=== PATIENT | male | born 1940 | race Caucasian/White ===

== ENCOUNTER 2019-04-02 06:54 | Day surgery (SDC) | payer MEDICARE, OTHER, SELFPAY ==
[2019-03-30 13:18] LABS: Hematocrit 34.9 % (40-54); Hemoglobin 11.5 g/dL (13.0-16.5); Mean Corpuscular Hgb 29.9 pg (27.0-32.0); Mean Corpuscular Volume 90.9 fL (80-94); Mean Platelet Vol. 10.8 fl (6.2-12.0); Platelet Count 273 K/mm3 (150-450); RBC Distribution Width CV 14.2 % (11.6-14.6); RBC Distribution Width SD 47.3 fl (35.1-43.9); Red Blood Count 3.84 M/mm3 (4.6-6.2); White Blood Count 8.3 K/mm3 (4.4-11.0)
[2019-03-30 13:41] LABS: Anion Gap 9 (5-15); BUN 38 mg/dL (7-18); BUN/Creat Ratio 17.7 RATIO (10-20); Calcium,Total 9.2 mg/dL (8.5-10.1); Chloride 109 mmol/L (98-107); Creatinine, Serum 2.15 mg/dL (0.70-1.30); EST Glomerular Filtration Rate 32 mL/min (>60); Est Glom Filt Rate - Afr Amer 38 mL/min (>60); Glucose 136 mg/dL (74-106); Potassium 4.2 mmol/L (3.5-5.1); Sodium Level 139 mmol/L (136-145)
--- NOTE | 2019-04-02 | IMM_PTH ---
PATIENT: BRYANT MEZA Jr. [place] [facility] [place][id number] AGE/SX: 78/M ROOM: RE04/02/[address]: Dr. Arnoldo Faye MD : 1940 BED: DIS: 04/02/2019 SPEC #: [id number] RECD: 04/03/19 10:00 STATUS: RAFAELA REQ #: [id number] BERNARDO: 04/02/19 00:[address]: Arnoldo Faye DEPT: IMMUNOHISTOCHEMISTRY RECD BY: Helene Frias ENTERED: 04/03/19 10:01 SP TYPE: IMMUNO OTHR DR: Dr. Mark Duval MD Tissues: Nasopharynx, NOS Procedures: BCL-2 (add) CD20 (add) CD45 (add) CD5 (add) CD79A (add) CD3 (initial) PHYSICIAN & INSTITUTION [place] [id number] SPECIMEN INFORMATION: Tissue Source: Nasopharyngeal biopsy Clinical Info: Chronic serous otitis media right ear, nasal congestion Specimen Number: [id number] CPT code: 44797, 80910 x5 METHODOLOGY: Deparaffinized sections of prefer/formalin-fixed tissue or PAP/DQ stained slides are incubated with monoclonal/polyclonal antibodies/oligonucleotide probes. Localization is made via biotin free immunoperoxidase method. Appropriate controls are performed and reacted as expected. Results on target cell population are indicated in the following table: RESULTS: ANTIBODY / CLONE RESULT CD3 (PS1) positive CD5 (SP10) positive CD20 (L26) positive CD45 (RP2/18) positive CD79a (11E3) positive BCL-2 (bcl-2/100/D5) positive, focal These tests were developed and their performance characteristics determined by [facility]. They may not have been cleared or approved by the U.S. Food and Drug Administration. The FDA has determined that such clearance or approval is not necessary. INTERPRETATION: Nasopharyngeal biopsy: Consistent with reactive lymphoid hyperplasia. DAYANNA:noreen 04/03/19
[2019-04-02 07:12] VITALS: BP 137/66; PULSE 84; RESP 17; TEMP 36.6; O2SAT 99; BMI 35.6
[2019-04-02 07:41] LABS: Bedside Glucose 153 mg/dL (70-110)
--- NOTE | 2019-04-02 08:30 | PHA_PTH ---
PATIENT: BRYANT MEZA Jr. LOC: [facility] – [place] U#:[id number] AGE/SX: 78/M ROOM: RE04/02/[address]: Dr. Arnoldo Faye MD : 1940 BED: DIS: 04/02/2019 SPEC #: [id number] RECD: 04/02/19 10:42 STATUS: RAFAELA RERui #: [id number] BERNARDO: 04/02/19 08:[address]: Arnoldo Faye DEPT: SURGICAL PATHOLOGY RECD BY: Eamon Menard ENTERED: 04/02/19 11:12 SP TYPE: PHARYNX BX OTHR DR: Dr. Mark Duval MD Tissues: Pharynx, NOS Procedures: Surgery Specimen Level IV HEADER OPERATION: Myringotomy, T tube PRE-OP DIAGNOSIS: Chronic serous otitis media right ear, nasal congestion TISSUE SUBMITTED: Nasopharyngeal biopsy MICROSCOPIC DIAGNOSIS Nasopharyngeal biopsy: Consistent with reactive lymphoid lymphoid hyperplasia. Negative for malignancy. See comment. SJ:noreen 04/03/19 COMMENT The specimen may represent tonsillar/adenoid tissue. Immunohistochemistry ([id number]) supports the above diagnosis. MICROSCOPIC DESCRIPTION Slides are reviewed. GROSS DESCRIPTION Received in fixative is one container labeled with the patient's name and designated nasopharyngeal biopsy. The specimen consists of two irregular fragments of pelayo-pink soft tissue that in aggregate measure 0.6 x 0.3 x 0.1 cm. The specimen is totally submitted in one cassette. / DAYANNA:noreen 04/02/19 TC:5 CPT: 67961
--- NOTE | 2019-04-02 08:32 | DCINST_ITS ---
Discharge Diet: No Restrictions Discharge Activity: Return to Normal Activity Additional Activity Instructions:: Dry ear precautions. Ear drops....5 drops right ear twice a day for 3 days. Allergies/Adverse Reactions: Allergies aspirin Allergy (Verified 04/02/19 07:06) Other CAUSES BLACK STOOL lisinopril Allergy (Verified 04/02/19 07:06) Shortness of breath Medications to take at Discharge Albuterol IH (ProAir) [Proair Hfa (SP)Vent Pts] 1 - 2 puff INHALATION Q4H PRN PRN 03/26/19 Amlodipine [Norvasc] 5 mg PO DAILY 03/26/19 Atorvastatin Calcium [Lipitor] 40 mg PO QHS 03/26/19 Clopidogrel Bisulfate [Plavix] 75 mg PO DAILY 03/26/19 Fluticasone 0.05% [Flonase Nasal [place]] 2 spray NASAL DAILY 03/26/19 Furosemide [Lasix] 20 mg PO DAILY 03/26/19 Glimepiride [Amaryl] 2 mg PO DAILY 03/26/19 Hydroxychloroquine [Plaquenil] 200 mg PO DAILYCM 03/26/19 Losartan Potassium 100 mg PO DAILY 03/26/19 Metoprolol Tartrate 12.5 mg PO BID 03/26/19 Pantoprazole Sodium 40 mg PO DAILY 03/26/19 Sitagliptin Phosphate [Januvia] 50 mg PO DAILY 03/26/19 Tamsulosin HCl [Flomax] 0.4 mg PO DAILY 03/26/19 Primary Care Physician: Mark Duval MD [Primary Care Provider] - Test Results: Test results from this visit will be discussed in further detail at your follow- up appointment, if applicable.
[2019-04-02] MEDS: Ciprofloxacin 0.3% 2.5ml Bottle 1 DRP (08:47)
[2019-04-02] MEDS: Oxymetazoline 0.05% 1 SPRAY SPRAY.BTL 15 SPRAY (08:48)
--- NOTE | 2019-04-02 08:56 | OP.PCM_ITS ---
Report of Operation Date of Procedure: 04/02/19 Pre-Operative Diagnosis: chronic serous otitis media right ear Post-Operative Diagnosis: same Surgery/Procedure Performed:: right myringotomy with T tube. nasopharyngeal biopsy Description of Surgical Findings:: full serous effusion Type of Anesthesia:: General Anesthesiologist: Mark Anthony Washburn Specimen's removed: nasopharyngeal biopsy Estimated Blood Loss (mL): minimal Description of Procedure: The patient was taken to the OR on 04/02/19. He was placed in the supine pos ition on the OR table. He was given sufficient general anesthesia. The operating microscope was used for the ear portion of the case. A speculum was inserted into the right ear. Cerumen was removed using a curette. An incision was placed in the anterior inferior quadrant. Fluid was suctioned from the middle ear with a #5 suction. A T tube was placed without difficulty. Cipro drops were instilled into the middle ear. Next, a zero degree rigid nasal endoscope was passed through the nose and into the nasopharynx. The intended biopsy site was injected with 1% lidocaine with epinephrine. I then biopsied the area of the fossa of Rosenmuller on the right. Hemostasis was achieved with suction cautery. All instrumentation was then removed. The patient was awoken and brought to the recovery room in stable condition. Blood loss minimal, replacement none. Sponge, needle and instrument count were correct at the end of the procedure.
[2019-04-02 09:04] VITALS: BP 116/64; BP 137/66; PULSE 75; RESP 16; TEMP 36.4; O2SAT 94
[2019-04-02 09:26] VITALS: BP 137/66; BP 137/71; PULSE 74; RESP 16; TEMP 36.4; O2SAT 98
[2019-04-02 09:31] LABS: Bedside Glucose 123 mg/dL (70-110)
[2019-04-02 09:48] VITALS: BP 137/66
== END 2019-04-02 10:01 | disposition home or self-care (01) ==
LOC: SDC 06:56 → AC 06:57
PROVIDERS: Family Provider Family Medicine; PCP Family Medicine; Referring Provider Otolaryngology; Visit Provider Otolaryngology
PROC: (CPT 42999; principal; 2019-04-02 08:15)
PROC: (CPT 42999; 2019-04-02 08:15)
DX: H65.21 Chronic serous otitis media, right ear (principal); R09.81 Nasal congestion; I12.9 Hypertensive chronic kidney disease with stage 1 through stage 4 chronic kidney disease, or unspecified chronic kidney disease; E11.22 Type 2 diabetes mellitus with diabetic chronic kidney disease; N18.3 Chronic kidney disease, stage 3 (moderate); M06.9 Rheumatoid arthritis, unspecified; E78.00 Pure hypercholesterolemia, unspecified; G47.30 Sleep apnea, unspecified; H40.9 Unspecified glaucoma; K21.9 Gastro-esophageal reflux disease without esophagitis; Z79.02 Long term (current) use of antithrombotics/antiplatelets; Z79.52 Long term (current) use of systemic steroids; Z79.84 Long term (current) use of oral hypoglycemic drugs; Z79.899 Other long term (current) drug therapy; Z85.72 Personal history of non-Hodgkin lymphomas; Z87.891 Personal history of nicotine dependence
CPT/HCPCS: 42999; 69436; 36415; 80048; 82962; 85027; 88305; 88341; 88342; J7120; J2405

== ENCOUNTER 2020-10-03 12:35 | Emergency (ER) | payer MEDICARE, OTHER, SELFPAY ==
[2020-10-03 12:36] VITALS: BP 198/88; PULSE 87; RESP 18; TEMP 36.2; O2SAT 98; BMI 34.9
--- NOTE | 2020-10-03 12:52 | CT_ITS ---
STUDY: CT ABDOMEN AND PELVIS WITHOUT CONTRAST REASON FOR EXAM: Male, 80 years old. LLQ ABD PAIN RADIATING INTO RLQ. CONSTIPATION. DYSURIA. RADIATION DOSAGE (If Supplied By Facility): CTDIvol = ( 20.91 ) mGy, DLP = ( 1039.76 ) mGycm TECHNIQUE: Transaxial images were obtained from the dome of the diaphragm to the symphysis pubis without oral contrast, and without intravenous contrast. Sagittal and coronal images were reconstructed. Individualized dose optimization techniques were used for this CT. COMPARISON: None. FINDINGS: Minimal increased markings at the left lung base most likely representing linear atelectasis and/or scarring. Coronary artery calcification. Normal liver. Normal gallbladder and extrahepatic biliary system. Normal spleen. Normal pancreas. Normal bilateral adrenal glands. Normal right kidney. Normal left kidney. Nonspecific bilateral perinephric stranding. There is a small hiatal hernia. Normal small intestine. There are multiple colonic diverticula consistent with diverticulosis. The sigmoid colon is redundant. It extends into the right-sided At the level of the right hemipelvis. Increased markings are seen in the fat in the right lower quadrant. There may be a mild degree of diverticulitis with involvement of the right lower quadrant. There is non-visualization of the appendix. There is diffuse atherosclerotic calcification of the abdominal aorta and its major visceral branches, without a demonstrated aneurysm. Normal inferior vena cava. Normal retroperitoneum. Normal urinary bladder. There is enlargement of the prostate gland. It measures 3.7 cm x 5.8 cm. This causes indentation of the bladder base. There is a small umbilical hernia containing fat. Moderate degree of disc space narrowing with spondylosis at the L2-L3 level. Loss of the normal lumbar lordosis. CT/Abdomen/Pelvis without Cont IMPRESSION: Sigmoid diverticulosis without findings to suggest a mild degree of sigmoid diverticulitis. The sigmoid colon is redundant and extends into the right lower quadrant where there is evidence of inflammatory changes in the surrounding peritoneal fat. Electronically Signed: Ej Fields MD at 13:31 EST , Service support ,
--- NOTE | 2020-10-03 12:55 | ED.VIS.GI ---
History of Present Illness Chief Complaint: Abd Pain Narrative: Patient presenting for evaluation secondary to abdominal pain. Patient reports that he has a history of lymphoma, has a minor history of some abdominal surgeries in the past. He does report that he has had a past history of bowel obstructions, and states that today he feels as if he may potentially have one. Patient reports that he woke up today feeling as if he was having abdominal pain and distention. Abdominal pain is a continuous pain across his lower abdomen that is sharp worse with palpation and movement. Patient has had a normal bowel movement yesterday, but states that today he is unable to pass flatus. He has nausea but no vomiting. He denies any fevers. Review of systems otherwise negative. Past Medical History - Allergies and Home Meds Allergies/Adverse Reactions: Allergies aspirin Allergy (Verified 10/03/20 12:36) Other CAUSES BLACK STOOL lisinopril Allergy (Verified 10/03/20 12:36) Shortness of breath Primary Care Physician: Mark Duval MD [Primary Care Provider] - Prior records reviewed: Yes Past Medical History: - - BPH, hypertension, hyperlipidemia, diabetes, prior history of bowel obstructions, lymphoma Lives: Spouse/ Significant Other Smoking Status: Former smoker Alcohol: None Drugs: None Review of Systems All systems negative except as indicated General: Denies: Chills, Fever, Sweats Eyes: Denies: Visual changes - bilaterally, Diplopia ENT: Denies: Rhinorrhea, Sore throat Cardiovascular: Denies: Chest pain, Palpitations Respiratory: Denies: Dyspnea, Cough, Dyspnea on exertion Gastrointestinal: Reports: Abdominal pain, Nausea, Constipation. Denies: Vomiting Genitourinary: Denies: Dysuria, Hematuria, Frequency Musculoskeletal: Denies: Back pain, Extremity Pain Skin: Denies: Rash, Wounds Neurological: Denies: Headache, Weakness, Numbness Physical Exam Vital Signs/Narrative: Vital Signs Temp Pulse Resp BP Pulse Ox 10/03/20 12:36 97.1 F L 87 18 198/88 H 98 Inital Vital Signs reviewed: Yes General: Well nourished, Well developed, - - Visibly uncomfortable secondary to pain otherwise not in physiologic distress Head: Normocephalic, Atraumatic Eyes: Perrl, EOMI. Negative for: Scleral icterus ENT: Moist mucous membranes, No rhinorrhea Neck: Supple, Nontender Cardiovascular: Regular rate, Regular rhythm, Murmur - 2 out of 6 systolic, - - 2+ radial pulses bilaterally symmetric Respiratory: No distress, CTA bilaterally, Chest nontender Abdomen: - - Abdomen is diffusely tender and distended with tympany. Back: Nontender, Normal Inspection Extremities: Nontender, Edema - Trace bilateral Skin: Normal color, No rash Neurological: Alert, Oriented x3, Cranial nerves II-XII grossly intact, Normal Strength, Normal Sensation Psychological: Normal affect, Normal Mood Diagnostic/Tx/Re-eval Clinical Impression(s) from Imaging Studies Abdomen/Pelvis CT 10/03/20 12:52 IMPRESSION: Sigmoid diverticulosis without findings to suggest a mild degree of sigmoid diverticulitis. The sigmoid colon is redundant and extends into the right lower quadrant where there is evidence of inflammatory changes in the surrounding peritoneal fat. Electronically Signed: Ej Fields MD at 13:31 EST , Service support , Laboratory Data 10/03/20 10/03/20 10/03/20 12:51 13:40 13:40 WBC 14.6 H RBC 4.14 L Hgb 11.9 L Hct 36.5 L MCV 88.2 MCH 28.7 MCHC 32.6 RDW Std Deviation 46.2 H RDW Coeff of Christiano 14.3 Plt Count 345 MPV 10.4 Immature Gran % (Auto) 0.600 Neut % (Auto) 88.1 H Lymph % (Auto) 3.4 L [place] % (Auto) 7.5 Eos % (Auto) 0.1 Baso % (Auto) 0.3 Absolute Neuts (auto) 12.8 H Absolute Lymphs (auto) 0.50 L Nucleated RBC % 0 Differential Comment SCANNED Sodium 137 Potassium 4.8 Chloride 107 Carbon Dioxide 22.0 Anion Gap 8 BUN 36 H Creatinine 1.82 H Estim Creat Clear Calc 37.19 Est GFR (MDRD) Af Amer 46 L Est GFR (MDRD) Non-Af 38 L BUN/Creatinine Ratio 19.8 Glucose 176 H Lactic Acid Calcium 9.0 Total Bilirubin 0.40 AST 17 ALT 28 Alkaline Phosphatase 76 Total Protein 8.5 H Albumin 3.7 Globulin 4.8 H Albumin/Globulin Ratio 0.8 L Lipase 178 Urine Color Yellow Urine Clarity Clear Urine pH 5.0 Ur Specific [place] 1.015 Urine Protein 100 H Urine Glucose (UA) Normal Urine Ketones Negative Urine Occult Blood 25 H Urine Nitrite Negative Urine Bilirubin Negative Urine Urobilinogen Normal Ur Leukocyte Esterase Negative Urine RBC 0-5 SEEN Urine WBC 0 SEEN Ur Squamous Epith Cells 0 SEEN Urine Bacteria 0 SEEN Urine Mucus 0 SEEN 10/03/20 13:40 WBC RBC Hgb Hct MCV MCH MCHC RDW Std Deviation RDW Coeff of Christiano Plt Count MPV Immature Gran % (Auto) Neut % (Auto) Lymph % (Auto) [place] % (Auto) Eos % (Auto) Baso % (Auto) Absolute Neuts (auto) Absolute Lymphs (auto) Nucleated RBC % Differential Comment Sodium Potassium Chloride Carbon Dioxide Anion Gap BUN Creatinine Estim Creat Clear Calc Est GFR (MDRD) Af Amer Est GFR (MDRD) Non-Af BUN/Creatinine Ratio Glucose Lactic Acid 1.5 Calcium Total Bilirubin AST ALT Alkaline Phosphatase Total Protein Albumin Globulin Albumin/Globulin Ratio Lipase Urine Color Urine Clarity Urine pH Ur Specific [place] Urine Protein Urine Glucose (UA) Urine Ketones Urine Occult Blood Urine Nitrite Urine Bilirubin Urine Urobilinogen Ur Leukocyte Esterase Urine RBC Urine WBC Ur Squamous Epith Cells Urine Bacteria Urine Mucus - Medical Decision Making Patient presented for evaluation secondary to abdominal pain. Patient had an IV established he was given morphine and Zofran. Laboratory studies demonstrate a leukocytosis of 14, chemistry shows elevation of creatinine which is actually slightly below the patient's prior creatinine. Urinalysis demonstrates no signs of infection. CT abdomen and pelvis was performed which shows some evidence of sigmoid diverticulitis without evidence of perforation or abscess. Repeat evaluation of the patient at 1445 shows him to have symptomatic improvement, stable vitals with maybe a slight low-grade fever but no signs of tachycardia hypotension. I had a discussion with the patient that he has early diverticulitis and likely is well suited for outpatient management. Patient did request pain medication at home, also be sent home with [place], Colace, and a course of Augmentin. I educated the patient on signs and symptoms which to return. He will follow-up with his primary care physician. Patient was discharged in improved condition. ED Disposition - Plan for ED Patient: Disposition: Home or Assisted Living Diagnosis: Diverticulitis Instructions: ED Diverticulitis Prescriptions: Amox/Clavulanate Tablet [Augmentin Tablet] 875 mg PO TID #42 tab Prescription Printed Docusate Sodium [Colace] 100 mg PO DAILY #20 cap Prescription Printed Hydrocodone Bitart/Apap 5-325 [[place] 5MG-325MG] 1 tab PO Q6H PRN PRN 3 Days #12 tab PRN Reason: Pain Prescription Printed Referrals: Mark Duval MD [Primary Care Provider] - 5-7 Days
[2020-10-03 13:03] VITALS: BP 165/78; PULSE 90; RESP 21; TEMP 36.7; O2SAT 98
[2020-10-03] MEDS: Ondansetron 4 MG/2 ML Vial IV (13:39)
[2020-10-03] MEDS: morphine 8 MG/ML Syringe IV (13:40)
[2020-10-03] MEDS: 0.9% Normal Saline 1,000 ML 125 ML IV (13:41)
[2020-10-03 13:50] LABS: Bacteria 0 SEEN /hpf (None Seen); Mucous, Urine 0 SEEN /hpf (<or=2+); Squamous Epithelial Cells - UA 0 SEEN /hpf (0-5); White Blood Cells 0 SEEN /hpf (0-5)
[2020-10-03 13:51] LABS: Color, Urine Yellow (Yellow); Glucose, Dipstick Normal (Normal); Ketone-Dipstick Negative (Negative); Leukocyte Esterase-Dipstick Negative /ul (Negative); Nitrite-Dipstick Negative (Negative); Occult Blood-Urine 25 /ul (Negative); Protein-Dipstick 100 mg/dl (Negative); Specific Gravity, Urine 1.015 (1.002-1.030); Urine Bilirubin Dipstick Negative (Negative); Urine Clarity Clear (Clear); Urine Urobilinogen Normal (Normal)
[2020-10-03 13:59] LABS: Absolute Neutrophil Count 12.8 X10^3/uL (2.0-7.7); Basophil# 0.05 X10^3/uL; Basophil% 0.3 % (0-1); Eosinophil# 0.01 X10^3/uL; Eosinophils% 0.1 % (0-5); Hematocrit 36.5 % (40-54); Hemoglobin 11.9 g/dL (13.0-16.5); Lymphocyte % 3.4 % (19-41); Mean Corp Hgb Conc 32.6 g/dL (32-36); Mean Corpuscular Hgb 28.7 pg (27.0-32.0); Mean Corpuscular Volume 88.2 fL (80-94); Mean Platelet Vol. 10.4 fl (6.2-12.0); Monocyte# 1.09 X10^3/uL; Monocyte% 7.5 % (0-10); NRBC Flagged by Analyzer 0 % (0-5); Neutrophil # 12.84 X10^3/uL (2.7-7.7); Neutrophil % 88.1 % (47-70); POSITIVE DIFFERENTIAL YES; Platelet Count 345 K/mm3 (150-450); RBC Distribution Width CV 14.3 % (11.6-14.6); RBC Distribution Width SD 46.2 fl (35.1-43.9); Red Blood Count 4.14 M/mm3 (4.6-6.2); White Blood Count 14.6 K/mm3 (4.4-11.0)
[2020-10-03 14:00] LABS: Red Blood Cells-Urine 0-5 SEEN /hpf (0-5)
[2020-10-03 14:10] LABS: Differential Indicated SCAN CRITERIA MET
[2020-10-03 14:17] LABS: ALB/GLOB Ratio 0.8 RATIO (0.9-2.4); AST(SGOT) 17 U/L (15-37); Alanine Aminotransfer ALT/SGPT 28 U/L (16-61); Albumin, Serum 3.7 g/dL (3.2-5.0); Alkaline Phosphatase 76 U/L (45-117); Anion Gap 8 (5-15); BUN 36 mg/dL (7-18); BUN/Creat Ratio 19.8 RATIO (10-20); Chloride 107 mmol/L (98-107); Creatinine, Serum 1.82 mg/dL (0.70-1.30); Differential Comment SCANNED; EST Glomerular Filtration Rate 38 mL/min (>60); Est Glom Filt Rate - Afr Amer 46 mL/min (>60); Estimated Creatinine Clearance 37.19 ml/min; Globulin 4.8 g/dL (2.2-4.2); Glucose 176 mg/dL (74-106); Lipase 178 U/L (73-393); Potassium 4.8 mmol/L (3.5-5.1); Protein, Total 8.5 g/dL (6.4-8.2); Sodium Level 137 mmol/L (136-145)
[2020-10-03 14:24] LABS: Lactic Acid 1.5 mmol/L (0.4-1.9)
[2020-10-03 14:43] VITALS: BP 162/73; PULSE 98; RESP 19; TEMP 37.9; O2SAT 97
[2020-10-03 15:16] VITALS: BP 163/70; PULSE 91; RESP 20; O2SAT 93
== END 2020-10-03 15:19 | disposition home or self-care (01) ==
PROVIDERS: Emergency Provider Emergency Medicine; PCP Family Medicine
DX: K57.30 Diverticulosis of large intestine without perforation or abscess without bleeding (principal); R10.9 Unspecified abdominal pain; E11.9 Type 2 diabetes mellitus without complications; I10 Essential (primary) hypertension; E78.5 Hyperlipidemia, unspecified; N40.0 Benign prostatic hyperplasia without lower urinary tract symptoms; Z85.72 Personal history of non-Hodgkin lymphomas; Z87.891 Personal history of nicotine dependence
CPT/HCPCS: 74176; 80053; 81001; 83605; 83690; 85025; 96361; 96374; 96375; 99284; J7030; J2405

== ENCOUNTER 2020-11-30 22:36 | Emergency (ER) | payer MEDICARE, OTHER, SELFPAY ==
[2020-11-30 22:37] VITALS: BP 156/73; PULSE 95; RESP 14; RESP 16; TEMP 36.8; O2SAT 97; O2SAT 98; BMI 33.6
--- NOTE | 2020-11-30 22:54 | ED.DCSUM_ITS ---
- ER Visit Summary Date of Service: 11/30/20 Chief Complaint: Constipation History of Present Illness: The patient is a 80 M who presents with constipation that began 4 days ago. Patient states he has pressure over his rectum. Patient states his pain is worse whenever he hit attempt to have a bowel movement. Patient states he tried a fleets enema at home without any results. Patient states he was only able to get small amount of the enema fluid into his rectum. Patient admits to some urinary hesitancy. Patient states he is only unable to urinate small amounts. Patient denies any dysuria or hematuria. Patient denies any fevers or chills. Patient states she did have an episode of nausea and v omiting 1 week ago where he vomited twice at home. Patient denies any hematemesis or coffee-ground emesis. Patient states this has resolved. Physical Examination: Vital signs are stable. Patient is afebrile. Patient is in no acute distress. Oral mucosa is pink and moist. Neck is supple. Trachea is midline. There is no JVD noted. Heart was regular rate and rhythm. Lungs are clear and equal bilaterally. Abdomen is soft. Bowel sounds are normal. There is no tenderness. There is no rebound or guarding noted. There is some mild distention noted. Skin is warm dry. Cranial nerves II through XII are intact. There are no focal motor or sensory deficits noted. Extremities are intact. There is no calf tenderness or edema. Test Results: Acute abdominal x-rays were obtained. There are 5 views. On my interpretation, there is moderate constipation. There is no evidence of obstruction. Radiologist also interpreted the x-ray and agrees. Emergency Department Course and Treatment: Patient was given a soapsuds enema here. Patient had minimal results with this. Patient was given a repeat soa psuds enema. Patient had better results with this. Patient felt better on reevaluation. Patient was given a prescription for Dulcolax. Patient was instructed to follow-up with his primary care physician in 5 to 7 days. Patient understood and was agreeable with the plan. All questions were answered. Disposition: Discharge home Impression: 1. Constipation This note was generated with [employer] software. It may contain incorrect words, spelling, and punctuation that were not noted in review of the chart prior to signing ED Disposition - Plan for ED Patient: Disposition: Home or Assisted Living Diagnosis: Constipation Instructions: ED Constipation (Adult) Prescriptions: Docusate Sodium [Dulcolax Stool Softener] 100 mg PO DAILY PRN PRN #30 capsule PRN Reason: Constipation Prescription Printed Referrals: Mark Duval MD [Primary Care Provider] - 5-7 Days
[2020-11-30] MEDS: Lidocaine Jelly 2% 20 ML Syringe (URO-JET) 20 APPLIC TOPICAL (23:00)
--- NOTE | 2020-11-30 23:00 | RAD_ITS ---
STUDY: X-RAY - ACUTE ABDOMINAL SERIES REASON FOR EXAM: Male, 80 years old. Constipation TECHNIQUE: Single view of the chest. Supine, and erect view(s) of the abdomen were obtained. COMPARISON: None. FINDINGS: The lungs are clear and expanded. Normal size heart. Normal mediastinum and luz. Normal visualized pulmonary arteries. Normal visualized aortic arch and descending thoracic aorta. There is a moderate amount of colonic fecal material. The soft tissue structures of the abdomen and pelvis are unremarkable. Normal visualized osseous structures. RAD/Acute Abdomen Inc Chest IMPRESSION: Lungs are clear. Moderate constipation. No evidence of obstruction Electronically Signed: Bret Martin DO at 23:19 EDT Tel , Service support ,
[2020-11-30 23:19] LABS: Bacteria 0 SEEN /hpf (None Seen); Mucous, Urine 0 SEEN /hpf (<or=2+); Red Blood Cells-Urine 0 SEEN /hpf (0-5); Squamous Epithelial Cells - UA 0 SEEN /hpf (0-5); White Blood Cells 0 SEEN /hpf (0-5)
[2020-11-30 23:23] LABS: Color, Urine Yellow (Yellow); Glucose, Dipstick Normal (Normal); Ketone-Dipstick Negative (Negative); Leukocyte Esterase-Dipstick Negative /ul (Negative); Nitrite-Dipstick Negative (Negative); Occult Blood-Urine Negative /ul (Negative); Protein-Dipstick 30 mg/dl (Negative); Urine Bilirubin Dipstick Negative (Negative); Urine Clarity Clear (Clear); Urine Urobilinogen Normal (Normal)
[2020-12-01 01:27] VITALS: BP 160/79; PULSE 70; RESP 16
== END 2020-12-01 01:46 | disposition home or self-care (01) ==
PROVIDERS: Emergency Provider Emergency Medicine; PCP Family Medicine
DX: K59.00 Constipation, unspecified (principal); R11.2 Nausea with vomiting, unspecified; R39.11 Hesitancy of micturition; J47.9 Bronchiectasis, uncomplicated; E11.9 Type 2 diabetes mellitus without complications; I25.10 Atherosclerotic heart disease of native coronary artery without angina pectoris; M06.9 Rheumatoid arthritis, unspecified; Z79.84 Long term (current) use of oral hypoglycemic drugs; Z79.02 Long term (current) use of antithrombotics/antiplatelets; Z79.899 Other long term (current) drug therapy; Z85.72 Personal history of non-Hodgkin lymphomas
CPT/HCPCS: 74022; 81001; 99285; P9612

== ENCOUNTER 2021-01-05 14:10 | Inpatient (IN) | payer MEDICARE, OTHER, SELFPAY ==
[2021-01-05] VITALS (10 sets, daily range): BP systolic 128–164; BP diastolic 58–75; PULSE 60–90; RESP 15–18; TEMP 36.3–36.7; O2SAT 97–100; BMI 34.9; BMI 34.6
--- NOTE | 2021-01-05 14:50 | EKG12_ITS ---
Test Reason : GI BLEED Blood Pressure : / mmHG Vent. Rate : 069 BPM Atrial Rate : 069 BPM P-R Int : 182 ms QRS Dur : 144 ms QT Int : 438 ms P-R-T Axes : 026 050 005 degrees QTc Int : 469 ms Sinus rhythm with Premature atrial complexes Right bundle branch block Abnormal ECG Confirmed by SHAILESH LEBRON, ISMAEL ([id number]), editorial manager PARISA PEREZ ([id number]) on 01/07/2021 9:40:29 AM Referred By: Confirmed By:ISMAEL CASH MD
--- NOTE | 2021-01-05 15:07 | EDS_ITS ---
HPI HPI - GI History of Present Illness Chief Complaint: GI Bleed Informant: patient and spouse/S.O. Abdominal Pain/Flank Pain Onset: Today Context: Sudden Onset Timing: - (Noted with last 2 bowel movements) Location: - (Patient denies any pain. He states initially dark red mixed with stool. Now red everywhere) Current Severity: Moderate Maximum Severity: Moderate Worsened by: Nothing Relieved by: Nothing Nausea/Vomiting/Emesis GI Symptom: Negative for Nausea and Vomiting Diarrhea/Melena/Hematochezia GI Symptom: Positive for Melena and Hematochezia; Negative for Diarrhea Onset: Today Stool Quality: Positive for Loose Associated Symptoms Associated Symptoms: Negative for Dysuria, Frequency and Hematuria Narrative Narrative: Is an elderly male on Plavix because of heart condition who had a polypectomy performed [address] Dale Franklin. Patient states 1 polyp was in the transverse colon and one polyp was in the descending colon. He also has history of diverticulosis. He denies history of hemorrhoids. He denies orthostatic symptoms. He denies dyspnea with exertion. Denies chest discomfort with exertion. commented he does look paler than normal. He is not on an anticoagulant. He denies headache, visual, ocular auditory symptoms. He denies hematuria. He denies bruising easily. He denies history of bleeding ulcer. Prior similar symptoms: No Recent Illness/Hospitalization: Yes PFSH [facility] Home Medications amlodipine 5 mg PO DAILY 03/26/19 [History Last Taken 04/02/19 06:30] atorvastatin 40 mg PO QHS 03/26/19 [History Last Taken Unknown] clopidogrel 75 mg PO DAILY 03/26/19 [History Last Taken Unknown] fluticasone propionate 2 spray NASAL DAILY 03/26/19 [History Last Taken Unknown] furosemide 20 mg PO DAILY 03/26/19 [History Last Taken Unknown] glimepiride 2 mg PO DAILY 03/26/19 [History Last Taken Unknown] hydroxychloroquine 200 mg PO BID 03/26/19 [History Last Taken Unknown] losartan 100 mg PO DAILY 03/26/19 [History Last Taken 04/02/19 06:30] metoprolol tartrate 12.5 mg PO BID 03/26/19 [History Last Taken 04/02/19 06:30] pantoprazole 40 mg PO DAILY 03/26/19 [History Last Taken 04/02/19 06:30] sitagliptin 50 mg PO DAILY 03/26/19 [History Last Taken Unknown] tamsulosin 0.4 mg PO DAILY 03/26/19 [History Last Taken Unknown] amoxicillin-pot clavulanate 875 mg PO TID #42 tab 10/03/20 [Rx Last Taken Unknown] docusate sodium 100 mg PO DAILY #20 cap 10/03/20 [Rx Last Taken Unknown] fluticasone propion-salmeterol 1 puff INHALATION BID 10/03/20 [History Last Taken Unknown] docusate sodium 100 mg PO DAILY PRN PRN #30 capsule 12/01/20 [Rx Last Taken Unknown] Allergy/AdvReac Type Severity Reaction Status Date / Time aspirin Allergy Other Verified 01/05/21 14:13 lisinopril Allergy Shortness Verified 01/05/21 14:13 of breath Social History (Updated 01/05/21 @ 15:[address] Hai Christensen MD) household members: spouse Smoking Status: Former smoker alcohol intake: current alcohol intake frequency: 0-2 drinks per day substance use type: does not use ROS ROS ED Constitutional Constitutional ED: Denies chills, fever(s), subjective or weight loss ENT ENT ED: Denies ear pain, rhinorrhea or sore throat Cardiovascular Cardiovascular: Denies chest pain, orthopnea, palpitations or racing heartbeat Respiratory/Chest Respiratory/Chest: Denies cough, dyspnea, dyspnea on exertion or orthopnea Gastrointestinal Gastrointestinal: Reports melena; Denies abdominal pain, nausea or vomiting Genitourinary Genitourinary ED: Denies dysuria, hematuria or urinary frequency Musculoskeletal Musculoskeletal: Denies arthralgias, back pain, myalgias or neck pain Integumentary Denies rash Neurologic Neurologic: Denies headache(s), paresthesias or weakness Endocrine Endocrinology: Denies polydipsia or polyuria Hematologic/Lymphatic Hematologic/Lymphatic: Denies easy bruising EXAM Physical Exam Const Vital Signs: 01/05/21 14:11 Temperature 97.4 F L Temperature Source Temporal Pulse Rate 74 Respiratory Rate 15 Blood Pressure 128/75 H Blood Pressure Mean 92 Pulse Ox 99 Oxygen Delivery Method Room Air Positive well nourished, well developed and obese General Appearance ED: well developed Nutritional Appearance: obese HEENT Reports moist mucous membranes normocephalic and atraumatic Eyes PERRL and EOMs intact bilaterally General Eye ED: Yes pale conjunctiva; Negative for scleral icterus Neck no lymphadenopathy, supple and no JVD Resp normal respiratory effort and clear to auscultation bilaterally Cardio regular rate, regular rhythm, S1 normal heart sound, S2 normal heart sound and no murmurs GI non-tender, non-distended and no masses GI Narrative: There are no obvious hemorrhoids visualized. There is no fissures or fistulas noted. Prostate is normal size nontender. Stool is maroon. Auscultation: normoactive bowel sounds Palpation: soft Back/Spine no CVA tenderness Cervical Spine: Negative for cervical spine tenderness Thoracic Spine / Upper Back: Negative for thoracic spinal tenderness Extremity full ROM General Extremety ED: Negative for edema General Extremity: Negative for edema Neuro CN's II-XII intact bilaterally, no sensory deficits noted and gait normal Sensorium / Orientation: alert, oriented to person, oriented to place and orien zita to time Motor Exam: strength 5/5 throughout Psych mental status grossly normal Skin Lesions: no lesions Rashes: no rashes MDM MDM MDM Narrative Medical decision making narrative: Patient presents with findings suggestive of a lower GI bleed. This may be due to polypectomy versus diverticular bleed. Since he had a colonoscopy with polypectomy performed by Dr. Sherif Franklin, Dr. Franklin was contacted and will see patient in the emergency department. Patient was typed and screened appropriate blood work was ordered. Patient was informed he will require admission to the hospital. EKG was obtained to rule out cardiac ischemia. CBC to assess H&H. Basic metabolic panel to assess renal function since she has history of stage III renal disease. Also to assess BUN to creatinine ratio. EKG Initial EKG: Attestation: I personally reviewed and interpreted this EKG as follows: Interpretation: Sinus Rhythm Comments: Sinus rhythm with a ventricular rate of 69. There is premature atrial beat noted. OH interval is 182 ms. QS duration 144 ms. QT intervals 438 ms. There is evidence of a RR prime in V1. This may be an atypical right bundle branch block. Discharge Plan Triage Chief Complaint: GI Bleed ED Provider: Hai Christensen Dx/Rx/DC Orders Prescriptions: No Action atorvastatin 40 MG tablet 40 mg PO QHS RF: 0 clopidogrel 75 MG tablet 75 mg PO DAILY RF: 0 amlodipine 5 MG tablet 5 mg PO DAILY RF: 0 glimepiride 2 MG tablet 2 mg PO DAILY RF: 0 tamsulosin 0.4 MG capsule 0.4 mg PO DAILY RF: 0 furosemide 20 MG tablet 20 mg PO DAILY RF: 0 hydroxychloroquine 200 MG tablet 200 mg PO BID RF: 0 losartan 100 MG tablet 100 mg PO DAILY RF: 0 fluticasone propionate 1 SPRAY spray,suspension 2 spray NASAL DAILY RF: 0 metoprolol tartrate 25 MG tablet 12.5 mg PO BID RF: 0 pantoprazole 40 MG tablet,delayed release (DR/EC) 40 mg PO DAILY RF: 0 sitagliptin 50 MG tablet 50 mg PO DAILY RF: 0 fluticasone propion-salmeterol 1 PUFF inhaler 1 puff INHALATION BID RF: 0 amoxicillin-pot clavulanate 875 MG tablet 875 mg PO TID Qty: 42 RF: 0 docusate sodium 100 MG capsule 100 mg PO DAILY Qty: 20 RF: 0 docusate sodium 100 MG capsule 100 mg PO DAILY PRN PRN (Reason: Constipation) Qty: 30 RF: 0 Primary Care Provider: Mark Duval
--- NOTE | 2021-01-05 15:14 | EX.ED.DYSGE1 ---
HPI History of Present Illness Chief Complaint: GI Bleed [facility] Medical History (Updated 01/05/21 @ 17:[address] Hai Christensen MD) Alcohol abuse Anemia Bronchiectasis Cataracts, bilateral Chronic pain Coronary artery disease CPAP (continuous positive airway pressure) dependence Diabetes Diverticula of colon Former smoker GERD (gastroesophageal reflux disease) GI bleed History of left heart catheterization Kidney disease Non-Hodgkin lymphoma in remission Parotid adenoma Rheumatoid arthritis Sleep apnea Home Medications amlodipine 5 mg PO DAILY 03/26/19 [History Last Taken 04/02/19 06:30] atorvastatin 40 mg PO QHS 03/26/19 [History Last Taken Unknown] clopidogrel 75 mg PO DAILY 03/26/19 [History Last Taken Unknown] fluticasone propionate 2 spray NASAL DAILY 03/26/19 [History Last Taken Unknown] furosemide 20 mg PO DAILY 03/26/19 [History Last Taken Unknown] glimepiride 2 mg PO DAILY 03/26/19 [History Last Taken Unknown] hydroxychloroquine 200 mg PO BID 03/26/19 [History Last Taken Unknown] losartan 100 mg PO DAILY 03/26/19 [History Last Taken 04/02/19 06:30] metoprolol tartrate 12.5 mg PO BID 03/26/19 [History Last Taken 04/02/19 06:30] pantoprazole 40 mg PO DAILY 03/26/19 [History Last Taken 04/02/19 06:30] sitagliptin 50 mg PO DAILY 03/26/19 [History Last Taken Unknown] tamsulosin 0.4 mg PO DAILY 03/26/19 [History Last Taken Unknown] amoxicillin-pot clavulanate 875 mg PO TID #42 tab 10/03/20 [Rx Last Taken Unknown] docusate sodium 100 mg PO DAILY #20 cap 10/03/20 [Rx Last Taken Unknown] fluticasone propion-salmeterol 1 puff INHALATION BID 10/03/20 [History Last Taken Unknown] docusate sodium 100 mg PO DAILY PRN PRN #30 capsule 12/01/20 [Rx Last Taken Unknown] Allergy/AdvReac Type Severity Reaction Status Date / Time aspirin Allergy Other Verified 01/05/21 14:13 lisinopril Allergy Shortness Verified 01/05/21 14:13 of breath Surgical History (Updated 01/05/21 @ 17:[address] Hai Christensen MD) History of ankle fusion History of knee replacement procedure of left knee Hx of lymph node excision Social History (Updated 01/05/21 @ 15:[address] Hai Christensen MD) household members: spouse Smoking Status: Former smoker alcohol intake: current alcohol intake frequency: 0-2 drinks per day substance use type: does not use EXAM Physical Exam Const Vital Signs: 01/05/21 14:11 01/05/21 15:52 01/05/21 16:11 Temperature 97.4 F L Temperature Source Temporal Pulse Rate 74 81 Pulse Rate [Lying] 60 Pulse Rate [Sitting] 62 Pulse Rate [Standing] 90 Respiratory Rate 15 16 Blood Pressure 128/75 H Blood Pressure [Lying] 146/70 H Blood Pressure [Sitting] 143/73 H Blood Pressure [Standing] 131/65 H Blood Pressure Mean 92 Blood Pressure Mean [Lying] 95 Blood Pressure Mean [Sitting] 96 Blood Pressure Mean [Standing] 87 Pulse Ox 99 99 Oxygen Delivery Method Room Air Room Air [facility] MDM Lab Data Attestation: I reviewed the patient's lab results. Lab results narrative: Hemoglobin is down approximately 1.5 g from baseline. Creatinine is elevated 1.68. Patient does have an elevated BUN to creatinine ratio consistent with acute GI bleed. Coags are normal. Lactate is normal. Case was discussed with Dr. Franklin as aforementioned. Labs: Laboratory Results - last 24 hr 01/05/21 01/05/21 01/05/21 15:20 15:20 15:20 WBC 6.8 RBC 3.45 L Hgb 10.1 L Hct 30.9 L MCV 89.6 MCH 29.3 MCHC 32.7 RDW Std Deviation 52.0 H RDW Coeff of Christiano 15.8 H Plt Count 247 MPV 10.4 Immature Gran % (Auto) 0.400 Neut % (Auto) 70.2 H Lymph % (Auto) 15.1 L [place] % (Auto) 10.5 H Eos % (Auto) 3.1 Baso % (Auto) 0.7 Absolute Neuts (auto) 4.7 Absolute Lymphs (auto) 1.02 Nucleated RBC % 0 PT 12.7 INR 1.0 APTT 27.8 Sodium 137 Potassium 4.0 Chloride 107 Carbon Dioxide 24.0 Anion Gap 6 BUN 32 H Creatinine 1.68 H Estim Creat Clear Calc 40.29 Est GFR (MDRD) Af Amer 51 L Est GFR (MDRD) Non-Af 42 L BUN/Creatinine Ratio 19.0 Glucose 141 H Lactic Acid Calcium 8.9 Blood Type Antibody Screen 01/05/21 01/05/21 15:20 15:20 WBC RBC Hgb Hct MCV MCH MCHC RDW Std Deviation RDW Coeff of Christiano Plt Count MPV Immature Gran % (Auto) Neut % (Auto) Lymph % (Auto) [place] % (Auto) Eos % (Auto) Baso % (Auto) Absolute Neuts (auto) Absolute Lymphs (auto) Nucleated RBC % PT INR APTT Sodium Potassium Chloride Carbon Dioxide Anion Gap BUN Creatinine Estim Creat Clear Calc Est GFR (MDRD) Af Amer Est GFR (MDRD) Non-Af BUN/Creatinine Ratio Glucose Lactic Acid 0.9 Calcium Blood Type O POSITIVE Antibody Screen NEGATIVE EKG Initial EKG: Attestation: I personally reviewed and interpreted this EKG as follows: Interpretation: Sinus Rhythm Comments: Sinus rhythm with a ventricular rate of 69. There is a premature atrial beat noted. MA interval is 182 ms. Cures duration 144 ms with an R prime in V1 and suggestive of an atypical right bundle branch block. QT intervals 438 ms. [place] of the right. Critical Care Time Critical care time (excluding procedures): 30-74 minutes (Time 22 minutes, including history, physical, review of prior records), Discussing w/Patient &/or Family/Welcome Wagon Host/Hostess, Discussing w/Consultants and Arranging Admission or Transfer Discharge Plan Triage Chief Complaint: GI Bleed ED Provider: Hai Christensen Dx/Rx/DC Orders Clinical Impression: Acute lower gastrointestinal bleeding, Anemia due to GI blood loss, S/P colonoscopy with polypectomy Prescriptions: No Action atorvastatin 40 MG tablet 40 mg PO QHS RF: 0 clopidogrel 75 MG tablet 75 mg PO DAILY RF: 0 amlodipine 5 MG tablet 5 mg PO DAILY RF: 0 glimepiride 2 MG tablet 2 mg PO DAILY RF: 0 tamsulosin 0.4 MG capsule 0.4 mg PO DAILY RF: 0 furosemide 20 MG tablet 20 mg PO DAILY RF: 0 hydroxychloroquine 200 MG tablet 200 mg PO BID RF: 0 losartan 100 MG tablet 100 mg PO DAILY RF: 0 fluticasone propionate 1 SPRAY spray,suspension 2 spray NASAL DAILY RF: 0 metoprolol tartrate 25 MG tablet 12.5 mg PO BID RF: 0 pantoprazole 40 MG tablet,delayed release (DR/EC) 40 mg PO DAILY RF: 0 sitagliptin 50 MG tablet 50 mg PO DAILY RF: 0 fluticasone propion-salmeterol 1 PUFF inhaler 1 puff INHALATION BID RF: 0 amoxicillin-pot clavulanate 875 MG tablet 875 mg PO TID Qty: 42 RF: 0 docusate sodium 100 MG capsule 100 mg PO DAILY Qty: 20 RF: 0 docusate sodium 100 MG capsule 100 mg PO DAILY PRN PRN (Reason: Constipation) Qty: 30 RF: 0 Primary Care Provider: Mark Duval Referrals: Mark Duval MD [Primary Care Provider] -
[2021-01-05 15:38] LABS: Absolute Lymphocyte Count 1.02 X10^3/uL (0.83-4.51); Absolute Neutrophil Count 4.7 X10^3/uL (2.0-7.7); Basophil# 0.05 X10^3/uL; Basophil% 0.7 % (0-1); Eosinophil# 0.21 X10^3/uL; Eosinophils% 3.1 % (0-5); Hematocrit 30.9 % (40-54); Hemoglobin 10.1 g/dL (13.0-16.5); Lymphocyte # 1.02 X10^3/ul (0.83-4.51); Lymphocyte % 15.1 % (19-41); Mean Corp Hgb Conc 32.7 g/dL (32-36); Mean Corpuscular Hgb 29.3 pg (27.0-32.0); Mean Corpuscular Volume 89.6 fL (80-94); Mean Platelet Vol. 10.4 fl (6.2-12.0); Monocyte# 0.71 X10^3/uL; Monocyte% 10.5 % (0-10); NRBC Flagged by Analyzer 0 % (0-5); Neutrophil # 4.73 X10^3/uL (2.7-7.7); Neutrophil % 70.2 % (47-70); Platelet Count 247 K/mm3 (150-450); RBC Distribution Width CV 15.8 % (11.6-14.6); Red Blood Count 3.45 M/mm3 (4.6-6.2); White Blood Count 6.8 K/mm3 (4.4-11.0)
[2021-01-05 15:46] LABS: Partial Thromboplast Time 27.8 Seconds (24.1-36.2); Prothrombin Time (Protime)PT. 12.7 SECONDS (11.7-14.9)
[2021-01-05 15:53] LABS: Anion Gap 6 (5-15); BUN 32 mg/dL (7-18); Calcium,Total 8.9 mg/dL (8.5-10.1); Chloride 107 mmol/L (98-107); Creatinine, Serum 1.68 mg/dL (0.70-1.30); EST Glomerular Filtration Rate 42 mL/min (>60); Est Glom Filt Rate - Afr Amer 51 mL/min (>60); Estimated Creatinine Clearance 40.29 ml/min; Glucose 141 mg/dL (74-106); Sodium Level 137 mmol/L (136-145)
[2021-01-05 16:08] LABS: Lactic Acid 0.9 mmol/L (0.4-1.9)
--- NOTE | 2021-01-05 17:25 | PCM.HP.STD ---
Documented by User: SABRINA Pérez 01/05/21 17:53 HPI - General General Date of Admission: 01/05/21 HPI Narrative BRYANT MEZA, is a 80 M who presents today with reports of maroon stool. Patient states that he had a colonoscopy with Dr. Franklin approximately 10 days ago where he had 2 polyps removed. Patient states he restarted his Plavix 4 days ago. Patient states maroon stools started this morning and have been getting progressively bloody or as the day goes through. Patient reports a total of 3 stools today all of which were maroon/red. Patient denies dizziness, palpitations, abdominal pain, nausea, vomiting, diarrhea, constipation. Patient states that he is still on stool softeners following his colonoscopy and has had consistently soft stools. [facility]LY [facility] Medical History Alcohol abuse Anemia Bronchiectasis Cataracts, bilateral Chronic pain Coronary artery disease CPAP (continuous positive airway pressure) dependence Diabetes Diverticula of colon Former smoker GERD (gastroesophageal reflux disease) GI bleed History of left heart catheterization Kidney disease Non-Hodgkin lymphoma in remission Parotid adenoma Rheumatoid arthritis Sleep apnea Home Medications amlodipine 5 mg PO DAILY 03/26/19 [History Last Taken 04/02/19 06:30] atorvastatin 40 mg PO QHS 03/26/19 [History Last Taken Unknown] clopidogrel 75 mg PO DAILY 03/26/19 [History Last Taken Unknown] fluticasone propionate 2 spray NASAL DAILY 03/26/19 [History Last Taken Unknown] furosemide 20 mg PO DAILY 03/26/19 [History Last Taken Unknown] glimepiride 2 mg PO DAILY 03/26/19 [History Last Taken Unknown] hydroxychloroquine 200 mg PO BID 03/26/19 [History Last Taken Unknown] losartan 100 mg PO DAILY 03/26/19 [History Last Taken 04/02/19 06:30] metoprolol tartrate 12.5 mg PO BID 03/26/19 [History Last Taken 04/02/19 06:30] pantoprazole 40 mg PO DAILY 03/26/19 [History Last Taken 04/02/19 06:30] sitagliptin 50 mg PO DAILY 03/26/19 [History Last Taken Unknown] tamsulosin 0.4 mg PO DAILY 03/26/19 [History Last Taken Unknown] amoxicillin-pot clavulanate 875 mg PO TID #42 tab 10/03/20 [Rx Last Taken Unknown] docusate sodium 100 mg PO DAILY #20 cap 10/03/20 [Rx Last Taken Unknown] fluticasone propion-salmeterol 1 puff INHALATION BID 10/03/20 [History Last Taken Unknown] docusate sodium 100 mg PO DAILY PRN PRN #30 capsule 12/01/20 [Rx Last Taken Unknown] Allergy/AdvReac Type Severity Reaction Status Date / Time aspirin Allergy Other Verified 01/05/21 14:13 lisinopril Allergy Shortness Verified 01/05/21 14:13 of breath Surgical History History of ankle fusion History of knee replacement procedure of left knee Hx of lymph node excision Social History household members: spouse Smoking Status: Former smoker alcohol intake: current alcohol intake frequency: 0-2 drinks per day substance use type: does not use ROS Constitutional Constitutional: Denies anorexia, chills or fatigue Cardiovascular Cardiovascular: Denies chest pain, edema or palpitations Respiratory/Chest Respiratory/Chest: Denies cough, shortness of breath at rest or shortness of breath with exertion Gastrointestinal Gastrointestinal: Reports melena and other Details: Gurgling feeling in my gut ; Denies abdominal pain, constipation or diarrhea Genitourinary Genitourinary: Denies dysuria or hematuria Musculoskeletal Musculoskeletal: Denies back pain, extremity pain or joint pain Integumentary Integumentary: Denies dry skin, rash or wounds Neurologic Neurologic: Denies abnormal gait, abnormal speech, confusion or dizziness Psychiatric Psychiatric: Denies anxiety or depression Endocrine Endocrinology: Denies change in body appearance Hematologic/Lymphatic Hematologic/Lymphatic: Reports easy bleeding Vital Signs Vital Signs Vital Signs: 01/05/21 14:11 01/05/21 15:52 01/05/21 16:11 Temperature 97.4 F L Temperature Source Temporal Pulse Rate 74 81 Pulse Rate [Lying] 60 Pulse Rate [Sitting] 62 Pulse Rate [Standing] 90 Respiratory Rate 15 16 Blood Pressure 128/75 H Blood Pressure [Lying] 146/70 H Blood Pressure [Sitting] 143/73 H Blood Pressure [Standing] 131/65 H Blood Pressure Mean 92 Blood Pressure Mean [Lying] 95 Blood Pressure Mean [Sitting] 96 Blood Pressure Mean [Standing] 87 Pulse Ox 99 99 Oxygen Delivery Method Room Air Room Air 01/05/21 17:10 Temperature 98.1 F Temperature Source Temporal Pulse Rate 64 Pulse Rate [Lying] Pulse Rate [Sitting] Pulse Rate [Standing] Respiratory Rate 15 Blood Pressure 164/72 H Blood Pressure [Lying] Blood Pressure [Sitting] Blood Pressure [Standing] Blood Pressure Mean 102 Blood Pressure Mean [Lying] Blood Pressure Mean [Sitting] Blood Pressure Mean [Standing] Pulse Ox 100 Oxygen Delivery Method Room Air Weight Weight: 265 lb Body Mass Index (BMI) 34.9 Physical Exam Const alert and oriented x3 General Appearance: cooperative HEENT normocephalic and head/scalp atraumatic Eyes PERRL Neck supple, no JVD and thyroid normal General: trachea midline Lymph Lymphatic: no lymphadenopathy noted Resp normal respiratory effort, normal air movement and clear to auscultation bilaterally Cardio regular rate, regular rhythm, S1 normal heart sound and S2 normal heart sound GI normal to inspection, nondistended, normoactive bowel sounds, soft to palpation and non-tender Extremity normal capillary refill and no clubbing, cyanosis or edema Skin General Skin Exam: no breakdown and turgor normal Lesions: no lesions Rashes: no rashes Neuro CN's II-XII intact bilaterally and deep tendon reflexes 2+ bilaterally Psych thought process normal, cooperative and affect normal Appearance: appropriate Lab / Micro Data Result Diagrams: 01/05/21 15:20 01/05/21 15:20 Labs: Laboratory Results - last 24 hr 01/05/21 01/05/21 01/05/21 15:20 15:20 15:20 WBC 6.8 RBC 3.45 L Hgb 10.1 L Hct 30.9 L MCV 89.6 MCH 29.3 MCHC 32.7 RDW Std Deviation 52.0 H RDW Coeff of Christiano 15.8 H Plt Count 247 MPV 10.4 Immature Gran % (Auto) 0.400 Neut % (Auto) 70.2 H Lymph % (Auto) 15.1 L [place] % (Auto) 10.5 H Eos % (Auto) 3.1 Baso % (Auto) 0.7 Absolute Neuts (auto) 4.7 Absolute Lymphs (auto) 1.02 Nucleated RBC % 0 PT 12.7 INR 1.0 APTT 27.8 Sodium 137 Potassium 4.0 Chloride 107 Carbon Dioxide 24.0 Anion Gap 6 BUN 32 H Creatinine 1.68 H Estim Creat Clear Calc 40.29 Est GFR (MDRD) Af Amer 51 L Est GFR (MDRD) Non-Af 42 L BUN/Creatinine Ratio 19.0 Glucose 141 H Lactic Acid Calcium 8.9 Blood Type Antibody Screen 01/05/21 01/05/21 15:20 15:20 WBC RBC Hgb Hct MCV MCH MCHC RDW Std Deviation RDW Coeff of Christiano Plt Count MPV Immature Gran % (Auto) Neut % (Auto) Lymph % (Auto) [place] % (Auto) Eos % (Auto) Baso % (Auto) Absolute Neuts (auto) Absolute Lymphs (auto) Nucleated RBC % PT INR APTT Sodium Potassium Chloride Carbon Dioxide Anion Gap BUN Creatinine Estim Creat Clear Calc Est GFR (MDRD) Af Amer Est GFR (MDRD) Non-Af BUN/Creatinine Ratio Glucose Lactic Acid 0.9 Calcium Blood Type O POSITIVE Antibody Screen NEGATIVE Assessment & Plan Assessment/Plan (1) Acute lower gastrointestinal bleeding: (2) Anemia due to GI blood loss: (3) S/P colonoscopy with polypectomy: PLAN: 1. Acute lower gastrointestinal bleeding -Admit to PCU for continuous cardiac monitoring. -Clear liquid diet, no red or purple foods. -Consult Dr. Franklin, performed colonoscopy 10 days ago. -PT/OT to eval and treat. -Vital signs per protocol, trend BP and heart rate. -CBC and CMP in a.m. -Hemoglobin and hematocrit every 6 hour, trend. Currently 10.1 down from 11.23 September 2020. 2. Anemia due to GI blood loss -See above. -Orthostatic vital signs, patient currently denies dizziness. -Restarted Plavix approximately 4 days ago. 3. Status post colonoscopy with polypectomy -See above. 4. Hypertension -Hold Lasix, losartan, amlodipine due to acute blood loss. Continue metoprolol for rate control. -Vital signs per protocol, trend BP. 5. Chronic kidney disease stage IIIa -BUN and creatinine down slightly from previous value in September 2020. -CMP daily to trend. 6. Diabetes mellitus type 2 -Hold glimepiride, Januvia. -AC at bedtime blood sugars with sliding scale insulin ordered during admission. 7. Rheumatoid arthritis -Continue Plaquenil daily. 8. Coronary artery disease -Hold Plavix at this time due to bleeding. DVT prophylaxis-not indicated, current active bleed This patient was seen by SABRINA Pérez under the supervision of Dr. Goel. Documented by User: Dr. Nicky Goel MD 01/05/21 18:18 HPI - General General Date of Admission: 01/05/21 [facility] Medical History Alcohol abuse Anemia Bronchiectasis Cataracts, bilateral Chronic pain Coronary artery disease CPAP (continuous positive airway pressure) dependence Diabetes Diverticula of colon Former smoker GERD (gastroesophageal reflux disease) GI bleed History of left heart catheterization Kidney disease Non-Hodgkin lymphoma in remission Parotid adenoma Rheumatoid arthritis Sleep apnea Home Medications amlodipine 5 mg PO DAILY 03/26/19 [History Last Taken 04/02/19 06:30] atorvastatin 40 mg PO QHS 03/26/19 [History Last Taken Unknown] clopidogrel 75 mg PO DAILY 03/26/19 [History Last Taken Unknown] fluticasone propionate 2 spray NASAL DAILY 03/26/19 [History Last Taken Unknown] furosemide 20 mg PO DAILY 03/26/19 [History Last Taken Unknown] glimepiride 2 mg PO DAILY 03/26/19 [History Last Taken Unknown] hydroxychloroquine 200 mg PO BID 03/26/19 [History Last Taken Unknown] losartan 100 mg PO DAILY 03/26/19 [History Last Taken 04/02/19 06:30] metoprolol tartrate 12.5 mg PO BID 03/26/19 [History Last Taken 04/02/19 06:30] pantoprazole 40 mg PO DAILY 03/26/19 [History Last Taken 04/02/19 06:30] sitagliptin 50 mg PO DAILY 03/26/19 [History Last Taken Unknown] tamsulosin 0.4 mg PO DAILY 03/26/19 [History Last Taken Unknown] amoxicillin-pot clavulanate 875 mg PO TID #42 tab 10/03/20 [Rx Last Taken Unknown] docusate sodium 100 mg PO DAILY #20 cap 10/03/20 [Rx Last Taken Unknown] fluticasone propion-salmeterol 1 puff INHALATION BID 10/03/20 [History Last Taken Unknown] docusate sodium 100 mg PO DAILY PRN PRN #30 capsule 12/01/20 [Rx Last Taken Unknown] Allergy/AdvReac Type Severity Reaction Status Date / Time aspirin Allergy Other Verified 01/05/21 14:13 lisinopril Allergy Shortness Verified 01/05/21 14:13 of breath Surgical History History of ankle fusion History of knee replacement procedure of left knee Hx of lymph node excision Social History household members: spouse Smoking Status: Former smoker alcohol intake: current alcohol intake frequency: 0-2 drinks per day substance use type: does not use Lab / Micro Data Result Diagrams: 01/05/21 15:20 01/05/21 15:20 Addendum Addendum: This patient was seen in conjunction with Dwayne Deras NP. I have independently interviewed and examined the patient and reviewed pertinent historical, laboratory, and other data. I have reviewed her note and concur with her documentation 80-year-old with past medical history of CAD, type II DM, hypertension, hyperlipidemia who comes in with rectal bleeding noticed today. Patient had colonoscopy done 10 days ago and 2 polyps were removed. He noticed maroon-colored stools this morning. He was on his way to vacation and was driving, he had another bowel movement that was more reddish?maroon. He told his that they should turn around him come back home. On the way back, they called Dr. Franklin who advised that he go to the emergency room. Patient has had 1 more bowel movement which was still reddish dark maroon making a total of 3 bowel movement. He denied any dizziness or palpitations or chest pain. Physical Exam: Vitals: Gen: Comfortable, not pale, not jaundiced CVS:HS I +II, regular, no murmurs RESP: CTA GI: BS present and normal, soft, nontender, no palpable organs EXT:No edema Labs: Hemoglobin is 10.1, dropped from previous 11.9, normal platelets, normal WBC count Creatinine is 1.68, improved from previous 1.82 ASSESSMENT: 1. Acute GI bleed likely secondary to recent polypectomy 2. Acute blood loss anemia 3. Hypertension 4. Type II DM 5. CAD Plan: Admit to PCU, hold Plavix, trend H&H, type and screen, IV PPI twice daily Hold amlodipine, losartan, sitagliptin, glimepiride, stool softeners Continue metoprolol Continue gentle IV fluids, insulin sliding scale I discussed and explained in details the various types of CODE STATUS-full code, DNR CCA, DNR CC. Patient chose to be full code. Patient's stated that they have a DNR but patient wanted to be full code and in the event that he likely will be in a vegetative state, he wants his to make decisions. Time spent discussing CODE STATUS 17 minutes Visit Charges Inpatient E&M: 17721 Init Hosp L3 Procedures Hospitalists Procedures: 85933 Advncd Care Plan 30 Min
--- NOTE | 2021-01-05 18:14 | EX.PCM.CON.S ---
Assessment & Plan Assessment/Plan (1) Acute lower gastrointestinal bleeding: (2) Anemia due to GI blood loss: (3) S/P colonoscopy with polypectomy: PLAN: Knowing exactly where the polypectomy site is and the fact that he is on Plavix I think the best thing to do is do a bowel prep on him get to where the polypectomy was him put some clips on it. I do not think waiting is an appropriate thing to do here I think he will just rebleed when he restarts his anticoagulation. Risk benefits of the procedure been reviewed with the patient include bleeding injury to the colon could possibly need further surgery patient agrees to proceed. HPI Consult Data Date of Consult: 01/05/21 HPI Narrative HPI Narrative: BRYANT MEZA, is a 80 M who presents who presents with a lower GI bleed. Patient underwent a colonoscopy on 12/24/2020. He had a small polyp removed in his proximal transverse colon with jumbo forceps and then a 7 mm polyp removed in the distal transverse colon with hot snare. Today he started to develop some bleeding painless in nature he was on the process of going on vacation turned around and came back and presented to the emergency department. Emergency room physician did a rectal exam blood was noted to be there. He is on Plavix and aspirin. [facility]LY [facility] Medical History Alcohol abuse Anemia Bronchiectasis Cataracts, bilateral Chronic pain Coronary artery disease CPAP (continuous positive airway pressure) dependence Diabetes Diverticula of colon Former smoker GERD (gastroesophageal reflux disease) GI bleed History of left heart catheterization Kidney disease Non-Hodgkin lymphoma in remission Parotid adenoma Rheumatoid arthritis Sleep apnea Home Medications amlodipine 5 mg PO DAILY 03/26/19 [History Last Taken 04/02/19 06:30] atorvastatin 40 mg PO QHS 03/26/19 [History Last Taken Unknown] clopidogrel 75 mg PO DAILY 03/26/19 [History Last Taken Unknown] fluticasone propionate 2 spray NASAL DAILY 03/26/19 [History Last Taken Unknown] furosemide 20 mg PO DAILY 03/26/19 [History Last Taken Unknown] glimepiride 2 mg PO DAILY 03/26/19 [History Last Taken Unknown] hydroxychloroquine 200 mg PO BID 03/26/19 [History Last Taken Unknown] losartan 100 mg PO DAILY 03/26/19 [History Last Taken 04/02/19 06:30] metoprolol tartrate 12.5 mg PO BID 03/26/19 [History Last Taken 04/02/19 06:30] pantoprazole 40 mg PO DAILY 03/26/19 [History Last Taken 04/02/19 06:30] sitagliptin 50 mg PO DAILY 03/26/19 [History Last Taken Unknown] tamsulosin 0.4 mg PO DAILY 03/26/19 [History Last Taken Unknown] amoxicillin-pot clavulanate 875 mg PO TID #42 tab 10/03/20 [Rx Last Taken Unknown] docusate sodium 100 mg PO DAILY #20 cap 10/03/20 [Rx Last Taken Unknown] fluticasone propion-salmeterol 1 puff INHALATION BID 10/03/20 [History Last Taken Unknown] docusate sodium 100 mg PO DAILY PRN PRN #30 capsule 12/01/20 [Rx Last Taken Unknown] Allergy/AdvReac Type Severity Reaction Status Date / Time aspirin Allergy Other Verified 01/05/21 14:13 lisinopril Allergy Shortness Verified 01/05/21 14:13 of breath Surgical History History of ankle fusion History of knee replacement procedure of left knee Hx of lymph node excision Social History household members: spouse Smoking Status: Former smoker alcohol intake: current alcohol intake frequency: 0-2 drinks per day substance use type: does not use ROS Cardiovascular Cardiovascular: Denies chest pain, dyspnea or palpitations Respiratory/Chest Respiratory/Chest: Denies dyspnea, shortness of breath at rest or shortness of breath with exertion Gastrointestinal Gastrointestinal: Reports melena and rectal bleeding; Denies abdominal pain, nausea or vomiting Physical Exam Const alert and oriented x3 General Appearance: cooperative Eyes PERRL and EOMs intact bilaterally Resp clear to auscultation bilaterally Cardio Rate: regular rate Rhythm: regular rhythm GI soft to palpation, non-tender and non-distended Lab / Micro Data Result Diagrams: 01/05/21 15:20 01/05/21 15:20 Labs: Laboratory Results - last 24 hr 01/05/21 01/05/21 01/05/21 15:20 15:20 15:20 WBC 6.8 RBC 3.45 L Hgb 10.1 L Hct 30.9 L MCV 89.6 MCH 29.3 MCHC 32.7 RDW Std Deviation 52.0 H RDW Coeff of Christiano 15.8 H Plt Count 247 MPV 10.4 Immature Gran % (Auto) 0.400 Neut % (Auto) 70.2 H Lymph % (Auto) 15.1 L [place] % (Auto) 10.5 H Eos % (Auto) 3.1 Baso % (Auto) 0.7 Absolute Neuts (auto) 4.7 Absolute Lymphs (auto) 1.02 Nucleated RBC % 0 PT 12.7 INR 1.0 APTT 27.8 Sodium 137 Potassium 4.0 Chloride 107 Carbon Dioxide 24.0 Anion Gap 6 BUN 32 H Creatinine 1.68 H Estim Creat Clear Calc 40.29 Est GFR (MDRD) Af Amer 51 L Est GFR (MDRD) Non-Af 42 L BUN/Creatinine Ratio 19.0 Glucose 141 H Lactic Acid Calcium 8.9 Blood Type Antibody Screen 01/05/21 01/05/21 15:20 15:20 WBC RBC Hgb Hct MCV MCH MCHC RDW Std Deviation RDW Coeff of Christiano Plt Count MPV Immature Gran % (Auto) Neut % (Auto) Lymph % (Auto) [place] % (Auto) Eos % (Auto) Baso % (Auto) Absolute Neuts (auto) Absolute Lymphs (auto) Nucleated RBC % PT INR APTT Sodium Potassium Chloride Carbon Dioxide Anion Gap BUN Creatinine Estim Creat Clear Calc Est GFR (MDRD) Af Amer Est GFR (MDRD) Non-Af BUN/Creatinine Ratio Glucose Lactic Acid 0.9 Calcium Blood Type O POSITIVE Antibody Screen NEGATIVE
[2021-01-05] MEDS: Electrolyte Solution/Peg's 4000 ML PO (18:30)
[2021-01-05] MEDS: 0.9% Normal Saline 1,000 ML 100 ML IV (18:47)
[2021-01-05 18:55] LABS: Hemoglobin 9.3 g/dL (13.0-16.5)
[2021-01-05] MEDS: Albuterol 2.5 MG/3 ML VIAL.NEB. INHALATION (19:59)
[2021-01-05] MEDS: Budesonide Respules 0.5 MG/2 ML AMPUL.NEB. INHALATION (19:59)
[2021-01-05] MEDS: Metoprolol Tartrate 25 MG Tablet 12.5 MG PO (21:59)
[2021-01-05] MEDS: Hydroxychloroquine 200 MG Tablet PO (21:59)
[2021-01-05] MEDS: Atorvastatin Calcium 40 MG Tablet PO (21:59)
[2021-01-05 22:16] LABS: Bedside Glucose 141 mg/dL (70-110)
[2021-01-06] VITALS (23 sets, daily range): BP systolic 126–152; BP diastolic 54–72; PULSE 64–97; RESP 14–18; TEMP 36.4–37.1; O2SAT 92–99
[2021-01-06 00:42] LABS: Hematocrit 25.3 % (40-54); Hemoglobin 8.3 g/dL (13.0-16.5)
--- NOTE | 2021-01-06 05:55 | EKG12_ITS ---
Test Reason : AM EKG Blood Pressure : / mmHG Vent. Rate : 064 BPM Atrial Rate : 064 BPM P-R Int : 188 ms QRS Dur : 142 ms QT Int : 450 ms P-R-T Axes : 038 008 002 degrees QTc Int : 464 ms Sinus rhythm with marked sinus arrhythmia Right bundle branch block Abnormal ECG Confirmed by SHAILESH LEBRON, ISMAEL ([id number]), non linear editor PARISA PEREZ ([id number]) on 01/07/2021 9:47:37 AM Referred By: DR HINES Confirmed By:ISMAEL CASH MD
[2021-01-06 06:35] LABS: Bedside Glucose 145 mg/dL (70-110)
[2021-01-06 06:51] LABS: Absolute Lymphocyte Count 1.12 X10^3/uL (0.83-4.51); Absolute Neutrophil Count 4.1 X10^3/uL (2.0-7.7); Basophil# 0.04 X10^3/uL; Basophil% 0.6 % (0-1); Eosinophil# 0.21 X10^3/uL; Eosinophils% 3.4 % (0-5); Hematocrit 24.6 % (40-54); Hemoglobin 8.1 g/dL (13.0-16.5); Lymphocyte # 1.12 X10^3/ul (0.83-4.51); Lymphocyte % 18.2 % (19-41); Mean Corp Hgb Conc 32.9 g/dL (32-36); Mean Corpuscular Volume 88.2 fL (80-94); Mean Platelet Vol. 10.8 fl (6.2-12.0); Monocyte# 0.66 X10^3/uL; Monocyte% 10.7 % (0-10); NRBC Flagged by Analyzer 0 % (0-5); Neutrophil % 66.6 % (47-70); Platelet Count 199 K/mm3 (150-450); RBC Distribution Width CV 15.6 % (11.6-14.6); RBC Distribution Width SD 50.6 fl (35.1-43.9); Red Blood Count 2.79 M/mm3 (4.6-6.2); White Blood Count 6.2 K/mm3 (4.4-11.0)
[2021-01-06 07:20] LABS: AST(SGOT) 21 U/L (15-37); Alanine Aminotransfer ALT/SGPT 20 U/L (16-61); Albumin, Serum 2.8 g/dL (3.2-5.0); Alkaline Phosphatase 55 U/L (45-117); Anion Gap 8 (5-15); BUN 27 mg/dL (7-18); BUN/Creat Ratio 18.5 RATIO (10-20); Calcium,Total 7.9 mg/dL (8.5-10.1); Chloride 109 mmol/L (98-107); Creatinine, Serum 1.46 mg/dL (0.70-1.30); EST Glomerular Filtration Rate 49 mL/min (>60); Est Glom Filt Rate - Afr Amer 60 mL/min (>60); Estimated Creatinine Clearance 46.37 ml/min; Globulin 2.9 g/dL (2.2-4.2); Glucose 154 mg/dL (74-106); Potassium 3.9 mmol/L (3.5-5.1); Protein, Total 5.7 g/dL (6.4-8.2); Sodium Level 140 mmol/L (136-145)
[2021-01-06] MEDS: Albuterol 2.5 MG/3 ML VIAL.NEB. INHALATION ×2 (07:31→19:13)
[2021-01-06] MEDS: Budesonide Respules 0.5 MG/2 ML AMPUL.NEB. INHALATION ×2 (07:31→19:13)
[2021-01-06] MEDS: 0.9% Normal Saline 1,000 ML 100 ML IV ×2 (08:26→17:16)
--- NOTE | 2021-01-06 11:17 | OP.COLON_ITS ---
Patient Name: Stephon Howell Procedure Date: 01/06/2021 10:22 AM Date of : 1940 Age: 80 Procedure: Colonoscopy Indications: Treatment of bleeding from polypectomy site Providers: Sherif Franklin MD Medicines: See the Anesthesia note for documentation of the administered medications Patient Profile: This is a 80 year old male. Refer to note in patient chart for documentation of history and physical. Last Colonoscopy: 1 week ago. Complications: No immediate complications. Procedure: Pre-Anesthesia Assessment: - Prior to the procedure, a History and Physical was performed, and patient medications and allergies were reviewed. The patient's tolerance of previous anesthesia was also reviewed. The risks and benefits of the procedure and the sedation options and risks were discussed with the patient. All questions were answered, and informed consent was obtained. Prior Anticoagulants: The patient has taken Plavix (clopidogrel), last dose was 2 days prior to procedure. ASA Grade Assessment: III - A patient with severe systemic disease. After reviewing the risks and benefits, the patient was deemed in satisfactory condition to undergo the procedure. After I obtained informed consent, the scope was passed under direct vision. Throughout the procedure, the patient's blood pressure, pulse, and oxygen saturations were monitored continuously. The adult colonoscope was introduced through the anus and advanced to the transverse colon to examine a polypectomy site. This was the intended extent. The colonoscopy was performed without difficulty. The patient tolerated the procedure well. The quality of the bowel preparation was adequate. Scope In: 10:48:28 AM Scope Out: 11:10:54 AM Total Procedure Duration Time 0 hours 22 minutes 26 seconds Findings: Active bleeding was seen in the distal transverse colon, secondary to previous polypectomy procedure. To prevent bleeding after the polypectomy, four hemostatic clips were successfully placed. There was no bleeding at the end of the procedure. Area was successfully injected with 4 mL of a 1:10,000 solution of epinephrine for hemostasis. Impression: - Bleeding in the distal transverse colon secondary to previous polypectomy. Clips were placed. Injected. - No specimens collected. Recommendation: - Return patient to hospital [facility] for ongoing care. - Clear liquid diet. - Continue present medications. - Repeat colonoscopy in 5 years for surveillance. - Return to my office in 1 week. Procedure Code(s): --- Professional --- 39289, 52, Colonoscopy, flexible; with control of bleeding, any method Diagnosis Code(s): --- Professional --- K91.840, Postprocedural hemorrhage of a digestive system organ or structure following a digestive system procedure CPT copyright 2017 [employer]. All rights reserved. The codes documented in this report are preliminary and upon panel machine operator review may be revised to meet current compliance requirements. MD Sherif Fine MD 01/06/2021 11:17:04 AM This report has been signed electronically. Number of Addenda: 0 Note Initiated On: 01/06/2021 10:22 AM
--- NOTE | 2021-01-06 11:17 | RAD_ITS ---
STUDY: X-RAY - ABDOMEN/PELVIS REASON FOR EXAM: Male, 80 years old. Clip placement in colon TECHNIQUE: Single AP view of the abdomen / pelvis. COMPARISON: None. FINDINGS: Gaseous distention of the stomach due to recent colonoscopy. Metallic clips are seen in the left lower quadrant. This most likely is within the sigmoid colon. Normal soft tissue structures. Normal visualized osseous structures. RAD/Abdomen Single View (Portable) IMPRESSION: Metallic clips are seen in the left lower quadrant most likely within the sigmoid colon. Electronically Signed: Ej Fields MD at 15:08 EDT , Service support ,
--- NOTE | 2021-01-06 11:17 | OP.CCLET_ITS ---
01/06/2021 Mark Duval Re : Colonoscopy procedure for Stephon Howlel Dear Simin This procedure was performed on Wednesday, January 06, 2021. My impressions and recommendations are as follows: Impressions : - Bleeding in the distal transverse colon secondary to previous polypectomy. Clips were placed. Injected. - No specimens collected. Recommendations : - Return patient to hospital [facility] for ongoing care. - Clear liquid diet. - Continue present medications. - Repeat colonoscopy in 5 years for surveillance. - Return to my office in 1 week. My findings are described in the full procedure note, which is enclosed. If I can be of further assistance, please feel free to contact me at Doctor phone number(s): , Fax: [phone], Work: . Sincerely, MD Sherif Fine MD 01/06/2021 11:17:04 AM This report has been signed electronically.
--- NOTE | 2021-01-06 11:38 | CASEMGMT ---
This RN CM to room to complete CM assessment and pt is out of the dept for testing. S[place]en RN CM
[2021-01-06] MEDS: Tamsulosin HCl 0.4 MG Capsule PO (12:33)
[2021-01-06] MEDS: Metoprolol Tartrate 25 MG Tablet 12.5 MG PO ×2 (12:35→21:24)
[2021-01-06] MEDS: Hydroxychloroquine 200 MG Tablet PO ×2 (12:36→21:24)
[2021-01-06] MEDS: Fluticasone 0.05% 1 SPRAY NASAL.SRY 2 SPRAY NASAL (12:36)
[2021-01-06 13:01] LABS: Bedside Glucose 188 mg/dL (70-110)
--- NOTE | 2021-01-06 13:50 | CASEMGMT ---
JARRET OROZCO assessment: Face to Face with patient for initial transition planning/care coordination assessment. JARRET OROZCO introduced self and role at [facility], pt voices understanding and consents to assessment. Pt is sitting up in bed in no distress. Pt is A/Ox4 and answers all questions appropriately. Care providers, pharmacy, and demographics verified. Presentation: Pt with 3 bloody bowel movements Admitting dx: Acute GI bleed PCP: Simin Specialists: Flip, pod; Francheska, cardio; Masci, onc; [place], surg; valve mechanic Preferred Pharmacy: [facility] Insurance: Secure-24 A/B, [employer] Prescription Benefit: MCR D/[facility] Living Will/HPOA: Pt unsure if has a LW/HPOA but does state that he has a will. LNOK: Leandra Howell, Living Arrangements: Pt lives with in apartment with basement and states no concerns at home. Pt is independent with ADL's. Transportation: Pt states drives self and states no transportation concerns. DME/HHC: Pt states has a cpap thru [facility] and states no need for any further DME. Pt states has had HHC in the past but has not been to SNF. Pt states no concerns with going home at time of discharge. Pt is retired. Pt states does not smoke cigarettes but does drink ETOH daily, about 3-4/day. Pt states no further concerns/needs. CM to follow for any further discharge planning/needs. Advised pt to ask for CM if any further questions/concerns/needs arise, voices understanding. Pt Goal: Home Plan: [place] JARRET OROZCO
--- NOTE | 2021-01-06 14:20 | PN.HOSP_ITS ---
Documented by User: Sandy Givens NP, FERMENTOLOGIST-C 01/06/21 14:28 Subjective Subjective Patient seen and examined. Returned from colonoscopy where he underwent clip placement of previous polypectomy. Denies current symptoms or complaints. States he feels tired from getting little sleep overnight. Objective Data Objective Data Vital Signs: Vital Signs Temp Pulse Resp BP Pulse Ox 97.8 F 77 14 148/66 H 94 01/06/21 12:21 01/06/21 12:35 01/06/21 12:21 01/06/21 12:35 01/06/21 12:21 Oxygen Delivery Method Room Air Weight: 262 lb 11.21 oz Body Mass Index (BMI) 34.6 Orthostatic Vital Signs Start: 01/06/21 06:18 Freq: q24h Status: Active Protocol: Activity Type Activity Date Activity User E-Sign Co-Sign Detail Recorded Client Recorded Date Recorded By Document 01/06/21 06:18 AB [id number] 01/06/21 06:23 AB 01/06/21 06:18 Orthostatic Vitals Standing -Blood Pressure (90/60-120/80) 132/61 H -Extremity Use Left Arm -Pulse Rate (60-100) 86 Sitting -Blood Pressure (90/60-120/80) 139/54 H -Extremity Use Left Arm -Pulse Rate (60-100) 78 Lying -Blood Pressure (90/60-120/80) 132/54 H -Extremity Use Left Arm -Pulse Rate (60-100) 72 Intake & Output: Intake and Output for Last 24 Hours 01/04/21 01/05/21 01/06/21 23:59 23:59 23:59 Intake Total 2350 / 2350 2350.00 / 2350.00 Output Total 3 / 3 5 / 5 Balance 2347 / 2347 2345.00 / 2345.00 Lab / Micro Data Result Diagrams: 01/06/21 06:10 01/06/21 06:10 Labs: Laboratory Results - last 24 hr 01/05/21 01/05/21 01/05/21 15:20 15:20 15:20 WBC 6.8 RBC 3.45 L Hgb 10.1 L Hct 30.9 L MCV 89.6 MCH 29.3 MCHC 32.7 RDW Std Deviation 52.0 H RDW Coeff of Christiano 15.8 H Plt Count 247 MPV 10.4 Immature Gran % (Auto) 0.400 Neut % (Auto) 70.2 H Lymph % (Auto) 15.1 L [place] % (Auto) 10.5 H Eos % (Auto) 3.1 Baso % (Auto) 0.7 Absolute Neuts (auto) 4.7 Absolute Lymphs (auto) 1.02 Nucleated RBC % 0 PT 12.7 INR 1.0 APTT 27.8 Sodium 137 Potassium 4.0 Chloride 107 Carbon Dioxide 24.0 Anion Gap 6 BUN 32 H Creatinine 1.68 H Estim Creat Clear Calc 40.29 Est GFR (MDRD) Af Amer 51 L Est GFR (MDRD) Non-Af 42 L BUN/Creatinine Ratio 19.0 Glucose 141 H Lactic Acid Calcium 8.9 Total Bilirubin AST ALT Alkaline Phosphatase Total Protein Albumin Globulin Albumin/Globulin Ratio POC Glucose Blood Type Antibody Screen Crossmatch 01/05/21 01/05/21 01/05/21 15:20 15:20 15:20 WBC RBC Hgb Hct MCV MCH MCHC RDW Std Deviation RDW Coeff of Christiano Plt Count MPV Immature Gran % (Auto) Neut % (Auto) Lymph % (Auto) [place] % (Auto) Eos % (Auto) Baso % (Auto) Absolute Neuts (auto) Absolute Lymphs (auto) Nucleated RBC % PT INR APTT Sodium Potassium Chloride Carbon Dioxide Anion Gap BUN Creatinine Estim Creat Clear Calc Est GFR (MDRD) Af Amer Est GFR (MDRD) Non-Af BUN/Creatinine Ratio Glucose Lactic Acid 0.9 Calcium Total Bilirubin AST ALT Alkaline Phosphatase Total Protein Albumin Globulin Albumin/Globulin Ratio POC Glucose Blood Type O POSITIVE Antibody Screen NEGATIVE Crossmatch See Detail 01/05/21 01/05/21 01/06/21 18:45 21:56 00:25 WBC RBC Hgb 9.3 L 8.3 L Hct 29.0 L 25.3 L MCV MCH MCHC RDW Std Deviation RDW Coeff of Christiano Plt Count MPV Immature Gran % (Auto) Neut % (Auto) Lymph % (Auto) [place] % (Auto) Eos % (Auto) Baso % (Auto) Absolute Neuts (auto) Absolute Lymphs (auto) Nucleated RBC % PT INR APTT Sodium Potassium Chloride Carbon Dioxide Anion Gap BUN Creatinine Estim Creat Clear Calc Est GFR (MDRD) Af Amer Est GFR (MDRD) Non-Af BUN/Creatinine Ratio Glucose Lactic Acid Calcium Total Bilirubin AST ALT Alkaline Phosphatase Total Protein Albumin Globulin Albumin/Globulin Ratio POC Glucose 141 H Blood Type Antibody Screen Crossmatch 01/06/21 01/06/21 01/06/21 06:10 06:10 06:26 WBC 6.2 RBC 2.79 L Hgb 8.1 L Hct 24.6 L MCV 88.2 MCH 29.0 MCHC 32.9 RDW Std Deviation 50.6 H RDW Coeff of Christiano 15.6 H Plt Count 199 MPV 10.8 Immature Gran % (Auto) 0.500 Neut % (Auto) 66.6 Lymph % (Auto) 18.2 L [place] % (Auto) 10.7 H Eos % (Auto) 3.4 Baso % (Auto) 0.6 Absolute Neuts (auto) 4.1 Absolute Lymphs (auto) 1.12 Nucleated RBC % 0 PT INR APTT Sodium 140 Potassium 3.9 Chloride 109 H Carbon Dioxide 23.0 Anion Gap 8 BUN 27 H Creatinine 1.46 H Estim Creat Clear Calc 46.37 Est GFR (MDRD) Af Amer 60 Est GFR (MDRD) Non-Af 49 L BUN/Creatinine Ratio 18.5 Glucose 154 H Lactic Acid Calcium 7.9 L Total Bilirubin 0.40 AST 21 ALT 20 Alkaline Phosphatase 55 Total Protein 5.7 L Albumin 2.8 L Globulin 2.9 Albumin/Globulin Ratio 1.0 POC Glucose 145 H Blood Type Antibody Screen Crossmatch 01/06/21 12:51 WBC RBC Hgb Hct MCV MCH MCHC RDW Std Deviation RDW Coeff of Christiano Plt Count MPV Immature Gran % (Auto) Neut % (Auto) Lymph % (Auto) [place] % (Auto) Eos % (Auto) Baso % (Auto) Absolute Neuts (auto) Absolute Lymphs (auto) Nucleated RBC % PT INR APTT Sodium Potassium Chloride Carbon Dioxide Anion Gap BUN Creatinine Estim Creat Clear Calc Est GFR (MDRD) Af Amer Est GFR (MDRD) Non-Af BUN/Creatinine Ratio Glucose Lactic Acid Calcium Total Bilirubin AST ALT Alkaline Phosphatase Total Protein Albumin Globulin Albumin/Globulin Ratio POC Glucose 188 H Blood Type Antibody Screen Crossmatch Physical Exam Const alert, oriented x3 and no apparent distress Orientation / Consciousness: awake, oriented to person, oriented to place and oriented to time HEENT normocephalic and moist oral mucous membranes Eyes PERRL, EOMs intact bilaterally and conjunctivae normal Neck no lymphadenopathy Resp normal respiratory effort and clear to auscultation bilaterally Cardio regular rate, regular rhythm and no murmurs Peripheral Pulses: pulses 2+ throughout GI normal to inspection, nondistended, normoactive bowel sounds, non-tender and non-distended Extremity normal to inspection Skin no rashes or lesions noted Lesions: no lesions Rashes: no rashes Trauma: no lacerations or abrasions Neuro CN's II-XII intact bilaterally, no focal motor deficits, no sensory deficits noted and deep tendon reflexes 2+ bilaterally Psych mental status grossly normal and affect normal Assessment & Plan Assessment/Plan (1) Acute lower gastrointestinal bleeding: (2) Anemia due to GI blood loss: PLAN: 1. Acute blood loss anemia secondary to lower GI bleed related to recent colonoscopy with polypectomy-Dr. Franklin consulted. Underwent colonoscopy with clip placement and injection. Trend H&H. Repeat CBC in a.m. On PPI. 2. Hypertension-stable, continue current regimen with hold parameters. 3. Chronic kidney disease stage IIIa-at baseline. 4. Type 2 diabetes mellitus-oral regimen on hold. Accu-Cheks with sliding scale insulin. 5. Rheumatoid arthritis-on hydroxychloroquine. 6. CAD-Plavix on hold. Continue statin, metoprolol. DVT prophylaxis-SCDs This patient was seen by SABRINA Jama under the supervision of Dr. Nesbitt. Documented by User: Dr. Marcia Nesbitt DO 01/06/21 15:48 Subjective Subjective I agree with the above and the following is a representation of my independent history and physical examination Patient reports that he is feeling well. He reports that Dr. Franklin did his colonoscopy and told him that a clip was placed and epinephrine was injected which resulted in cessation of bleeding at the polypectomy site. He is on a clear liquid diet tolerating this without any issues. Objective Data Lab / Micro Data Result Diagrams: 01/06/21 06:10 01/06/21 06:10 Physical Exam Const alert, oriented x3 and no apparent distress Constitutional Narrative: Obese older white male sitting up in bed reading a book Exam Limitations: no limitations HEENT head/scalp atraumatic Head and Scalp: normocephalic Resp normal respiratory effort, no retractions, no use of accessory muscles and clear to auscultation bilaterally Cardio regular rate, regular rhythm, S1 normal heart sound, S2 normal heart sound, no rub, no gallops, no clicks and no JVD Cardio Narrative: 3 out of 6 systolic murmur radiates to bilateral carotids GI normal to inspection, nondistended, normoactive bowel sounds, soft to palpation, non-tender and non-distended Extremity normal to inspection and no clubbing, cyanosis or edema Peripheral Pulses: Yes pulses 2+ throughout Neuro oriented x3, moves all extremities and no focal motor deficits Sensorium / Orientation: awake, alert, oriented to person, oriented to place and oriented to time Speech: speech normal Visit Charges Inpatient E&M: 22699 Subs Hosp L2
--- NOTE | 2021-01-06 15:10 | CASEMGMT ---
[facility] palliative screening tool completed and pt does not qualify for referral at this time. SStchelsea RN CM
[2021-01-06 17:26] LABS: Bedside Glucose 116 mg/dL (70-110)
[2021-01-06 19:08] LABS: Hemoglobin 8.1 g/dL (13.0-16.5)
[2021-01-06] MEDS: Atorvastatin Calcium 40 MG Tablet PO (21:25)
[2021-01-06 22:20] LABS: Bedside Glucose 130 mg/dL (70-110)
[2021-01-07] VITALS (10 sets, daily range): BP systolic 105–156; BP diastolic 64–74; PULSE 64–86; RESP 16–18; TEMP 36.4–36.9; O2SAT 94–99
[2021-01-07] MEDS: 0.9% Normal Saline 1,000 ML 100 ML IV (01:57)
[2021-01-07 06:50] LABS: Bedside Glucose 132 mg/dL (70-110)
[2021-01-07 07:02] LABS: Absolute Lymphocyte Count 1.07 X10^3/uL (0.83-4.51); Absolute Neutrophil Count 3.6 X10^3/uL (2.0-7.7); Basophil# 0.05 X10^3/uL; Basophil% 0.9 % (0-1); Eosinophil# 0.25 X10^3/uL; Eosinophils% 4.4 % (0-5); Hematocrit 23.1 % (40-54); Hemoglobin 7.5 g/dL (13.0-16.5); Lymphocyte # 1.07 X10^3/ul (0.83-4.51); Mean Corp Hgb Conc 32.5 g/dL (32-36); Mean Corpuscular Hgb 29.3 pg (27.0-32.0); Mean Corpuscular Volume 90.2 fL (80-94); Mean Platelet Vol. 10.7 fl (6.2-12.0); Monocyte% 10.6 % (0-10); NRBC Flagged by Analyzer 0 % (0-5); Neutrophil # 3.64 X10^3/uL (2.7-7.7); Neutrophil % 64.6 % (47-70); Platelet Count 178 K/mm3 (150-450); RBC Distribution Width CV 15.8 % (11.6-14.6); RBC Distribution Width SD 52.2 fl (35.1-43.9); Red Blood Count 2.56 M/mm3 (4.6-6.2); White Blood Count 5.6 K/mm3 (4.4-11.0)
[2021-01-07] MEDS: Albuterol 2.5 MG/3 ML VIAL.NEB. INHALATION (07:16)
[2021-01-07] MEDS: Budesonide Respules 0.5 MG/2 ML AMPUL.NEB. INHALATION (07:17)
[2021-01-07 07:37] LABS: Anion Gap 5 (5-15); BUN 15 mg/dL (7-18); BUN/Creat Ratio 10.9 RATIO (10-20); Chloride 114 mmol/L (98-107); Creatinine, Serum 1.37 mg/dL (0.70-1.30); EST Glomerular Filtration Rate 53 mL/min (>60); Est Glom Filt Rate - Afr Amer 64 mL/min (>60); Estimated Creatinine Clearance 49.41 ml/min; Glucose 144 mg/dL (74-106); Potassium 3.8 mmol/L (3.5-5.1); Sodium Level 141 mmol/L (136-145)
[2021-01-07] MEDS: Tamsulosin HCl 0.4 MG Capsule PO (09:11)
[2021-01-07] MEDS: Hydroxychloroquine 200 MG Tablet PO (09:11)
--- NOTE | 2021-01-07 11:46 | DCINST_ITS ---
Discharge Instructions Diet Discharge Diet: Light diet - advance as tolerated Activity Discharge Activity: Return to Normal Activity Dressing / Incision Call your doctor if you observe: Shortness of breath, Dizziness, Chest pain and - (Blood in stool) Follow Up Care Test Results: Test results from this visit will be discussed in further detail at your follow-up appointment, if applicable. Discharge Plan Admission Admit Date/Time: 01/05/21 17:07 Primary Reason for Your Visit: Anemia, lower GI bleed Attending Provider: Marcia Nesbitt Primary Care Provider: Mark Duval Consulting Providers: Sherfi Franklin Discharge Orders/Prescriptions Prescriptions: Continued atorvastatin 40 MG tablet 40 mg PO QHS RF: 0 clopidogrel 75 MG tablet 75 mg PO DAILY RF: 0 amlodipine 5 MG tablet 5 mg PO QHS RF: 0 glimepiride 2 MG tablet 2 mg PO DAILY RF: 0 tamsulosin 0.4 MG capsule 0.4 mg PO DAILY RF: 0 furosemide 20 MG tablet 20 mg PO DAILY RF: 0 hydroxychloroquine 200 MG tablet 200 mg PO BID RF: 0 losartan 100 MG tablet 100 mg PO DAILY RF: 0 fluticasone propionate 1 SPRAY spray,suspension 2 spray NASAL DAILY RF: 0 metoprolol tartrate 25 MG tablet 12.5 mg PO BID RF: 0 pantoprazole 40 MG tablet,delayed release (DR/EC) 40 mg PO DAILY RF: 0 sitagliptin 50 MG tablet 50 mg PO DAILY RF: 0 fluticasone propion-salmeterol 1 PUFF inhaler 1 puff INHALATION BID RF: 0 docusate sodium 100 MG capsule 100 mg PO DAILY Qty: 20 RF: 0 docusate sodium 100 MG capsule 100 mg PO DAILY PRN PRN (Reason: Constipation) Qty: 30 RF: 0 Referrals / Follow Up: Sherif Franklin MD [STAFF PHYSICIAN] - In 1 Week Mark Duval MD [Primary Care Provider] - 01/14/21 12:55 pm (Everything will be in MyChart. Please still wear a mask. Appointment will be at the [place] office. ) Disposition Disposition (needs filled in before D/C Order can be placed): Home, self care
--- NOTE | 2021-01-07 12:14 | DS.PCM_ITS ---
Documented by User: Sandy Givens NP, RADIO INTERFERENCE INVESTIGATOR-C 01/07/21 12:17 Providers Date of Admission: 01/05/21 Date of Discharge: 01/07/21 Primary Care Physician: Dr. Mark Duval MD Consultations 01/05/21 15:36 Consult: General Surgery Routine Consulting Provider: Sherif Franklin Reason for Consult: GI bleed status post polypectomy EMERGENT Consult: No MD Notified: Yes Date Notified:: 01/05/21 Time Notified: 15:01 Method of Notification: Verbal Reason For Visit: ACUTE GI BLEED Diagnosis Discharge Diagnosis (1) Acute lower gastrointestinal bleeding: Status: Acute Code(s): K92.2 - Gastrointestinal hemorrhage, unspecified (2) Anemia due to GI blood loss: Status: Acute Code(s): D50.0 - Iron deficiency anemia secondary to blood loss (chronic) Medications at Discharge Home Medications amlodipine 5 mg PO QHS 03/26/19 atorvastatin 40 mg PO QHS 03/26/19 clopidogrel 75 mg PO DAILY 03/26/19 fluticasone propionate 2 spray NASAL DAILY 03/26/19 furosemide 20 mg PO DAILY 03/26/19 glimepiride 2 mg PO DAILY 03/26/19 hydroxychloroquine 200 mg PO BID 03/26/19 losartan 100 mg PO DAILY 03/26/19 metoprolol tartrate 12.5 mg PO BID 03/26/19 pantoprazole 40 mg PO DAILY 03/26/19 sitagliptin 50 mg PO DAILY 03/26/19 tamsulosin 0.4 mg PO DAILY 03/26/19 docusate sodium 100 mg PO DAILY #20 cap 10/03/20 fluticasone propion-salmeterol 1 puff INHALATION BID 10/03/20 docusate sodium 100 mg PO DAILY PRN PRN #30 capsule 12/01/20 Hospital Course Operations None Procedures Colonoscopy Summary of Care Provided Minutes Spent on Discharge: 35 Hospital Course: Patient is a 80-year-old male admitted 01/05/2021 due to blood in stool. 1. Acute blood loss anemia secondary to lower GI bleed related to recent colonoscopy with polypectomy-Dr. Franklin consulted during admission. Underwent colonoscopy with clip placement and injection 01/06/2021. On PPI. Status post 2 units PRBC during admission. No recurrent blood in stool. Advance diet as tolerated. Call Dr. Franklin for outpatient follow-up. Recommend repeat CBC in 3 to 5 days which can be arranged by PCP or general surgery. 2. Hypertension-stable, continue current regimen. 3. Chronic kidney disease stage IIIa-at baseline. 4. Type 2 diabetes mellitus-continue home regimen. 5. Rheumatoid arthritis-on hydroxychloroquine. 6. CAD-Plavix on hold. Continue statin, metoprolol. Physical Exam Const alert, oriented x3 and no apparent distress Orientation / Consciousness: awake, oriented to person, oriented to place and oriented to time HEENT normocephalic and moist oral mucous membranes Eyes PERRL, EOMs intact bilaterally and conjunctivae normal Neck no lymphadenopathy Resp normal respiratory effort and clear to auscultation bilaterally Cardio regular rate, regular rhythm and no murmurs Peripheral Pulses: pulses 2+ throughout GI normal to inspection, nondistended, normoactive bowel sounds, non-tender and non-distended Extremity normal to inspection Skin no rashes or lesions noted Lesions: no lesions Rashes: no rashes Trauma: no lacerations or abrasions Neuro CN's II-XII intact bilaterally, no focal motor deficits, no sensory deficits noted and deep tendon reflexes 2+ bilaterally Psych mental status grossly normal and affect normal Patient seen and examined prior to discharge. Physical assessment as noted above. Patient is stable for discharge with follow up recommendations as noted above. This patient was seen by SABRINA Jama under the supervision of Dr. Nesbitt. ABG / Lab / Microbiology Data Result Diagrams: 01/07/21 06:35 01/07/21 06:35 Laboratory: Laboratory Results - last 24 hr 01/05/21 01/06/21 01/06/21 15:20 12:51 17:14 WBC RBC Hgb Hct MCV MCH MCHC RDW Std Deviation RDW Coeff of Christiano Plt Count MPV Immature Gran % (Auto) Neut % (Auto) Lymph % (Auto) Childress % (Auto) Eos % (Auto) Baso % (Auto) Absolute Neuts (auto) Absolute Lymphs (auto) Nucleated RBC % Sodium Potassium Chloride Carbon Dioxide Anion Gap BUN Creatinine Estim Creat Clear Calc Est GFR (MDRD) Af Amer Est GFR (MDRD) Non-Af BUN/Creatinine Ratio Glucose Calcium POC Glucose 188 H 116 H Crossmatch See Detail 01/06/21 01/06/21 01/07/21 18:50 21:22 06:12 WBC RBC Hgb 8.1 L Hct 25.0 L MCV MCH MCHC RDW Std Deviation RDW Coeff of Christiano Plt Count MPV Immature Gran % (Auto) Neut % (Auto) Lymph % (Auto) Childress % (Auto) Eos % (Auto) Baso % (Auto) Absolute Neuts (auto) Absolute Lymphs (auto) Nucleated RBC % Sodium Potassium Chloride Carbon Dioxide Anion Gap BUN Creatinine Estim Creat Clear Calc Est GFR (MDRD) Af Amer Est GFR (MDRD) Non-Af BUN/Creatinine Ratio Glucose Calcium POC Glucose 130 H 132 H Crossmatch 01/07/21 01/07/21 06:35 06:35 WBC 5.6 RBC 2.56 L Hgb 7.5 L Hct 23.1 L MCV 90.2 MCH 29.3 MCHC 32.5 RDW Std Deviation 52.2 H RDW Coeff of Christiano 15.8 H Plt Count 178 MPV 10.7 Immature Gran % (Auto) 0.500 Neut % (Auto) 64.6 Lymph % (Auto) 19.0 Childress % (Auto) 10.6 H Eos % (Auto) 4.4 Baso % (Auto) 0.9 Absolute Neuts (auto) 3.6 Absolute Lymphs (auto) 1.07 Nucleated RBC % 0 Sodium 141 Potassium 3.8 Chloride 114 H Carbon Dioxide 22.0 Anion Gap 5 BUN 15 Creatinine 1.37 H Estim Creat Clear Calc 49.41 Est GFR (MDRD) Af Amer 64 Est GFR (MDRD) Non-Af 53 L BUN/Creatinine Ratio 10.9 Glucose 144 H Calcium 8.0 L POC Glucose Crossmatch Radiography Diagnostic Testing: Radiology Impression KUB X-Ray 01/06/21 11:17 IMPRESSION: Metallic clips are seen in the left lower quadrant most likely within the sigmoid colon. Electronically Signed: Ej Fields MD at 15:08 EDT , Service support , D/C Instructions Discharge Diet: Light diet - advance as tolerated Discharge Activity: Return to Normal Activity Call your doctor if you observe: Shortness of breath, Dizziness, Chest pain and - (Blood in stool) Meaningful Use Info Meaningful Use Diagnoses (Choose all that apply): None applicable Discharge Plan Admission Admit Date/Time: 01/05/21 17:07 Primary Reason for Your Visit: Anemia, lower GI bleed Attending Provider: Marcia Nesbitt Primary Care Provider: Mark Duval Consulting Providers: Sherif Franklin Discharge Orders/Prescriptions Prescriptions: Continued atorvastatin 40 MG tablet 40 mg PO QHS RF: 0 clopidogrel 75 MG tablet 75 mg PO DAILY RF: 0 amlodipine 5 MG tablet 5 mg PO QHS RF: 0 glimepiride 2 MG tablet 2 mg PO DAILY RF: 0 tamsulosin 0.4 MG capsule 0.4 mg PO DAILY RF: 0 furosemide 20 MG tablet 20 mg PO DAILY RF: 0 hydroxychloroquine 200 MG tablet 200 mg PO BID RF: 0 losartan 100 MG tablet 100 mg PO DAILY RF: 0 fluticasone propionate 1 SPRAY spray,suspension 2 spray NASAL DAILY RF: 0 metoprolol tartrate 25 MG tablet 12.5 mg PO BID RF: 0 pantoprazole 40 MG tablet,delayed release (DR/EC) 40 mg PO DAILY RF: 0 sitagliptin 50 MG tablet 50 mg PO DAILY RF: 0 fluticasone propion-salmeterol 1 PUFF inhaler 1 puff INHALATION BID RF: 0 docusate sodium 100 MG capsule 100 mg PO DAILY Qty: 20 RF: 0 docusate sodium 100 MG capsule 100 mg PO DAILY PRN PRN (Reason: Constipation) Qty: 30 RF: 0 Referrals / Follow Up: Sherif Franklin MD [STAFF PHYSICIAN] - 01/13/21 9:30 am Mark Duval MD [Primary Care Provider] - 01/14/21 12:55 pm (Everything will be in MyChart. Please still wear a mask. Appointment will be at the [place] office. ) Disposition Disposition (needs filled in before D/C Order can be placed): Home, self care Documented by User: Dr. Marcia Nesbitt DO 05/26/21 15:02 Providers Date of Admission: 01/05/21 Reason For Visit: ACUTE GI BLEED Medications at Discharge Home Medications amlodipine 5 mg PO QHS 03/26/19 atorvastatin 40 mg PO QHS 03/26/19 clopidogrel 75 mg PO DAILY 03/26/19 fluticasone propionate 2 spray NASAL DAILY 03/26/19 furosemide 20 mg PO DAILY 03/26/19 glimepiride 2 mg PO DAILY 03/26/19 hydroxychloroquine 200 mg PO BID 03/26/19 losartan 100 mg PO DAILY 03/26/19 metoprolol tartrate 12.5 mg PO BID 03/26/19 pantoprazole 40 mg PO DAILY 03/26/19 sitagliptin 50 mg PO DAILY 03/26/19 tamsulosin 0.4 mg PO DAILY 03/26/19 docusate sodium 100 mg PO DAILY #20 cap 10/03/20 fluticasone propion-salmeterol 1 puff INHALATION BID 10/03/20 docusate sodium 100 mg PO DAILY PRN PRN #30 capsule 12/01/20 Hospital Course Operations None Procedures Colonoscopy Summary of Care Provided Minutes Spent on Discharge: 18 Hospital Course: Mr. Sow is a 80-year-old white male who presented to the emergency department at [facility] on 01/05/2021 with a chief c omplaint of bright red blood per rectum. On admission he reported he had a colonoscopy with Dr. Franklin approximately 10 days ago where 2 polyps were removed. He reported at that time he restarted his Plavix 4 days prior to presentation and that maroon stools started on the morning of admission. They had progressively gotten worse as the day went on. On admission he reported a total of 3 stools and all that were maroon/red in color. He denied any other symptoms including lightheadedness, dizziness, chest pain, shortness of breath or palpitations associated with his bright red blood per rectum. He was admitted to PCU and a colonoscopy was done as well as serial H&H's. A colonoscopy showed acute bleeding in the distal transverse colon secondary to previous polypectomy. Clips were placed and it was injected with epinephrine and hemostasis was achieved. His hemoglobin on the day of discharge was 7.5 and 1 unit of packed red blood cells was given prior to discharge. Patient has had no more bleeding and no bowel movements. He was restarted on his home medications and is to follow-up with his PCP in a week with a repeat CBC in 3 to 5 days. He is to call Dr. Franklin's office for an outpatient follow-up as well. Discharge diagnoses Lower GI bleed Acute blood loss anemia HTN CKD stage IIIb CAD HPL RA BPH DM-2 COPD Seasonal allergies Obesity-BMI 34.7 Physical Exam Const alert, oriented x3 and no apparent distress Constitutional Narrative: Older white male sitting up in bed, watching television, at bedside, appears comfortable, nontoxic General Appearance: cooperative, comfortable, well kempt and well developed HEENT normocephalic and head/scalp atraumatic Resp normal respiratory effort, no retractions, no use of accessory muscles and clear to auscultation bilaterally Cardio regular rate, regular rhythm, S1 normal heart sound and S2 normal heart sound Cardio Narrative: 3+ systolic murmur that radiated to bilateral carotids GI normal to inspection, nondistended, normoactive bowel sounds, soft to palpation, non-tender and non-distended Extremity normal to inspection and no clubbing, cyanosis or edema Skin no rashes or lesions noted, no wounds, skin turgor normal and no jaundice Neuro oriented x3, CN's II-XII intact bilaterally, moves all extremities and no focal motor deficits Sensorium / Orientation: awake, alert, oriented to person, oriented to place and oriented to time Speech: speech normal Psych affect normal Psych Narrative: Very pleasant ABG / Lab / Microbiology Data Result Diagrams: 01/07/21 06:35 01/07/21 06:35 Discharge Plan Admission Admit Date/Time: 01/05/21 17:07 Primary Reason for Your Visit: Anemia, lower GI bleed Attending Provider: Marcia Nesbitt Primary Care Provider: Mark Duval Consulting Providers: Sherif Franklin Discharge Orders/Prescriptions Prescriptions: Continued atorvastatin 40 MG tablet 40 mg PO QHS RF: 0 clopidogrel 75 MG tablet 75 mg PO DAILY RF: 0 amlodipine 5 MG tablet 5 mg PO QHS RF: 0 glimepiride 2 MG tablet 2 mg PO DAILY RF: 0 tamsulosin 0.4 MG capsule 0.4 mg PO DAILY RF: 0 furosemide 20 MG tablet 20 mg PO DAILY RF: 0 hydroxychloroquine 200 MG tablet 200 mg PO BID RF: 0 losartan 100 MG tablet 100 mg PO DAILY RF: 0 fluticasone propionate 1 SPRAY spray,suspension 2 spray NASAL DAILY RF: 0 metoprolol tartrate 25 MG tablet 12.5 mg PO BID RF: 0 pantoprazole 40 MG tablet,delayed release (DR/EC) 40 mg PO DAILY RF: 0 sitagliptin 50 MG tablet 50 mg PO DAILY RF: 0 fluticasone propion-salmeterol 1 PUFF inhaler 1 puff INHALATION BID RF: 0 docusate sodium 100 MG capsule 100 mg PO DAILY Qty: 20 RF: 0 docusate sodium 100 MG capsule 100 mg PO DAILY PRN PRN (Reason: Constipation) Qty: 30 RF: 0 Referrals / Follow Up: Sherif Franklin MD [STAFF PHYSICIAN] - 01/13/21 9:30 am Mark Duval MD [Primary Care Provider] - 01/14/21 12:55 pm (Everything will be in MyChart. Please still wear a mask. Appointment will be at the [place] office. ) Disposition Disposition (needs filled in before D/C Order can be placed): Home, self care Visit Charges Inpatient E&M: 95062 Disch Hosp
[2021-01-07 12:16] LABS: Bedside Glucose 161 mg/dL (70-110)
--- NOTE | 2021-01-07 15:01 | PHA.DC.MR ---
Pharmacy Service has performed discharge medication reconciliation for this patient. The patient's discharge medication list was reviewed for discrepancies and discrepancies were resolved. Home Medications amlodipine 5 mg PO QHS 03/26/19 atorvastatin 40 mg PO QHS 03/26/19 clopidogrel 75 mg PO DAILY 03/26/19 fluticasone propionate 2 spray NASAL DAILY 03/26/19 furosemide 20 mg PO DAILY 03/26/19 glimepiride 2 mg PO DAILY 03/26/19 hydroxychloroquine 200 mg PO BID 03/26/19 losartan 100 mg PO DAILY 03/26/19 metoprolol tartrate 12.5 mg PO BID 03/26/19 pantoprazole 40 mg PO DAILY 03/26/19 sitagliptin 50 mg PO DAILY 03/26/19 tamsulosin 0.4 mg PO DAILY 03/26/19 docusate sodium 100 mg PO DAILY #20 cap 10/03/20 fluticasone propion-salmeterol 1 puff INHALATION BID 10/03/20 docusate sodium 100 mg PO DAILY PRN PRN #30 capsule 12/01/20
--- NOTE | 2021-01-08 14:42 | CASEMGMT ---
JARRET OROZCO Discharge Follow-Up Phone Call. Lace: 12 Strata: 3 Discharge Date: 01/07/21 Adm Dx: Acute GIB Attempted discharge f/u phone call. No answer. Recording w/pt's name identified came on. VM left for return call to RN ERNESTO if there are any questions or concerns. Phone number provided. Savanna MILLER RN CM
== END 2021-01-07 17:59 | disposition home or self-care (01) | DRG 920 ==
LOC: ED 14:44 → PCU 17:17
PROVIDERS: Nurse Practitioner Family; Surgery; Admitting Provider Internal Medicine; Emergency Provider Emergency Medicine; PCP Family Medicine; Visit Provider Internal Medicine
PROC: 0DJD8ZZ Inspection of Lower Intestinal Tract, Via Natural or Artificial Opening Endoscopic (ICD-10-PCS; CPT 45378; principal; 2021-01-06 10:25)
DX: K91.840 Postprocedural hemorrhage of a digestive system organ or structure following a digestive system procedure (principal); Y83.8 Other surgical procedures as the cause of abnormal reaction of the patient, or of later complication, without mention of misadventure at the time of the procedure; K92.1 Melena; D62 Acute posthemorrhagic anemia; E11.22 Type 2 diabetes mellitus with diabetic chronic kidney disease; I12.9 Hypertensive chronic kidney disease with stage 1 through stage 4 chronic kidney disease, or unspecified chronic kidney disease; N18.31 Chronic kidney disease, stage 3a; J47.9 Bronchiectasis, uncomplicated; I25.10 Atherosclerotic heart disease of native coronary artery without angina pectoris; M06.9 Rheumatoid arthritis, unspecified; G89.29 Other chronic pain; E78.5 Hyperlipidemia, unspecified; N40.0 Benign prostatic hyperplasia without lower urinary tract symptoms; G47.30 Sleep apnea, unspecified; K21.9 Gastro-esophageal reflux disease without esophagitis; E66.9 Obesity, unspecified; Z68.34 Body mass index [BMI] 34.0-34.9, adult; Y92.9 Unspecified place or not applicable; Z98.890 Other specified postprocedural states; Z79.02 Long term (current) use of antithrombotics/antiplatelets; Z79.84 Long term (current) use of oral hypoglycemic drugs; Z79.899 Other long term (current) drug therapy; Z85.72 Personal history of non-Hodgkin lymphomas; Z87.891 Personal history of nicotine dependence; Z96.652 Presence of left artificial knee joint
CPT/HCPCS: 36415; 74018; 80048; 80053; 82962; 83605; 85014; 85018; 85025; 85610; 85730; 86850; 86900; 86901; 86920; 93005; 94640; 99285; J7030; J7040; P9016; A4216; J1610; J2405; J3490

== ENCOUNTER 2023-11-30 04:30 | Inpatient (IN) | payer MEDICARE, OTHER, SELFPAY ==
[2023-11-30] VITALS (22 sets, daily range): BP systolic 118–145; BP diastolic 60–90; PULSE 76–92; RESP 16–29; TEMP 36.3–36.8; O2SAT 90–98; BMI 35.2; BMI 34.4
--- NOTE | 2023-11-30 04:38 | ED.VIS.DYS ---
HPI History of Present Illness Chief Complaint: Shortness of Breath Informant: patient Onset/Context/Timing Onset: Today Context: sudden Timing: Continuous Quality: Positive for Dyspnea on exertion and Orthopnea Worsened by: Exertion and Lying flat Relieved by: Oxygen Associated Symptoms cough, rhinorrhea and white sputum; Negative for post nasal drip, ear pain, fever, sore throat, chills, sweats, clear sputum, yellow sputum or green sputum Narrative Narrative: Patient presents with shortness of breath that began this morning. Patient states it woke him up approximately 2-1/2 hours ago. Patient states that his oxygen saturation dropped to 88% at home. Patient states he has been having a cough with some white sputum. Patient also admits to some rhinorrhea. Patient states he feels like he cannot catch his breath. Patient states it is worse with lying flat and with exertion. Patient states the oxygen helps his breathing. Patient denies any chest pain. PE Risk Factors: Positive for Cancer; Negative for OCP + Smoking + > 35, Prior DVT or PE, Recent immobilization, Recent surgery or Recent travel [facility] Medical History Alcohol abuse Anemia Bronchiectasis Cataracts, bilateral Chronic pain Coronary artery disease CPAP (continuous positive airway pressure) dependence Diabetes Diverticula of colon Former smoker GERD (gastroesophageal reflux disease) GI bleed History of left heart catheterization Kidney disease Non-Hodgkin lymphoma in remission Parotid adenoma Rheumatoid arthritis Sleep apnea Home Medications amlodipine 5 mg tablet 5 mg PO QHS bp 03/26/19 [History Last Taken 01/04/21] atorvastatin 40 mg tablet 40 mg PO QHS cholesterol 03/26/19 [History Last Taken 01/04/21] clopidogrel 75 mg tablet 75 mg PO DAILY antiplatelet 03/26/19 [History Last Taken 01/05/21] furosemide 20 mg tablet 20 mg PO DAILY diuretic 03/26/19 [History Last Taken 01/04/21] glimepiride 2 mg tablet 2 mg PO DAILY diabetes 03/26/19 [History Last Taken 01/05/21] hydroxychloroquine 200 mg tablet 200 mg PO DAILY gout 03/26/19 [History Last Taken 01/05/21] losartan 100 mg tablet 200 mg PO DAILY bp 03/26/19 [History Last Taken 01/05/21] metoprolol tartrate 25 mg tablet 12.5 mg PO BID bp 03/26/19 [History Last Taken 01/05/21] pantoprazole 40 mg tablet,delayed release 40 mg PO DAILY gerd 03/26/19 [History Last Taken 01/05/21] sitagliptin phosphate 50 mg tablet 50 mg PO DAILY diabetes 03/26/19 [History Last Taken 01/05/21] tamsulosin 0.4 mg capsule 0.4 mg PO DAILY prostate 03/26/19 [History Last Taken 01/04/21] albuterol sulfate 90 mcg/actuation aerosol inhaler inhalation 11/30/23 [History Last Taken 11/30/23] Allergy/AdvReac Type Severity Reaction Status Date / Time aspirin Allergy Other Verified 11/30/23 04:45 lisinopril Allergy Shortness Verified 11/30/23 04:45 of breath Surgical History History of ankle fusion History of knee replacement procedure of left knee Hx of lymph node excision Social History household members: spouse Smoking Status: Unknown if ever smoked alcohol intake: current alcohol intake frequency: 0-2 drinks per day substance use type: does not use ROS ROS ED Constitutional Constitutional ED: Denies chills or fever(s) Eyes Eyes: Denies blurry vision or change in vision ENT ENT ED: Denies rhinorrhea or sore throat Cardiovascular Cardiovascular: Denies chest pain or palpitations Respiratory/Chest Respiratory/Chest: Reports dyspnea; Denies cough Gastrointestinal Gastrointestinal: Denies nausea or vomiting Genitourinary Genitourinary ED: Reports urinary frequency; Denies dysuria or hematuria Musculoskeletal Musculoskeletal: Denies back pain or neck pain Integumentary Reports rash; Denies abscess Neurologic Neurologic: Denies headache(s) or weakness Allergic/Immunologic Allergic/Immunologic ED: Denies mouth swelling or urticaria EXAM Physical Exam Const Vital Signs: 11/30/23 04:31 11/30/23 04:39 11/30/23 04:41 Temperature 97.8 F 97.8 F Temperature Source Oral Oral Pulse Rate 92 91 Respiratory Rate 29 H 22 H Respiratory Effort Short of Breath Labored Blood Pressure 127/90 H 127/90 H Blood Pressure Mean 102 102 Pulse Ox 92 92 Oxygen Delivery Method Room Air Room Air Room Air Oxygen Flow Rate (L/min) 04/17/24 04:53 11/30/23 05:14 11/30/23 06:31 Temperature Temperature Source Pulse Rate 88 87 Respiratory Rate 18 Respiratory Effort Blood Pressure 142/62 H 144/63 H Blood Pressure Mean 90 Pulse Ox 94 90 Oxygen Delivery Method Nasal Cannula Nasal Cannula Oxygen Flow Rate (L/min) 2 2 11/30/23 05:39 11/30/23 08:00 Temperature 97.3 F L Temperature Source Oral Pulse Rate 86 87 Respiratory Rate 19 H 17 Respiratory Effort Blood Pressure 135/63 H 145/71 H Blood Pressure Mean 87 95 Pulse Ox 93 96 Oxygen Delivery Method Nasal Cannula Nasal Cannula Oxygen Flow Rate (L/min) 2 3 Positive well nourished and well developed General Appearance ED: well developed and NAD HEENT Reports moist mucous membranes Neck supple and no JVD Resp normal respiratory effort Auscultation: rales bilateral lower and 1/3 way up Cardio regular rate and regular rhythm GI non-tender and non-distended Palpation: soft Extremity Extremity Narrative: There is 2+ edema of the lower extremities bilaterally. General Extremety ED: Yes edema; Negative for tenderness General Extremity: edema Neuro oriented x3, CN's II-XII intact bilaterally and no sensory deficits noted Devin Coma Scale: document GCS findings Spontaneous Obeys Commands Oriented 15 Sensorium / Orientation: alert Speech: speech normal Motor Exam: strength 5/5 throughout Psych mental status grossly normal MDM MDM MDM Narrative Medical decision making narrative: Differential diagnosis includes cardiac dysrhythmia, cardiac ischemia, congestive heart failure, pneumonia, pulmonary embolism, electrolyte abnormality, and viral illness. Chest x-ray will be obtained to assess for pneumonia and congestive heart failure. EKG will be obtained to assess for cardiac dysrhythmia and cardiac ischemia. CBC will be obtained to assess for leukocytosis and anemia. Basic metabolic profile will be obtained to assess for electrolyte abnormality and renal function. High-sensitivity troponin will be obtained to assess for cardiac ischemia. 2-hour repeat high-sensitivity troponin will be obtained to assess for ongoing cardiac ischemia. BNP will be obtained to assess for congestive heart failure. D-dimer will be obtained to assess for pulmonary embolism. COVID-19, influenza, and RSV PCR will be obtained to assess for viral infection. Lab Data Attestation: I reviewed the patient's lab results. Lab results narrative: CBC was reviewed. There is a mild anemia with a hemoglobin of 7.5 and hematocrit of 24.2. This is consistent with prior results. D-dimer was reviewed and was elevated at 1.8. BNP was reviewed and was elevated at 488.1. There are no prior results available for comparison. Initial high-sensitivity troponin was reviewed and was elevated at 1156. Basic metabolic profile was reviewed. CO2 was slightly low at 18.0. BUN was elevated at 50 and creatinine was elevated at 3.12. These are increased from previous results. COVID-19 PCR was reviewed and was negative. Influenza PCR was reviewed and was negative for influenza A and influenza B. RSV PCR was reviewed and was negative. Labs: Laboratory Results - last 24 hr 11/30/23 11/30/23 11/30/23 05:02 05:27 07:13 WBC 7.9 RBC 2.87 L Hgb 7.5 L Hct 24.2 L MCV 84.3 MCH 26.1 L MCHC 31.0 L RDW Std Deviation 55.6 H RDW Coeff of Christiano 19.4 H Plt Count 295 MPV 10.8 Immature Gran % (Auto) 1.000 H Neut % (Auto) 74.3 H Lymph % (Auto) 12.4 L [place] % (Auto) 8.5 Eos % (Auto) 3.0 Baso % (Auto) 0.8 Absolute Neuts (auto) 5.9 Absolute Lymphs (auto) 0.98 Nucleated RBC % 0.4 D-Dimer Quant (PE/DVT) 1.80 H* Sodium 138 Potassium 3.9 Chloride 109 H Carbon Dioxide 18.0 L Anion Gap 11 BUN 50 H Creatinine 3.12 H Estim Creat Clear Calc 24.91 Est GFR (MDRD) Af Amer 25 L Est GFR (MDRD) Non-Af 20 L BUN/Creatinine Ratio 16.0 Glucose 202 H Calcium 9.1 Troponin I High Sens 1156 H* 1580 H* B-Natriuretic Peptide 488.1 H Urine Color Yellow Urine Clarity Clear Urine pH 5.0 Ur Specific [place] 1.015 Urine Protein 30 H Urine Glucose (UA) Normal Urine Ketones Negative Urine Occult Blood Negative Urine Nitrite Negative Urine Bilirubin Negative Urine Urobilinogen Normal Ur Leukocyte Esterase Negative Urine RBC 0 SEEN Urine WBC 0 SEEN Ur Squamous Epith Cells 0-5 SEEN Urine Bacteria 0 SEEN Urine Mucus 0 SEEN Radiography Chest X-Ray - ED: 2 View, Read by ED Physician, Read by Radiologist, Chronic Changes and CHF Diagnostic Testing: Clinical Impression(s) from Imaging Studies Chest X-Ray 11/30/23 04:53 IMPRESSION: Bibasilar infiltrates with small pleural effusions. Pulmonary edema versus pneumonia. Electronically Signed: Kim Juarez MD at 6:40 EDT Reading Location ID and State: [address] [place] [address] Tel , Service support , EKG Initial EKG: Attestation: I personally reviewed and interpreted this EKG as follows: Interpretation: Sinus Rhythm (With first-degree AV block with rate of 86), No Acute Injury Pattern and RBBB Comments: EKG was obtained. On my independent interpretation, shows sinus rhythm with a first-degree AV block with a rate of 86. SD interval was prolonged at 214 ms. QRS interval was prolonged at 154 ms. QTc interval was prolonged at 521 ms. There is left axis deviation at -71. There is a right bundle branch block pattern noted. There are no acute ST or T wave changes noted. Prior EKG tracings: available for review Prior: Unchanged (01/06/2021) Management Discussion w/another healthcare provider: Hospitalist and Dba Developer Treatment and Re-Evaluation :: Patient was given nitroglycerin paste to his chest wall. Patient states that he is unable to take aspirin due to gastrointestinal bleeding. Therefore this was withheld. Patient was feeling better on reevaluation. Patient was advised of his findings. Patient was advised of the need for hospitalization. Case was discussed with the hospitalist here. He recommended contacting cardiology. Case was discussed with Dr. Sidhu from cardiology. He stated that he would see the patient in consultation. Patient requested to be transferred to [facility]. Case were discussed with the hospitalist at [facility]. They initially accepted the patient to be transferred there but recommended contacting cardiology in case cardiology felt that the patient would possibly need intervention. Case was discussed with cardiology at [facility]. He stated the patient did have a creatinine of 2.4 in September at their facility. He felt that the patient will possibly need a intervention because of the elevated troponins. He stated that their facility is not capable of that. He recommended transferring the patient to either [facility] or [facility]. The transfer line at [facility] was contacted. There are no beds available there at this time. They stated that [facility] may have beds available. Patient does not want to go there. Patient now states that he would prefer to stay here. Case was discussed with the hospitalist here again. He will admit the patient to PCU. Patient understands and is agreeable with plan. All questions were answered. Discharge Plan Dx/Rx/DC Orders Clinical Impression: Congestive heart failure, Acute kidney injury, Non-ST elevated myocardial infarction (non-STEMI) Disposition Disposition: Acute Care Hospital [facility]
--- NOTE | 2023-11-30 04:53 | EKG12_ITS ---
Test Reason : DYSRHYTHMIA Blood Pressure : / mmHG Vent. Rate : 086 BPM Atrial Rate : 086 BPM P-R Int : 214 ms QRS Dur : 154 ms QT Int : 436 ms P-R-T Axes : 045 -71 000 degrees QTc Int : 521 ms Sinus rhythm with 1st degree A-V block Left axis deviation Right bundle branch block Abnormal ECG When compared with ECG of 06-JAN-2021 05:49, QRS axis Shifted left QT has lengthened Confirmed by MARTIN LEBRON, LULÚ ([id number]), city editor PARISA PEREZ ([id number]) on 12/12/2023 1:18:50 PM Referred By: Confirmed By:CORINA SALAZAR MD
--- NOTE | 2023-11-30 04:53 | RAD_ITS ---
INDICATION: Dyspnea EXAMINATION/TECHNIQUE: X-RAY - XR Chest 2 Views COMPARISON: 11/30/2020 FINDINGS: LINES/DEVICES: None. LUNGS: Mixed interstitial and alveolar infiltrates bilaterally greater at the lung bases. Small bilateral pleural effusions. No consolidation. No pneumothorax. MEDIASTINUM: Aorta is atherosclerotic. CARDIAC SILHOUETTE: Not enlarged. BONES AND SOFT TISSUES: No acute abnormalities. RAD/Chest PA and Lateral IMPRESSION: Bibasilar infiltrates with small pleural effusions. Pulmonary edema versus pneumonia. Electronically Signed: Kim Juarez MD at 6:40 EDT ,
[2023-11-30] MEDS: Nitroglycerin Oint 1 INCH PACKET TD (05:14)
[2023-11-30 05:19] LABS: Absolute Lymphocyte Count 0.98 X10^3/uL (0.83-4.51); Absolute Neutrophil Count 5.9 X10^3/uL (2.0-7.7); Basophil# 0.06 X10^3/uL; Basophil% 0.8 % (0-1); Eosinophil# 0.24 X10^3/uL; Hematocrit 24.2 % (40-54); Hemoglobin 7.5 g/dL (13.0-16.5); Lymphocyte # 0.98 X10^3/ul (0.83-4.51); Lymphocyte % 12.4 % (19-41); Mean Corpuscular Hgb 26.1 pg (27.0-32.0); Mean Corpuscular Volume 84.3 fL (80-94); Mean Platelet Vol. 10.8 fl (6.2-12.0); Monocyte# 0.67 X10^3/uL; Monocyte% 8.5 % (0-10); NRBC Flagged by Analyzer 0.4 % (0-5); Neutrophil # 5.85 X10^3/uL (2.7-7.7); Neutrophil % 74.3 % (47-70); Platelet Count 295 K/mm3 (150-450); RBC Distribution Width CV 19.4 % (11.6-14.6); RBC Distribution Width SD 55.6 fl (35.1-43.9); Red Blood Count 2.87 M/mm3 (4.6-6.2); White Blood Count 7.9 K/mm3 (4.4-11.0)
[2023-11-30 05:44] LABS: BNP,B-Type NATRIURETIC PEPTIDE 488.1 pg/mL (0-100)
[2023-11-30 05:46] LABS: Bacteria 0 SEEN /hpf (None Seen); Mucous, Urine 0 SEEN /hpf (<or=2+); Red Blood Cells-Urine 0 SEEN /hpf (0-5); White Blood Cells 0 SEEN /hpf (0-5)
[2023-11-30 05:49] LABS: Anion Gap 11 (5-15); BUN 50 mg/dL (7-18); Calcium,Total 9.1 mg/dL (8.5-10.1); Chloride 109 mmol/L (98-107); Creatinine, Serum 3.12 mg/dL (0.70-1.30); EST Glomerular Filtration Rate 20 mL/min (>60); Est Glom Filt Rate - Afr Amer 25 mL/min (>60); Estimated Creatinine Clearance 24.91 ml/min; Glucose 202 mg/dL (74-106); Potassium 3.9 mmol/L (3.5-5.1); Sodium Level 138 mmol/L (136-145); Troponin-I HS (w/2H Reflex) 1156 pg/mL (3.0-78.0)
[2023-11-30 05:51] LABS: Color, Urine Yellow (Yellow); Glucose, Dipstick Normal (Normal); Ketone-Dipstick Negative (Negative); Leukocyte Esterase-Dipstick Negative /ul (Negative); Nitrite-Dipstick Negative (Negative); Occult Blood-Urine Negative /ul (Negative); Protein-Dipstick 30 mg/dl (Negative); Specific Gravity, Urine 1.015 (1.002-1.030); Urine Bilirubin Dipstick Negative (Negative); Urine Clarity Clear (Clear); Urine Urobilinogen Normal (Normal)
[2023-11-30 06:03] LABS: Squamous Epithelial Cells - UA 0-5 SEEN /hpf (0-5)
[2023-11-30 07:06] LABS: Reflex Troponin-HS? (from REC) Y
[2023-11-30 08:00] LABS: Troponin-I HS 1580 pg/mL (3.0-78.0)
--- NOTE | 2023-11-30 08:01 | ED.RN ---
REPEAT TROP OF 1580. DR HARGROVE
--- NOTE | 2023-11-30 08:26 | ED.RN ---
PT DEEMED NON SEPSIS PER ED PHYSICIAN. PT NSTEMI. SEPSIS COMPLETE AT THIS TIME
[2023-11-30 09:46] LABS: International Normalized Ratio 1.4; Prothrombin Time (Protime)PT. 16.7 SECONDS (11.7-14.9)
[2023-11-30 09:47] LABS: Partial Thromboplast Time 32.5 Seconds (24.1-36.2)
--- NOTE | 2023-11-30 10:45 | HP.PCM.HOS_ITS ---
HPI - General General Date of Admission: 11/30/23 Date of Service: 11/30/23 Chief Complaint: Short of breath. HPI Narrative BRYANT MEZA, is a 83 M who presents with shortness of breath and his oxygen was noted to be low. He has noted that his weight has gone up, increased LE edema. Has known h/o anemia which he receives periodic infusions of Iron Sucrose. He denies hematochezia and melena and hematemesis. He presented to ED and had elevated troponins of 1156 to 1580. D-dimer was elevated at 1.8 (CTA unable to be performed given CKD). CXR showed pulmonary edema and pleural effusions. Initially, pt preferred to go to [place] as he is well established in the [facility] system, but could not do PCI there. They reached out to [facility] and had no beds. Pt did then agree to stay at [facility] for work up. 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 adenoma Rheumatoid arthritis Sleep apnea Home Medications amlodipine 5 mg tablet 5 mg PO QHS bp 03/26/19 [History Last Taken 11/29/23] atorvastatin 40 mg tablet 40 mg PO QHS cholesterol 03/26/19 [History Last Taken 11/29/23] glimepiride 2 mg tablet 2 mg PO DAILY diabetes 03/26/19 [History Last Taken 11/29/23] hydroxychloroquine 200 mg tablet 200 mg PO DAILY gout 03/26/19 [History Last Taken 11/29/23] losartan 100 mg tablet 100 mg PO DAILY bp 03/26/19 [History Last Taken 11/29/23] metoprolol tartrate 25 mg tablet 12.5 mg PO BID bp 03/26/19 [History Last Taken 11/29/23] pantoprazole 40 mg tablet,delayed release 40 mg PO DAILY gerd 03/26/19 [History Last Taken 11/29/23] sitagliptin phosphate 50 mg tablet 50 mg PO DAILY diabetes 03/26/19 [History Last Taken 11/29/23] tamsulosin 0.4 mg capsule 0.4 mg PO DAILY prostate 03/26/19 [History Last Taken 11/29/23] albuterol sulfate 90 mcg/actuation aerosol inhaler 2 puff inhalation Q4H PRN shortness of breath or wheezing 11/30/23 [History Last Taken 11/30/23] allopurinol 100 mg tablet 100 mg PO DAILY 11/30/23 [History Last Taken 11/29/23] allopurinol 300 mg tablet 300 mg PO DAILY 11/30/23 [History Last Taken Unknown] apixaban 2.5 mg tablet (Eliquis) 2.5 mg PO BID 11/30/23 [History Last Taken 11/29/23] budesonide 160 mcg-glycopyr 9 mcg-formot 4.8 mcg/actuation HFA inhaler (Breztri Aerosphere) 2 inh inhalation BID 11/30/23 [History Last Taken 11/29/23] colchicine 0.6 mg tablet 0.6 mg PO DAILY GOUT 11/30/23 [History Last Taken 11/29/23] fluticasone propionate 50 mcg/actuation nasal spray,suspension (24 Hour Allergy Relief) 1 spray intranasal DAILY PRN allergy symptoms 11/30/23 [History Last Taken Unknown] sildenafil 100 mg tablet (Viagra) 100 mg PO PRN PRN sexual activity 11/30/23 [History Last Taken Unknown] torsemide 40 mg tablet (Soaanz) 40 mg PO DAILY 11/30/23 [History Last Taken 11/29/23] Allergy/AdvReac Type Severity Reaction Status Date / Time aspirin Allergy Other Verified 11/30/23 04:45 lisinopril Allergy Shortness Verified 11/30/23 04:45 of breath Family History (Updated 11/30/23 @ 10:[address] Juan Chen DO) Other Heart disease Surgical History History of ankle fusion History of knee replacement procedure of left knee Hx of lymph node excision Social History household members: spouse Smoking Status: Unknown if ever smoked alcohol intake: current alcohol intake frequency: 0-2 drinks per day substance use type: does not use ROS ROS Narrative All review of systems were negative except as mentioned above in the history of present illness and the other review of systems. Vital Signs Vital Signs Vital Signs: 11/30/23 04:31 11/30/23 04:39 11/30/23 04:41 Temperature 36.6 C 36.6 C Temperature Source Oral Oral Pulse Rate 92 91 Respiratory Rate 29 H 22 H Respiratory Effort Short of Breath Labored Blood Pressure 127/90 H 127/90 H Blood Pressure Mean 102 102 Pulse Ox 92 92 Oxygen Delivery Method Room Air Room Air Room Air Oxygen Flow Rate (L/min) 11/30/23 04:53 11/30/23 05:14 11/30/23 06:31 Temperature Temperature Source Pulse Rate 88 87 Respiratory Rate 18 Respiratory Effort Blood Pressure 142/62 H 144/63 H Blood Pressure Mean 90 Pulse Ox 94 90 Oxygen Delivery Method Nasal Cannula Nasal Cannula Oxygen Flow Rate (L/min) 2 2 11/30/23 05:39 11/30/23 08:00 11/30/23 10:00 Temperature 36.3 C L Temperature Source Oral Pulse Rate 86 87 88 Respiratory Rate 19 H 17 20 H Respiratory Effort Blood Pressure 135/63 H 145/71 H 133/68 H Blood Pressure Mean 87 95 89 Pulse Ox 93 96 93 Oxygen Delivery Method Nasal Cannula Nasal Cannula Nasal Cannula Oxygen Flow Rate (L/min) 2 3 3 11/30/23 10:38 Temperature 36.6 C Temperature Source Pulse Rate 85 Respiratory Rate 20 H Respiratory Effort Blood Pressure 134/72 H Blood Pressure Mean 92 Pulse Ox 96 Oxygen Delivery Method Oxygen Flow Rate (L/min) Weight Weight: 121.3 kg Body Mass Index (BMI) 35.2 Physical Exam Const alert and no apparent distress Constitutional Narrative: no respiratory distress. General Appearance: cooperative HEENT normocephalic and head/scalp atraumatic Eyes EOMs intact bilaterally Eyes Narrative: no icterus. Neck no lymphadenopathy and no JVD Resp normal respiratory effort, no retractions, no use of accessory muscles and clear to auscultation bilaterally Cardio regular rate, regular rhythm, S1 normal heart sound and S2 normal heart sound GI normal to inspection, nondistended, normoactive bowel sounds, soft to palpation, non-tender and non-distended Extremity Extremity Narrative: non-pitting LE edema. Skin Skin Narrative: no rashes/lesions. Neuro moves all extremities Sensorium / Orientation: awake and alert Psych affect normal Results Lab / Micro Data Attestation: I reviewed the patient's lab results. 11/30/23 05:02 11/30/23 05:02 Labs: Laboratory Results - last 24 hr 11/30/23 05:02: WBC 7.9, RBC 2.87 L, Hgb 7.5 L, Hct 24.2 L, MCV 84.3, MCH 26.1 L , MCHC 31.0 L, RDW Std Deviation 55.6 H, RDW Coeff of Christiano 19.4 H, Plt Count 295, MPV 10.8, Immature Gran % (Auto) 1.000 H, Neut % (Auto) 74.3 H, Lymph % (Auto) 12.4 L, [place] % (Auto) 8.5, Eos % (Auto) 3.0, Baso % (Auto) 0.8, Absolute Neuts (auto) 5.9, Absolute Lymphs (auto) 0.98, Nucleated RBC % 0.4, D-Dimer Quant (PE/DVT) 1.80 H*, Sodium 138, Potassium 3.9, Chloride 109 H, Carbon Dioxide 18.0 L, Anion Gap 11, BUN 50 H, Creatinine 3.12 H, Estim Creat Clear Calc 24.91, Est GFR (MDRD) Af Amer 25 L, Est GFR (MDRD) Non-Af 20 L, BUN/Creatinine Ratio 16.0, Glucose 202 H, Calcium 9.1, Troponin I High Sens 1156 H*, B-Natriuretic Peptide 488.1 H 11/30/23 05:27: Urine Color Yellow, Urine Clarity Clear, Urine pH 5.0, Ur Specific [place] 1.015, Urine Protein 30 H, Urine Glucose (UA) Normal, Urine Ketones Negative, Urine Occult Blood Negative, Urine Nitrite Negative, Urine Bilirubin Negative, Urine Urobilinogen Normal, Ur Leukocyte Esterase Negative, Urine RBC 0 SEEN, Urine WBC 0 SEEN, Ur Squamous Epith Cells 0-5 SEEN, Urine Bacteria 0 SEEN, Urine Mucus 0 SEEN 11/30/23 07:13: Troponin I High Sens 1580 H* 11/30/23 09:31: PT 16.7 H, INR 1.4, APTT 32.5 11/30/23 10:35: Crossmatch See Detail Micro: Microbiology 11/30/23 05:12 Mucosa - Nose SARS-CoV-2, Influenza & RSV (PCR) - Final EKG Initial EKG: Attestation: I personally reviewed and interpreted this EKG as follows: Prior EKG tracings: available for review EKG Rhythm Intrepretation: Sinus Rhythm Imaging Radiology Impression Chest X-Ray 11/30/23 04:53 IMPRESSION: Bibasilar infiltrates with small pleural effusions. Pulmonary edema versus pneumonia. Electronically Signed: Kim Juarez MD at 6:40 EDT Reading Location ID and State: [facility] / [place] Tel , Service support , Assessment & Plan Assessment/Plan (1) Non-ST elevated myocardial infarction (non-STEMI): PLAN: Plan NSTEMI * unclear type * medical mgmt for now. High risk for PCI given CKD. * check echo * cardiology consult Acute CHF exacerbation * unknown type * furosemide cautiously * check echo * hold losartan given CKD * Check [facility] records. Chronic anemia * he has undergone an extensive work up with EGD, colonoscopy and capsule endoscopy that has been unremarkable. He is scheduled to have those performed again in December. * Transfuse to goal Hg of 8 * Pt scheduled to have iron sucrose today and 12/01. Will infuse today. 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 * hold losartan Afib * chronic * on apixaban. * sees EP at [facility] and it has been mentioned that he may need a Watchman's device Chronic conditions: * DM2: hold oral meds. SSI * gout: continue allopurinol * HTN: continue amlodipine VTE prophylaxis: not indicated as he is already anticoagulated. Code: Full. Charges/Coding Visit Charges Inpatient E&M: 56435 Init Hosp L3
--- NOTE | 2023-11-30 11:13 | EKG12_ITS ---
Test Reason : Blood Pressure : / mmHG Vent. Rate : 082 BPM Atrial Rate : 000 BPM P-R Int : 000 ms QRS Dur : 152 ms QT Int : 446 ms P-R-T Axes : 000 -61 002 degrees QTc Int : 521 ms Atrial fibrillation with premature ventricular or aberrantly conducted complexes Left axis deviation Right bundle branch block Abnormal ECG When compared with ECG of 30-NOV-2023 05:01, MANUAL COMPARISON REQUIRED, DATA IS UNCONFIRMED Confirmed by CARA PANDA ([id number]), editor trade journal STEVIE LEON ([id number]) on 12/05/2023 9:31:32 AM Referred By: ALFREDO Confirmed By:CARA PANDA
--- NOTE | 2023-11-30 11:13 | ECHOD_ITS ---
Reason For Study: CHEST PAIN Procedure This was a 2D Doppler, Color Flow transthoracic echocardiogram. The study was technically difficult. Exam performed portable in patient room. Left Ventricle Normal LV size. Left ventricular systolic function is normal. The estimated ejection fraction is 65 %. No regional wall motion abnormalities noted. Right Ventricle Normal RV size. Normal systolic function. Atria The left atrium is mildly enlarged. The right atrium is mildly enlarged. Mitral Valve There is moderate mitral annular calcification. Mild (1+) eccentric mitral valve insufficiency. Tricuspid Valve Normal tricuspid valve. Mild (1+) tricuspid valve insufficiency. Pulmonary artery systolic pressure is 40 mmHg. Aortic Valve Trisinus/trileaflet aortic valve. Mild focal aortic valve calcification. Peak aortic valve gradient 29 mmHg. Mean aortic valve gradient 17 mmHg. Pulmonic Valve Normal pulmonic valve. Great Vessels Normal aortic root. The pulmonary artery is normal size. Normal inferior vena cava. Pericardium/Pleural No pericardial effusion. MMode/2D Measurements & Calculations LVIDd: 5.3 cm IVSd: 1.1 cm LVOT diam: 2.2 cm LVIDs: 3.5 cm LVPWd: 1.2 cm LVOT area: 3.8 cm2 FS: 35.2 % Ao root diam: 4.1 cm LAV(MOD-bp): 88.8 ml LVAd ap4: 33.7 cm2 LAV(MOD-bp) Indexed: 36.5 ml/m2 LVLd ap4: 8.7 cm LAV(MOD-sp2): 99.3 ml EDV(MOD-sp4): 111.9 ml LAV(MOD-sp4): 72.5 ml EDV(sp4-el): 110.4 ml LVAs ap4: 17.5 cm2 LVLs ap4: 6.9 cm ESV(MOD-sp4): 37.9 ml ESV(sp4-el): 37.9 ml EF(MOD-sp4): 66.2 % EF(sp4-el): 65.7 % LVAd ap2: 29.7 cm2 SV(MOD-sp4): 74.1 ml SV(MOD-sp2): 53.8 ml LVLd ap2: 8.3 cm EDV(MOD-sp2): 86.8 ml EDV(sp2-el): 89.9 ml LVAs ap2: 18.1 cm2 LVLs ap2: 8.3 cm ESV(MOD-sp2): 33.0 ml ESV(sp2-el): 33.6 ml EF(MOD-sp2): 62.0 % SV(sp4-el): 72.5 ml LA dimension(2D): 3.8 cm LA A4 area: 22.7 cm2 RA A4 area: 18.8 cm2 TAPSE: 2.1 cm Doppler Measurements & Calculations MV E max marco a: 138.4 cm/sec Lat Peak E' Marco A: 12.7 cm/sec Med Peak E' Marco A: 10.2 cm/sec E/E' lat: 10.9 E/E' med: 13.6 MV V2 max: 150.0 cm/sec Ao V2 max: 268.6 cm/sec LV V1 max: 117.4 cm/sec MV max P.0 mmHg Ao max P.9 mmHg LV V1 max P.5 mmHg MV V2 mean: 77.1 cm/sec Ao V2 mean: 194.2 cm/sec LV V1 mean P.3 mmHg MV mean P.0 mmHg Ao mean P.7 mmHg LV V1 mean: 85.9 cm/sec MV V2 VTI: 23.9 cm Ao V2 VTI: 62.4 cm LV V1 VTI: 25.5 cm MVA(VTI): 4.0 cm2 AV (velocity ratio): 0.41 LETITIA(I,D): 1.5 cm2 LETITIA(V,D): 1.7 cm2 SV(LVOT): 96.6 ml PA V2 max: 92.1 cm/sec TR max marco a: 300.0 cm/sec PA V2 mean: 62.5 cm/sec TR max P.0 mmHg ECHO/Echo Complete Interpretation Summary Normal LV size. Left ventricular systolic function is normal. The estimated ejection fraction is 65 %. Mild focal aortic valve calcification. Peak aortic valve gradient 29 mmHg. Mean aortic valve gradient 17 mmHg. There is moderate mitral annular calcification. Mild (1+) eccentric mitral valve insufficiency. Ordering Physician: Juan Chen Referring Physician: Mark Duval Performed By: Rain Lemus, HAKAN, RVT
[2023-11-30 11:55] LABS: Bedside Glucose 139 mg/dL (74-106)
[2023-11-30] MEDS: Sodium Ferric Gluconat 125 MG in 0.9% Normal Saline 100 ML 110 MG IV (12:11)
[2023-11-30] MEDS: Metoprolol Tartrate 25 MG Tablet 12.5 MG PO ×2 (12:17→22:27)
[2023-11-30] MEDS: Pantoprazole Sodium 40 MG Tablet PO (12:17)
[2023-11-30] MEDS: Hydroxychloroquine 200 MG Tablet PO (12:18)
[2023-11-30] MEDS: Furosemide 40 MG/4 ML Vial IV ×2 (12:21→16:56)
[2023-11-30 12:22] LABS: Troponin-I HS 2781 pg/mL (3.0-78.0)
[2023-11-30] MEDS: Allopurinol 300 MG Tablet PO (14:58)
[2023-11-30] MEDS: APIXABAN 2.5 MG TABLET (WCH) PO ×2 (14:59→22:27)
[2023-11-30] MEDS: Albuterol 2.5 MG/3 ML VIAL.NEB. INHALATION ×3 (15:05→22:47)
[2023-11-30] MEDS: Insulin Lispro 100 UNIT/ML INSULN.PEN SC (16:32)
[2023-11-30] MEDS: 0.9% Saline Lock 10 ML Syringe IV (16:57)
--- NOTE | 2023-11-30 18:45 | PCM.CONS.C ---
Assessment & Plan Assessment/Plan (1) Congestive heart failure: PLAN: He does have evidence of congestive heart failure with preserved ejection fraction. The above is likely secondary to valvular heart disease exacerbated by his severe anemia. Coronary disease cannot be completely excluded. He does have significant renal dysfunction which is also impairing fluid efflux. The echocardiogram performed today did confirm his preserved ejection fraction and his mild to moderate aortic stenosis. Recommendation and will be to continue with diuresis with intravenous Lasix. Ideally blood transfusion will help with benefit him as well (2) Non-ST elevated myocardial infarction (non-STEMI): PLAN: He does have elevated cardiac enzymes likely secondary to non-ST elevation myocardial infarction and demand ischemia. I did suggest to him that with his worsening renal function we are not particularly enthused to perform any dye related procedure at this particular time. Will continue with conservative and expectant management with beta-mustapha and nitrates as appropriate Will also continue high intensity statin I would recommend discontinuing the clopidogrel for now. (3) Aortic stenosis: PLAN: The above appears to be stable from previous history and there is no intervention planned at this particular time. Thank you for allowing me to participate in the care of your patient. Please don't hesitate to call if any issues arise. (4) Atrial fibrillation: PLAN: Patient appears to have persistent atrial fibrillation with a controlled ventricular response rate. The plan is to continue the current medical therapy. He is on low-dose anticoagulation with Eliquis 2.5 mg a day which will be continued for now. HPI Consult Data Date of Consult: 11/30/23 HPI Narrative HPI Narrative: BRYANT MEZA, is a 83 M who presents to the emergency room with shortness of breath which apparently has been going on for a few days. He has a history of chronic anemia presumably due to gastrointestinal etiology though the exact area has not been elucidated yet. He has previously been receiving his care in [facility] and within the [facility] system. He had been told that he had a valve problem and also severely anemic. He had been getting short of breath as well as developed pedal edema in the emergency room he had initially been suggested to that he needs to be admitted here and it was discussed with me. Afterwards he switched his mind and wanted to go to the [facility] system however there were no beds there and so the decision was made to admit him here. He denies any chest pain or paroxysmal nocturnal dyspnea he has had some orthopnea and pedal edema he is doing better on oxygen. His EKG demonstrated no acute changes but atrial fibrillation. [facility] Medical History Alcohol abuse Anemia Bronchiectasis Cataracts, bilateral Chronic pain Coronary artery disease CPAP (continuous positive airway pressure) dependence Diabetes Diverticula of colon Former smoker GERD (gastroesophageal reflux disease) GI bleed History of left heart catheterization Kidney disease Non-Hodgkin lymphoma in remission Parotid adenoma Rheumatoid arthritis Sleep apnea Home Medications amlodipine 5 mg tablet 10 mg PO QHS bp 03/26/19 [History Last Taken 11/29/23] atorvastatin 40 mg tablet 40 mg PO QHS cholesterol 03/26/19 [History Last Taken 11/29/23] glimepiride 2 mg tablet 2 mg PO DAILY diabetes 03/26/19 [History Last Taken 11/29/23] hydroxychloroquine 200 mg tablet 200 mg PO DAILY gout 03/26/19 [History Last Taken 11/29/23] losartan 100 mg tablet 100 mg PO DAILY bp 03/26/19 [History Last Taken 11/29/23] metoprolol tartrate 25 mg tablet 12.5 mg PO BID bp 03/26/19 [History Last Taken 11/29/23] pantoprazole 40 mg tablet,delayed release 40 mg PO DAILY gerd 03/26/19 [History Last Taken 11/29/23] sitagliptin phosphate 50 mg tablet 50 mg PO DAILY diabetes 03/26/19 [History Last Taken 11/29/23] tamsulosin 0.4 mg capsule 0.4 mg PO DAILY prostate 03/26/19 [History Last Taken 11/29/23] albuterol sulfate 90 mcg/actuation aerosol inhaler 2 puff inhalation Q4H PRN shortness of breath or wheezing 11/30/23 [History Last Taken 11/30/23] allopurinol 100 mg tablet 100 mg PO DAILY 11/30/23 [History Last Taken 11/29/23] allopurinol 300 mg tablet 300 mg PO DAILY 11/30/23 [History Last Taken Unknown] apixaban 2.5 mg tablet (Eliquis) 2.5 mg PO BID 11/30/23 [History Last Taken 11/29/23] budesonide 160 mcg-glycopyr 9 mcg-formot 4.8 mcg/actuation HFA inhaler (Breztri Aerosphere) 2 inh inhalation BID 11/30/23 [History Last Taken 11/29/23] colchicine 0.6 mg tablet 0.6 mg PO DAILY GOUT 11/30/23 [History Last Taken 11/29/23] fluticasone propionate 50 mcg/actuation nasal spray,suspension (24 Hour Allergy Relief) 1 spray intranasal DAILY PRN allergy symptoms 11/30/23 [History Last Taken Unknown] sildenafil 100 mg tablet (Viagra) 100 mg PO PRN PRN sexual activity 11/30/23 [History Last Taken Unknown] torsemide 40 mg tablet (Soaanz) 20 mg PO DAILY water pill 11/30/23 [History Last Taken 11/29/23] Allergy/AdvReac Type Severity Reaction Status Date / Time aspirin Allergy Other Verified 11/30/23 04:45 lisinopril Allergy Shortness Verified 11/30/23 04:45 of breath Family History Other Heart disease Surgical History History of ankle fusion History of knee replacement procedure of left knee Hx of lymph node excision Social History household members: spouse Smoking Status: Former smoker alcohol intake: current alcohol intake frequency: 0-2 drinks per day substance use type: does not use ROS Constitutional Constitutional: Denies fever(s) or weight loss Eyes Eyes: Reports systems reviewed and no addt'l complaints, except as documented ENT HEENT: Reports systems reviewed and no addt'l complaints, except as documented Cardiovascular Cardiovascular: Reports dyspnea at rest and dyspnea on exertion; Denies chest pain at rest, chest pain with activity, edema, palpitations or paroxysmal nocturnal dyspnea Respiratory/Chest Respiratory/Chest: Reports shortness of breath at rest and shortness of breath with exertion; Denies dyspnea on exertion or productive cough Gastrointestinal Gastrointestinal: Denies change in bowel habits, nausea, vomiting or weight changes Genitourinary Genitourinary: Denies difficulty urinating Musculoskeletal Musculoskeletal: Denies joint stiffness or muscle weakness Integumentary Integumentary: Denies lesions Neurologic Neurologic: Denies dizziness or syncope Psychiatric Psychiatric: Denies anxiety Endocrine Endocrinology: Denies excessive sweating or fatigue Hematologic/Lymphatic Hematologic/Lymphatic: Denies anemia Allergic/Immunologic Allergic/Immunologic: Denies seasonal rhinorrhea Risk Stratification Risk Stratification Applicable: Yes Age >/= 65: Yes >/= 3 CAD Risk Factors (HTN, HLD, DM, family hx of CAD, or current smoker): No Aspirin Use in the Past 7 Days: No Severe Angina (>/= episodes in 24 hours): No EKG ST Changes >/= 0.5mm: No Positive Cardiac Marker: Yes FOZIA Risk Stratification Score: 2 FOZIA % Risk: 8% Risk Objective Data Vital Signs: Vital Signs Temp Pulse Resp BP Pulse Ox O2 Del Method O2 Flow Rate 98.1 F 81 18 139/71 H 93 Nasal Cannula 4 11/30/23 16:48 11/30/23 16:48 11/30/23 16:48 11/30/23 16:48 11/30/23 16:48 11/30/23 16:48 11/30/23 16:48 Oxygen Flow Rate (L/min) 4 Oxygen Delivery Method Nasal Cannula Weight: 261 lb 0.437 oz Body Mass Index (BMI) 34.4 Intake & Output: Intake and Output for Last 24 Hours 11/28/23 11/29/23 11/30/23 23:59 23:59 23:59 Intake Total 110 / 110 Balance 110 / 110 Lab / Micro Data 11/30/23 05:02 11/30/23 05:02 Labs: Laboratory Results - last 24 hr 11/30/23 05:02: WBC 7.9, RBC 2.87 L, Hgb 7.5 L, Hct 24.2 L, MCV 84.3, MCH 26.1 L, MCHC 31.0 L, RDW Std Deviation 55.6 H, RDW Coeff of Christiano 19.4 H, Plt Count 295, MPV 10.8, Immature Gran % (Auto) 1.000 H, Neut % (Auto) 74.3 H, Lymph % (Auto) 12.4 L, [place] % (Auto) 8.5, Eos % (Auto) 3.0, Baso % (Auto) 0.8, Absolute Neuts (auto) 5.9, Absolute Lymphs (auto) 0.98, Nucleated RBC % 0.4, D-Dimer Quant (PE/DVT) 1.80 H*, Sodium 138, Potassium 3.9, Chloride 109 H, Carbon Dioxide 18.0 L, Anion Gap 11, BUN 50 H, Creatinine 3.12 H, Estim Creat Clear Calc 24.91, Est GFR (MDRD) Af Amer 25 L, Est GFR (MDRD) Non-Af 20 L, BUN/Creatinine Ratio 16.0, Glucose 202 H, Calcium 9.1, Troponin I High Sens 1156 H*, B-Natriuretic Peptide 488.1 H 11/30/23 05:27: Urine Color Yellow, Urine Clarity Clear, Urine pH 5.0, Ur Specific [place] 1.015, Urine Protein 30 H, Urine Glucose (UA) Normal, Urine Ketones Negative, Urine Occult Blood Negative, Urine Nitrite Negative, Urine Bilirubin Negative, Urine Urobilinogen Normal, Ur Leukocyte Esterase Negative, Urine RBC 0 SEEN, Urine WBC 0 SEEN, Ur Squamous Epith Cells 0-5 SEEN, Urine Bacteria 0 SEEN, Urine Mucus 0 SEEN 11/30/23 07:13: Troponin I High Sens 1580 H* 11/30/23 09:31: PT 16.7 H, INR 1.4, APTT 32.5 11/30/23 10:35: Blood Type O POSITIVE, Antibody Screen NEGATIVE, Crossmatch See Detail 11/30/23 11:25: Troponin I High Sens 2781 H* 11/30/23 11:26: POC Glucose 139 H Micro: Microbiology 11/30/23 05:12 Mucosa - Nose SARS-CoV-2, Influenza & RSV (PCR) - Final Cardiology Labs/Tests 11/30/23 05:02: WBC 7.9, RBC 2.87 L, Hgb 7.5 L, Hct 24.2 L, MCV 84.3, MCH 26.1 L, MCHC 31.0 L, Plt Count 295, MPV 10.8, Immature Gran % (Auto) 1.000 H, Neut % (Auto) 74.3 H, Lymph % (Auto) 12.4 L, [place] % (Auto) 8.5, Eos % (Auto) 3.0, Baso % (Auto) 0.8, Absolute Neuts (auto) 5.9, Nucleated RBC % 0.4, D-Dimer Quant (PE/DVT) 1.80 H*, Sodium 138, Potassium 3.9, Chloride 109 H, Carbon Dioxide 18.0 L, Anion Gap 11, BUN 50 H, Creatinine 3.12 H, Est GFR (MDRD) Af Amer 25 L, Est GFR (MDRD) Non-Af 20 L, BUN/Creatinine Ratio 16.0, Glucose 202 H, Calcium 9.1, B-Natriuretic Peptide 488.1 H 11/30/23 05:27: Urine Color Yellow, Urine Clarity Clear, Urine pH 5.0, Ur Specific [place] 1.015, Urine Protein 30 H, Urine Glucose (UA) Normal, Urine Ketones Negative, Urine Occult Blood Negative, Urine Nitrite Negative, Urine Bilirubin Negative, Urine Urobilinogen Normal, Ur Leukocyte Esterase Negative, Urine RBC 0 SEEN, Urine WBC 0 SEEN 11/30/23 09:31: PT 16.7 H, INR 1.4, APTT 32.5 Rhythm: EKG: ECHO: Stress Test: Cardiac Cath: PCI: CT Surgery: Holter monitor: EPS: PPM: CXR: Chest CT Scan: Radiography Diagnostic Testing: Radiology Impression Chest X-Ray 11/30/23 04:53 IMPRESSION: Bibasilar infiltrates with small pleural effusions. Pulmonary edema versus pneumonia. Electronically Signed: Kim Juarez MD at 6:40 EDT Reading Location ID and State: [address] [place] [address] Tel , Service support , Echocardiogram 11/30/23 11:13 Interpretation Summary Normal LV size. Left ventricular systolic function is normal. The estimated ejection fraction is 65 %. Mild focal aortic valve calcification. Peak aortic valve gradient 29 mmHg. Mean aortic valve gradient 17 mmHg. There is moderate mitral annular calcification. Mild (1+) eccentric mitral valve insufficiency. Ordering Physician: Juan Chen Referring Physician: Mark Duval Performed By: Rain Lemus, RDCS, RVT
[2023-11-30 21:23] LABS: Bedside Glucose 192 mg/dL (74-106)
[2023-11-30] MEDS: amLODIPine 5 MG Tablet PO (22:27)
[2023-11-30] MEDS: Atorvastatin Calcium 40 MG Tablet PO (22:27)
[2023-11-30] MEDS: Tamsulosin HCl 0.4 MG Capsule PO (22:27)
[2023-11-30 22:55] LABS: Bedside Glucose 173 mg/dL (74-106)
[2023-11-30] MEDS: BUDESONIDE/GLYCOPYR/FORMOTEROL 10.7 GM HFA.AER.AD 2 GM INHALATION (23:02)
--- NOTE | 2023-11-30 23:02 | CPS ---
Pt was given Breztri inhaler at this time.
[2023-12-01] VITALS (12 sets, daily range): BP systolic 120–133; BP diastolic 51–73; PULSE 54–86; RESP 18–24; TEMP 36.4–37; O2SAT 92–98; BMI 34.6
[2023-12-01] MEDS: Insulin Lispro 100 UNIT/ML INSULN.PEN SC ×3 (06:42→17:54)
[2023-12-01 07:00] LABS: Absolute Lymphocyte Count 0.65 X10^3/uL (0.83-4.51); Absolute Neutrophil Count 5.4 X10^3/uL (2.0-7.7); Basophil# 0.03 X10^3/uL; Basophil% 0.4 % (0-1); Eosinophil# 0.19 X10^3/uL; Eosinophils% 2.6 % (0-5); Hematocrit 24.3 % (40-54); Hemoglobin 7.8 g/dL (13.0-16.5); Lymphocyte # 0.65 X10^3/ul (0.83-4.51); Mean Corp Hgb Conc 32.1 g/dL (32-36); Mean Corpuscular Volume 84.1 fL (80-94); Mean Platelet Vol. 10.9 fl (6.2-12.0); Monocyte# 0.88 X10^3/uL; Monocyte% 12.2 % (0-10); NRBC Flagged by Analyzer 0.6 % (0-5); Neutrophil # 5.43 X10^3/uL (2.7-7.7); Neutrophil % 75.2 % (47-70); Platelet Count 231 K/mm3 (150-450); RBC Distribution Width CV 19.3 % (11.6-14.6); RBC Distribution Width SD 53.9 fl (35.1-43.9); Red Blood Count 2.89 M/mm3 (4.6-6.2); White Blood Count 7.2 K/mm3 (4.4-11.0)
[2023-12-01] MEDS: Albuterol 2.5 MG/3 ML VIAL.NEB. INHALATION ×5 (07:15→23:04)
[2023-12-01 07:25] LABS: Anion Gap 7 (5-15); BUN 47 mg/dL (7-18); BUN/Creat Ratio 18.7 RATIO (10-20); Calcium,Total 8.8 mg/dL (8.5-10.1); Chloride 110 mmol/L (98-107); Cholesterol 109 mg/dL (200); Creatinine, Serum 2.51 mg/dL (0.70-1.30); EST Glomerular Filtration Rate 26 mL/min (>60); Est Glom Filt Rate - Afr Amer 32 mL/min (>60); Estimated Creatinine Clearance 30.59 ml/min; Glucose 183 mg/dL (74-106); High Density Lipoprotein 48 mg/dL; Potassium 3.3 mmol/L (3.5-5.1); Sodium Level 139 mmol/L (136-145); Triglycerides 66 mg/dL; Very Low Density Lipoprotein 13 mg/dL (5-40)
--- NOTE | 2023-12-01 07:48 | PN.HOSP_ITS ---
Reason for Visit Reason for Visit: Diagnoses Non-ST elevation (NSTEMI) myocardial infarction (11/30/23) Nonrheumatic aortic (valve) stenosis (11/30/23) Unspecified atrial fibrillation (11/30/23) Heart failure, unspecified (11/30/23) Subjective Subjective Breathing better. Objective Data Objective Data Vital Signs: Vital Signs Temp Pulse Resp BP Pulse Ox O2 Del Method O2 Flow Rate 37.0 C 75 20 H 125/51 H 95 Nasal Cannula 4 12/01/23 04:15 12/01/23 04:15 12/01/23 04:15 12/01/23 04:15 12/01/23 04:15 12/01/23 04:15 12/01/23 04:15 Oxygen Flow Rate (L/min) 4 Oxygen Delivery Method Nasal Cannula Weight: 118.4 kg Body Mass Index (BMI) 34.4 Intake & Output: Intake and Output for Last 24 Hours 11/29/23 11/30/23 12/01/23 23:59 23:59 23:59 Intake Total 110 / 110 450 / 450 Output Total 1150 / 1150 550 / 550 Balance -1040 / -1040 -100 / -100 Lab / Micro Data 12/01/23 06:10 12/01/23 06:10 Labs: Laboratory Results - last 24 hr 11/30/23 07:13: Troponin I High Sens 1580 H* 11/30/23 09:31: PT 16.7 H, INR 1.4, APTT 32.5 11/30/23 10:35: Blood Type O POSITIVE, Antibody Screen NEGATIVE, Crossmatch See Detail 11/30/23 11:25: Troponin I High Sens 2781 H* 11/30/23 11:26: POC Glucose 139 H 11/30/23 16:19: POC Glucose 192 H 11/30/23 22:15: POC Glucose 173 H 12/01/23 06:10: WBC 7.2, RBC 2.89 L, Hgb 7.8 L, Hct 24.3 L, MCV 84.1, MCH 27.0, MCHC 32.1, RDW Std Deviation 53.9 H, RDW Coeff of Christiano 19.3 H, Plt Count 231, MPV 10.9, Immature Gran % (Auto) 0.600, Neut % (Auto) 75.2 H, Lymph % (Auto) 9.0 L, [place] % (Auto) 12.2 H, Eos % (Auto) 2.6, Baso % (Auto) 0.4, Absolute Neuts (auto) 5.4, Absolute Lymphs (auto) 0.65 L, Nucleated RBC % 0.6, Sodium 139, Potassium 3.3 L, Chloride 110 H, Carbon Dioxide 22.0, Anion Gap 7, BUN 47 H, Creatinine 2.51 H, Estim Creat Clear Calc 30.59, Est GFR (MDRD) Af Amer 32 L, Est GFR (MDRD) Non-Af 26 L, BUN/Creatinine Ratio 18.7, Glucose 183 H, Calcium 8.8, Triglycerides 66, Cholesterol 109, LDL Cholesterol 48, VLDL Cholesterol 13, HDL Cholesterol 48 Micro: Microbiology 11/30/23 05:12 Mucosa - Nose SARS-CoV-2, Influenza & RSV (PCR) - Final Radiography Diagnostic Testing: Radiology Impression Echocardiogram 11/30/23 11:13 Interpretation Summary Normal LV size. Left ventricular systolic function is normal. The estimated ejection fraction is 65 %. Mild focal aortic valve calcification. Peak aortic valve gradient 29 mmHg. Mean aortic valve gradient 17 mmHg. There is moderate mitral annular calcification. Mild (1+) eccentric mitral valve insufficiency. Ordering Physician: Juan Chen Referring Physician: Mark Duval Performed By: Rain Lemus, HAKAN, RVT Physical Exam Const alert and no apparent distress Resp normal respiratory effort, no retractions, no use of accessory muscles and clear to auscultation bilaterally Cardio regular rate, regular rhythm, S1 normal heart sound and S2 normal heart sound Extremity normal to inspection and full ROM General Extremity: edema bilateral lower extremity Details: mild Neuro Sensorium / Orientation: awake and alert Assessment & Plan Assessment/Plan (1) Non-ST elevated myocardial infarction (non-STEMI): PLAN: Plan NSTEMI * unclear type * medical mgmt for now. High risk for PCI given CKD. * check echo * cardiology consult Acute HFpEF * EF 65% * furosemide cautiously * check echo * hold losartan given CKD * Check [facility] records. Chronic anemia * he has undergone an extensive work up with EGD, colonoscopy and capsule endoscopy that has been unremarkable. He is scheduled to have those performed again in December. * Transfuse to goal Hg of 8. Ordered transfusion. * Pt scheduled to have iron sucrose 12/01. Infused on 11/29. CKD 4 * creatinine improved from 3.12 to 2.51 * monitor closely while on furosemide * may need nephrology input * no need for BED OPERATOR at this time. * hold losartan Afib * chronic * on apixaban. * sees EP at [facility] and it has been mentioned that he may need a Watchman's device Chronic conditions: * DM2: hold oral meds. SSI * gout: continue allopurinol * HTN: continue amlodipine VTE prophylaxis: not indicated as he is already anticoagulated. Code: Full. Charges/Coding Visit Charges Inpatient E&M: 66416 Subs Hosp L2
--- NOTE | 2023-12-01 07:58 | PN.CARD_ITS ---
Subjective Subjective Patient seen and evaluated. He says that he feels much better. Objective Data Vital Signs: Vital Signs Temp Pulse Resp BP Pulse Ox O2 Del Method O2 Flow Rate 98.6 F 75 20 H 125/51 H 95 Nasal Cannula 4 12/01/23 04:15 12/01/23 04:15 12/01/23 04:15 12/01/23 04:15 12/01/23 04:15 12/01/23 04:15 12/01/23 04:15 Oxygen Flow Rate (L/min) 4 Oxygen Delivery Method Nasal Cannula Weight: 261 lb 0.437 oz Body Mass Index (BMI) 34.4 Intake & Output: Intake and Output for Last 24 Hours 11/29/23 11/30/23 12/01/23 23:59 23:59 23:59 Intake Total 110 / 110 450 / 450 Output Total 1150 / 1150 550 / 550 Balance -1040 / -1040 -100 / -100 Lab / Micro Data 12/01/23 06:10 12/01/23 06:10 Labs: Laboratory Results - last 24 hr 11/30/23 07:13: Troponin I High Sens 1580 H* 11/30/23 09:31: PT 16.7 H, INR 1.4, APTT 32.5 11/30/23 10:35: Blood Type O POSITIVE, Antibody Screen NEGATIVE, Crossmatch See Detail 11/30/23 11:25: Troponin I High Sens 2781 H* 11/30/23 11:26: POC Glucose 139 H 11/30/23 16:19: POC Glucose 192 H 11/30/23 22:15: POC Glucose 173 H 12/01/23 06:10: WBC 7.2, RBC 2.89 L, Hgb 7.8 L, Hct 24.3 L, MCV 84.1, MCH 27.0, MCHC 32.1, RDW Std Deviation 53.9 H, RDW Coeff of Christiano 19.3 H, Plt Count 231, MPV 10.9, Immature Gran % (Auto) 0.600, Neut % (Auto) 75.2 H, Lymph % (Auto) 9.0 L, [place] % (Auto) 12.2 H, Eos % (Auto) 2.6, Baso % (Auto) 0.4, Absolute Neuts (auto) 5.4, Absolute Lymphs (auto) 0.65 L, Nucleated RBC % 0.6, Sodium 139, Potassium 3.3 L, Chloride 110 H, Carbon Dioxide 22.0, Anion Gap 7, BUN 47 H, Creatinine 2.51 H, Estim Creat Clear Calc 30.59, Est GFR (MDRD) Af Amer 32 L, Est GFR (MDRD) Non-Af 26 L, BUN/Creatinine Ratio 18.7, Glucose 183 H, Calcium 8.8, Triglycerides 66, Cholesterol 109, LDL Cholesterol 48, VLDL Cholesterol 13, HDL Cholesterol 48 Micro: Microbiology 11/30/23 05:12 Mucosa - Nose SARS-CoV-2, Influenza & RSV (PCR) - Final Cardiology Labs/Tests 11/30/23 09:31: PT 16.7 H, INR 1.4, APTT 32.5 12/01/23 06:10: WBC 7.2, RBC 2.89 L, Hgb 7.8 L, Hct 24.3 L, MCV 84.1, MCH 27.0, MCHC 32.1, Plt Count 231, MPV 10.9, Immature Gran % (Auto) 0.600, Neut % (Auto) 75.2 H, Lymph % (Auto) 9.0 L, [place] % (Auto) 12.2 H, Eos % (Auto) 2.6, Baso % (Auto) 0.4, Absolute Neuts (auto) 5.4, Nucleated RBC % 0.6, Sodium 139, Pota ssium 3.3 L, Chloride 110 H, Carbon Dioxide 22.0, Anion Gap 7, BUN 47 H, Creatinine 2.51 H, Est GFR (MDRD) Af Amer 32 L, Est GFR (MDRD) Non-Af 26 L, BUN/Creatinine Ratio 18.7, Glucose 183 H, Calcium 8.8, Triglycerides 66, Cholesterol 109, LDL Cholesterol 48, VLDL Cholesterol 13, HDL Cholesterol 48 Rhythm: EKG: ECHO: Stress Test: Cardiac Cath: PCI: CT Surgery: Holter monitor: EPS: PPM: CXR: Chest CT Scan: Radiography Diagnostic Testing: Radiology Impression Echocardiogram 11/30/23 11:13 Interpretation Summary Normal LV size. Left ventricular systolic function is normal. The estimated ejection fraction is 65 %. Mild focal aortic valve calcification. Peak aortic valve gradient 29 mmHg. Mean aortic valve gradient 17 mmHg. There is moderate mitral annular calcification. Mild (1+) eccentric mitral valve insufficiency. Ordering Physician: Juan Chen Referring Physician: Mark Duval Performed By: Rain Lemus, HAKAN, RVT Physical Exam Const alert, oriented x3 and no apparent distress General Appearance: cooperative HEENT hearing grossly normal bilaterally Head and Scalp: atraumatic Eyes EOMs intact bilaterally Neck General: normal visual inspection Chest inspection of chest normal and palpation of chest normal Resp normal respiratory effort Auscultation: clear to auscultation bilaterally Cardio regular rate, regular rhythm, S1 normal heart sound and S2 normal heart sound Jugular Venous Distention: JVD Heart Sounds: murmur GI normal to inspection, nondistended, normoactive bowel sounds Extremity normal capillary refill and no pedal edema Peripheral Pulses: Yes pulses 2+ throughout and femoral pulses present Skin no rashes or lesions noted Neuro oriented x3 and CN's II-XII intact bilaterally Psych Appearance: grossly normal and appropriate Assessment & Plan Assessment/Plan (1) Congestive heart failure: PLAN: He does have evidence of congestive heart failure with preserved ejection fraction. The above is likely secondary to valvular heart disease exacerbated by his severe anemia. Coronary disease cannot be completely excluded. He does have significant renal dysfunction which is also impairing fluid efflux. * The echocardiogram performed today did confirm his preserved ejection fraction and his mild to moderate aortic stenosis. * Recommendation and will be to continue with diuresis with intravenous Lasix. * Ideally blood transfusion will help with benefit him as well (2) Non-ST elevated myocardial infarction (non-STEMI): PLAN: He does have elevated cardiac enzymes likely secondary to non-ST elevation myocardial infarction and demand ischemia. I did suggest to him that with his worsening renal function we are not particularly enthused to perform any dye related procedure at this particular time. Will continue with conservative and expectant management with beta-mustapha and nitrates as appropriate Will also continue high intensity statin I would recommend discontinuing the clopidogrel for now. (3) Aortic stenosis: PLAN: The above appears to be stable from previous history and there is no intervention planned at this particular time. Thank you for allowing me to participate in the care of your patient. Please don't hesitate to call if any issues arise. (4) Atrial fibrillation: PLAN: Patient appears to have persistent atrial fibrillation with a controlled ventricular response rate. The plan is to continue the current medical therapy. He is on low-dose anticoagulation with Eliquis 2.5 mg a day which will be continued for now.
[2023-12-01] MEDS: Hydroxychloroquine 200 MG Tablet PO (08:55)
[2023-12-01] MEDS: Metoprolol Tartrate 25 MG Tablet 12.5 MG PO ×2 (08:55→21:45)
[2023-12-01] MEDS: Pantoprazole Sodium 40 MG Tablet PO (08:56)
[2023-12-01] MEDS: Furosemide 40 MG/4 ML Vial IV ×2 (08:56→17:53)
[2023-12-01] MEDS: BUDESONIDE/GLYCOPYR/FORMOTEROL 10.7 GM HFA.AER.AD 2 GM INHALATION ×2 (08:57→21:44)
[2023-12-01] MEDS: Allopurinol 300 MG Tablet PO (08:59)
[2023-12-01] MEDS: APIXABAN 2.5 MG TABLET (WCH) PO ×2 (11:31→21:46)
[2023-12-01 13:51] LABS: Bedside Glucose 224 mg/dL (74-106)
[2023-12-01 13:51] LABS: Bedside Glucose 178 mg/dL (74-106)
[2023-12-01 17:44] LABS: Bedside Glucose 171 mg/dL (74-106)
[2023-12-01] MEDS: Atorvastatin Calcium 40 MG Tablet PO (21:45)
[2023-12-01] MEDS: amLODIPine 5 MG Tablet PO (21:45)
[2023-12-01] MEDS: Tamsulosin HCl 0.4 MG Capsule PO (21:46)
[2023-12-02] VITALS (18 sets, daily range): BP systolic 128–155; BP diastolic 56–72; PULSE 79–93; RESP 16–23; TEMP 36.6–36.9; O2SAT 93–97; BMI 34.4
[2023-12-02 00:53] LABS: Bedside Glucose 244 mg/dL (74-106)
[2023-12-02] MEDS: Insulin Lispro 100 UNIT/ML INSULN.PEN SC ×3 (06:18→16:09)
[2023-12-02 06:41] LABS: Absolute Lymphocyte Count 0.55 X10^3/uL (0.83-4.51); Absolute Neutrophil Count 4.5 X10^3/uL (2.0-7.7); Basophil# 0.04 X10^3/uL; Basophil% 0.7 % (0-1); Eosinophils% 3.3 % (0-5); Hematocrit 25.1 % (40-54); Hemoglobin 7.7 g/dL (13.0-16.5); Lymphocyte # 0.55 X10^3/ul (0.83-4.51); Mean Corp Hgb Conc 30.7 g/dL (32-36); Mean Corpuscular Hgb 26.1 pg (27.0-32.0); Mean Corpuscular Volume 85.1 fL (80-94); Mean Platelet Vol. 11.7 fl (6.2-12.0); Monocyte# 0.76 X10^3/uL; Monocyte% 12.4 % (0-10); NRBC Flagged by Analyzer 0.5 % (0-5); Neutrophil # 4.53 X10^3/uL (2.7-7.7); Neutrophil % 73.9 % (47-70); POSITIVE DIFFERENTIAL YES; Platelet Count 235 K/mm3 (150-450); RBC Distribution Width CV 19.9 % (11.6-14.6); RBC Distribution Width SD 56.2 fl (35.1-43.9); Red Blood Count 2.95 M/mm3 (4.6-6.2); White Blood Count 6.1 K/mm3 (4.4-11.0)
[2023-12-02] MEDS: Albuterol 2.5 MG/3 ML VIAL.NEB. INHALATION ×4 (06:50→19:02)
[2023-12-02 07:03] LABS: Anion Gap 12 (5-15); BUN 47 mg/dL (7-18); Chloride 106 mmol/L (98-107); Creatinine, Serum 2.47 mg/dL (0.70-1.30); EST Glomerular Filtration Rate 27 mL/min (>60); Est Glom Filt Rate - Afr Amer 32 mL/min (>60); Estimated Creatinine Clearance 30.99 ml/min; Glucose 220 mg/dL (74-106); Potassium 3.3 mmol/L (3.5-5.1); Sodium Level 140 mmol/L (136-145)
[2023-12-02 07:11] LABS: Bedside Glucose 208 mg/dL (74-106)
--- NOTE | 2023-12-02 07:36 | PN.HOSP_ITS ---
Reason for Visit Reason for Visit: Diagnoses Non-ST elevation (NSTEMI) myocardial infarction (11/30/23) Nonrheumatic aortic (valve) stenosis (11/30/23) Unspecified atrial fibrillation (11/30/23) Heart failure, unspecified (11/30/23) Subjective Subjective Feeling well. Decreasing LE edema. Objective Data Objective Data Vital Signs: Vital Signs Temp Pulse Resp BP Pulse Ox O2 Del Method O2 Flow Rate 36.6 C 84 22 H 132/72 H 93 Nasal Cannula 2 12/02/23 03:48 12/02/23 06:50 12/02/23 06:50 12/02/23 03:48 12/02/23 06:54 12/02/23 06:54 12/02/23 06:54 Oxygen Flow Rate (L/min) 2 Oxygen Delivery Method Nasal Cannula Weight: 117.7 kg Body Mass Index (BMI) 34.4 Intake & Output: Intake and Output for Last 24 Hours 11/30/23 12/01/23 12/02/23 23:59 23:59 23:59 Intake Total 110 / 110 1170 / 1170 Output Total 1150 / 1150 1700 / 1700 300 / 300 Balance -1040 / -1040 -530 / -530 -300 / -300 Lab / Micro Data 12/02/23 05:33 12/02/23 05:33 Labs: Laboratory Results - last 24 hr 12/01/23 06:41: POC Glucose 178 H 12/01/23 11:23: POC Glucose 224 H 12/01/23 17:25: POC Glucose 171 H 12/01/23 21:50: POC Glucose 244 H 12/02/23 05:33: WBC 6.1, RBC 2.95 L, Hgb 7.7 L, Hct 25.1 L, MCV 85.1, MCH 26.1 L , MCHC 30.7 L, RDW Std Deviation 56.2 H, RDW Coeff of Christiano 19.9 H, Plt Count 235, MPV 11.7, Immature Gran % (Auto) 0.700, Neut % (Auto) 73.9 H, Lymph % (Auto) 9.0 L, [place] % (Auto) 12.4 H, Eos % (Auto) 3.3, Baso % (Auto) 0.7, Absolute Neuts (a uto) 4.5, Absolute Lymphs (auto) 0.55 L, Nucleated RBC % 0.5, Sodium 140, Potassium 3.3 L, Chloride 106, Carbon Dioxide 22.0, Anion Gap 12, BUN 47 H, Creatinine 2.47 H, Estim Creat Clear Calc 30.99, Est GFR (MDRD) Af Amer 32 L, Est GFR (MDRD) Non-Af 27 L, BUN/Creatinine Ratio 19.0, Glucose 220 H, Calcium 9.0 12/02/23 06:17: POC Glucose 208 H Micro: Microbiology 11/30/23 05:12 Mucosa - Nose SARS-CoV-2, Influenza & RSV (PCR) - Final Physical Exam Const alert and no apparent distress HEENT head/scalp atraumatic and moist oral mucous membranes Resp normal respiratory effort, no retractions, no use of accessory muscles and clear to auscultation bilaterally Cardio regular rate, regular rhythm, S1 normal heart sound and S2 normal heart sound GI normal to inspection, nondistended, normoactive bowel sounds, soft to palpation, non-tender and non-distended Neuro Sensorium / Orientation: awake and alert Assessment & Plan Assessment/Plan (1) Non-ST elevated myocardial infarction (non-STEMI): PLAN: Plan NSTEMI * suspect type 2 given CHF exacerbation * medical mgmt for now. High risk for PCI given CKD. * check echo * not a candidate for catheterization given CKD Acute HFpEF * EF 65% * furosemide cautiously * hold losartan given CKD Chronic anemia * Suspect pt has anemia of chronic disease. * he has undergone an extensive work up with EGD, colonoscopy and capsule endoscopy that has been unremarkable. He is scheduled to have those repeated again in December. * Transfuse to goal Hg of 8. Transfused 1 unit PRBC. Administer another unit. * Pt infused iron sucrose on 11/29 and 12/01. * Pt does take apixaban. Previously, pt has elected to take apixaban since his GI work up has previously been negative. CKD 4 * creatinine improved from 3.12 to 2.4 * monitor closely while on furosemide * may need nephrology input * no need for TEMPLATE MAKER at this time. * hold losartan Afib * chronic * on apixaban. * sees EP at [facility] and it has been mentioned that he may need a Watchman's device Chronic conditions: * DM2: hold oral meds. SSI * gout: continue allopurinol * HTN: continue amlodipine VTE prophylaxis: not indicated as he is already anticoagulated. Code: Full. Disposition: Anticipate ready for dischare in 24-48h. DW patient's at [facility]. Charges/Coding Visit Charges Inpatient E&M: 98800 Subs Hosp L2
[2023-12-02] MEDS: Furosemide 40 MG/4 ML Vial IV ×2 (08:26→17:30)
[2023-12-02] MEDS: Potassium Chloride Oral Tablet 20 MEQ 40 MEQ PO (08:27)
[2023-12-02] MEDS: Pantoprazole Sodium 40 MG Tablet PO (08:28)
[2023-12-02] MEDS: Hydroxychloroquine 200 MG Tablet PO (08:28)
[2023-12-02] MEDS: Metoprolol Tartrate 25 MG Tablet 12.5 MG PO ×2 (08:28→20:55)
[2023-12-02] MEDS: Allopurinol 300 MG Tablet PO (08:28)
[2023-12-02] MEDS: APIXABAN 2.5 MG TABLET (WCH) PO ×2 (08:29→20:54)
[2023-12-02] MEDS: Sodium Ferric Gluconat/Sucrose 125 MG in 0.9% Normal Saline (100mL Bag) 100 ML 110 MG IV (08:29)
[2023-12-02] MEDS: BUDESONIDE/GLYCOPYR/FORMOTEROL 10.7 GM HFA.AER.AD 2 GM INHALATION ×2 (08:30→20:54)
--- NOTE | 2023-12-02 10:25 | PN.CARD_ITS ---
<Statement entered by Katelin Sears MD - 12/02/23 16:02> Pt seen & evaluated w/ARUN. I personally interviewed & exam the pt. I was involved in all aspects of pt's orders, interpretation of results & treatment Subjective Subjective Pt seen and examined. Feels better. Is less SOB and feels his swelling has improved. Objective Data Vital Signs: Vital Signs Temp Pulse Resp BP Pulse Ox O2 Del Method O2 Flow Rate 97.8 F 83 18 128/63 H 95 Nasal Cannula 2 12/02/23 08:36 12/02/23 08:36 12/02/23 08:36 12/02/23 08:36 12/02/23 08:36 12/02/23 08:36 12/02/23 08:36 Oxygen Flow Rate (L/min) 2 Oxygen Delivery Method Nasal Cannula Weight: 259 lb 7.745 oz Body Mass Index (BMI) 34.4 Intake & Output: Intake and Output for Last 24 Hours 11/30/23 12/01/23 12/02/23 23:59 23:59 23:59 Intake Total 110 / 110 1170 / 1170 Output Total 1150 / 1150 1700 / 1700 300 / 300 Balance -1040 / -1040 -530 / -530 -300 / -300 Lab / Micro Data 12/02/23 05:33 12/02/23 05:33 Labs: Laboratory Results - last 24 hr 11/30/23 10:35: Crossmatch See Detail 12/01/23 06:41: POC Glucose 178 H 12/01/23 11:23: POC Glucose 224 H 12/01/23 17:25: POC Glucose 171 H 12/01/23 21:50: POC Glucose 244 H 12/02/23 05:33: WBC 6.1, RBC 2.95 L, Hgb 7.7 L, Hct 25.1 L, MCV 85.1, MCH 26.1 L , MCHC 30.7 L, RDW Std Deviation 56.2 H, RDW Coeff of Christiano 19.9 H, Plt Count 235, MPV 11.7, Immature Gran % (Auto) 0.700, Neut % (Auto) 73.9 H, Lymph % (Auto) 9.0 L, [place] % (Auto) 12.4 H, Eos % (Auto) 3.3, Baso % (Auto) 0.7, Absolute Neuts (auto) 4.5, Absolute Lymphs (auto) 0.55 L, Nucleated RBC % 0.5, Sodium 140, Potassium 3.3 L, Chloride 106, Carbon Dioxide 22.0, Anion Gap 12, BUN 47 H, Creatinine 2.47 H, Estim Creat Clear Calc 30.99, Est GFR (MDRD) Af Amer 32 L, Est GFR (MDRD) Non-Af 27 L, BUN/Creatinine Ratio 19.0, Glucose 220 H, Calcium 9.0 12/02/23 06:17: POC Glucose 208 H Cardiology Labs/Tests 12/02/23 05:33: WBC 6.1, RBC 2.95 L, Hgb 7.7 L, Hct 25.1 L, MCV 85.1, MCH 26.1 L , MCHC 30.7 L, Plt Count 235, MPV 11.7, Immature Gran % (Auto) 0.700, Neut % (Auto) 73.9 H, Lymph % (Auto) 9.0 L, [place] % (Auto) 12.4 H, Eos % (Auto) 3.3, Baso % (Auto) 0.7, Absolute Neuts (auto) 4.5, Nucleated RBC % 0.5, Sodium 140, Potassium 3.3 L, Chloride 106, Carbon Dioxide 22.0, Anion Gap 12, BUN 47 H, Creatinine 2.47 H, Est GFR (MDRD) Af Amer 32 L, Est GFR (MDRD) Non-Af 27 L, BUN/Creatinine Ratio 19.0, Glucose 220 H, Calcium 9.0 Rhythm: Afib Physical Exam Const alert, oriented x3 and no apparent distress General Appearance: cooperative HEENT hearing grossly normal bilaterally Head and Scalp: atraumatic Eyes EOMs intact bilaterally Neck General: normal visual inspection Chest inspection of chest normal and palpation of chest normal Resp normal respiratory effort Auscultation: diminished lung sounds bilateral Cardio S1 normal heart sound and S2 normal heart sound Jugular Venous Distention: JVD Rhythm: abnormal rhythm irregularly irregular Heart Sounds: murmur GI normal to inspection, nondistended, normoactive bowel sounds Extremity normal capillary refill and no pedal edema Skin no rashes or lesions noted Neuro oriented x3 and CN's II-XII intact bilaterally Psych Appearance: grossly normal and appropriate Assessment & Plan Assessment/Plan (1) Non-ST elevated myocardial infarction (non-STEMI): (2) Congestive heart failure: (3) Aortic stenosis: (4) Atrial fibrillation: PLAN: P PLAN: Plan NSTEMI: Likely demand ischemia from his anemia. Heart cath at this time is not recommended d/t his renal function. Recommend medical management with BB, nitrates, statin. With his Anemia, he is not on Plavix. CHF: Likely related to anemia. His EF is preserved. The above is likely secondary to valvular heart disease exacerbated by his severe anemia. Coronary disease cannot be completely excluded, but his his renal function heart cath not recommended at this time. Continue with his diuretics, would consider switching to PO and monitoring his renal function. Having a Hgb closer to 10 would be helpful. Aortic Stenosis: reviewed echo, this is mild to moderate Afib: rate is controlled. He on low dose eliquis. Charges/Coding Visit Charges Inpatient E&M: 26748 [facility] Hosp L3
[2023-12-02 12:05] LABS: Bedside Glucose 215 mg/dL (74-106)
--- NOTE | 2023-12-02 12:40 | CASEMGMT ---
JARRET OROZCO assessment: RN ERNESTO to room to meet with patient for initial transition planning/care coordination assessment. JARRET OROZCO introduced self and role at [facility], pt voices understanding and consents to assessment. Pt resting in bed in no distress. @ bedside. Pt is A/O and answers all questions appropriately. Care providers, pharmacy, and demographics verified. PCP: Simin Specialists: Flip, pod; Francheska, cardio; Pankaj, onc; [place] industrial gas [facility]; MACK Toribio @ [facility], Werner pulalexander/[facility] [place] Preferred Pharmacy: [facility] [place] Insurance: [employer] A/B, Commercial Prescription Benefit: yes Living Will/HPOA: Has both LW and HCPOA, who is his , Leandra VARELAOK: Leandra Howell, . One son and one step-son Living Arrangements: Pt lives with in apartment with basement and states no concerns at home. Pt is independent with ADL's. assists w/tying his shoes. does meals/home mgnt tasks. Transportation: Pt states drives self and states no transportation concerns. DME: Pt states has a CPAP thru [employer], pulse, ox, BP monitor, cane, functioning glucometer w/sufficient supplies. He reports having all medications needed prior to admission. No home O2 and no nebulizer. states if he qualifies for O2 @ dc, 1st preference is [facility]. If pt discharges over the w/e and [facility] not able to do weekend O2 set-up, then [facility] is 2nd choices. and states no need for any further DME. HHC/SNF: Pt states has had HHC in the past but has not been to SNF. He has went to [facility] Rehab in the past. Pt is interested in script for OP therapy. Cristin, FISH HATCHERY INSPECTOR CM, made aware. Pt and aware he can take to location of choice. Pt states no further concerns with going home at time of discharge. Pt is retired. Pt states does not smoke cigarettes but does drink ETOH daily, about 5 x's/day, stating it is either wine, beer, or liquor. Fidelia WHEAT, made aware. Pt declines wanting resources to stop drinking. Pt states no further concerns/needs. CM to follow for any further discharge planning/needs. Advised pt to ask for CM if any further questions/concerns/needs arise, voices understanding. Plan: Home Follow for possible O2 @ dc Savanna MILLER RN CM
[2023-12-02 16:29] LABS: Bedside Glucose 220 mg/dL (74-106)
[2023-12-02] MEDS: Atorvastatin Calcium 40 MG Tablet PO (20:54)
[2023-12-02] MEDS: amLODIPine 5 MG Tablet PO (20:55)
[2023-12-02] MEDS: Tamsulosin HCl 0.4 MG Capsule PO (20:56)
[2023-12-03] VITALS (8 sets, daily range): BP systolic 129–142; BP diastolic 58–59; PULSE 79–89; RESP 16–20; TEMP 36.5–36.8; O2SAT 89–97; BMI 34.3
[2023-12-03] MEDS: Insulin Lispro 100 UNIT/ML INSULN.PEN SC ×2 (06:32→12:10)
[2023-12-03 06:57] LABS: Bedside Glucose 161 mg/dL (74-106)
[2023-12-03] MEDS: Albuterol 2.5 MG/3 ML VIAL.NEB. INHALATION ×2 (07:22→11:16)
[2023-12-03 07:53] LABS: Absolute Lymphocyte Count 0.83 X10^3/uL (0.83-4.51); Absolute Neutrophil Count 3.5 X10^3/uL (2.0-7.7); Basophil# 0.02 X10^3/uL; Basophil% 0.4 % (0-1); Eosinophil# 0.25 X10^3/uL; Eosinophils% 4.6 % (0-5); Hematocrit 26.8 % (40-54); Hemoglobin 8.7 g/dL (13.0-16.5); Lymphocyte # 0.83 X10^3/ul (0.83-4.51); Lymphocyte % 15.2 % (19-41); Mean Corp Hgb Conc 32.5 g/dL (32-36); Mean Corpuscular Hgb 27.7 pg (27.0-32.0); Mean Corpuscular Volume 85.4 fL (80-94); Mean Platelet Vol. 10.9 fl (6.2-12.0); Monocyte# 0.87 X10^3/uL; Monocyte% 15.9 % (0-10); NRBC Flagged by Analyzer 0 % (0-5); Neutrophil # 3.47 X10^3/uL (2.7-7.7); Neutrophil % 63.5 % (47-70); Platelet Count 188 K/mm3 (150-450); RBC Distribution Width CV 19.7 % (11.6-14.6); RBC Distribution Width SD 56.1 fl (35.1-43.9); Red Blood Count 3.14 M/mm3 (4.6-6.2); White Blood Count 5.5 K/mm3 (4.4-11.0)
[2023-12-03 08:21] LABS: Anion Gap 8 (5-15); BUN 37 mg/dL (7-18); BUN/Creat Ratio 16.6 RATIO (10-20); Calcium,Total 8.6 mg/dL (8.5-10.1); Chloride 107 mmol/L (98-107); Creatinine, Serum 2.23 mg/dL (0.70-1.30); EST Glomerular Filtration Rate 30 mL/min (>60); Est Glom Filt Rate - Afr Amer 36 mL/min (>60); Glucose 176 mg/dL (74-106); Potassium 3.5 mmol/L (3.5-5.1); Sodium Level 137 mmol/L (136-145)
[2023-12-03] MEDS: BUDESONIDE/GLYCOPYR/FORMOTEROL 10.7 GM HFA.AER.AD 2 GM INHALATION (09:43)
[2023-12-03] MEDS: APIXABAN 2.5 MG TABLET (WCH) PO (09:44)
[2023-12-03] MEDS: Furosemide 40 MG/4 ML Vial IV (09:44)
[2023-12-03] MEDS: Metoprolol Tartrate 25 MG Tablet 12.5 MG PO (09:44)
[2023-12-03] MEDS: Allopurinol 300 MG Tablet PO (09:45)
[2023-12-03] MEDS: Hydroxychloroquine 200 MG Tablet PO (09:45)
[2023-12-03] MEDS: Pantoprazole Sodium 40 MG Tablet PO (09:45)
[2023-12-03 11:41] LABS: Bedside Glucose 232 mg/dL (74-106)
--- NOTE | 2023-12-03 13:26 | DCINST_ITS ---
Discharge Instructions Diet Discharge Diet: No restrictions Activity Discharge Activity: Return to Normal Activity Follow Up Care Test Results: Test results from this visit will be discussed in further detail at your follow- up appointment, if applicable. Discharge Plan Admission Admit Date/Time: 11/30/23 08:32 Primary Reason for Your Visit: congestive heart failure Attending Provider: Timoteo Valle Primary Care Provider: Mark Duval Consulting Providers: Jermaine Sidhu; Juan Chen Discharge Orders/Prescriptions Prescriptions: New amlodipine 5 mg Tablet 5 mg PO QHS Qty: 30 0RF Continued atorvastatin 40 MG tablet 40 mg PO QHS glimepiride 2 MG tablet 2 mg PO DAILY tamsulosin 0.4 MG capsule 0.4 mg PO DAILY hydroxychloroquine 200 MG tablet 200 mg PO DAILY metoprolol tartrate 25 MG tablet 12.5 mg PO BID pantoprazole 40 MG tablet,delayed release (DR/EC) 40 mg PO DAILY sitagliptin phosphate 50 MG tablet 50 mg PO DAILY albuterol sulfate 90 mcg/actuation HFA aerosol inhaler 2 puff INHALATION Q4H PRN (Reason: shortness of breath or wheezing) Eliquis 2.5 mg tablet 2.5 mg PO BID allopurinol 300 mg tablet 300 mg PO DAILY Patient Comments: PT TAKES 300MG AND 100MG AT THE SAME TIME TO EQUAL TOTAL DOSE OF 400MG allopurinol 100 mg tablet 100 mg PO DAILY Patient Comments: PT TAKES 300MG AND 100MG AT THE SAME TIME TO EQUAL TOTAL DOSE OF 400MG colchicine 0.6 mg tablet 0.6 mg PO DAILY Breztri Aerosphere 160-9-4.8 mcg/actuation HFA aerosol inhaler 2 inh inhalation BID fluticasone propionate [24 Hour Allergy Relief] 50 mcg/actuation spray,suspension 1 spray intranasal DAILY PRN (Reason: allergy symptoms) sildenafil [Viagra] 100 mg tablet 100 mg PO PRN PRN (Reason: sexual activity) Patient Comments: PT TAKES ONLY IF NEEDED Rx Instructions: administer 30 minutes to 4 hours before activity Changed losartan 100 MG tablet 50 mg PO DAILY Qty: 1 0RF Soaanz 40 mg tablet 20 mg PO BID Qty: 1 0RF Discontinued amlodipine 5 MG tablet 10 mg PO QHS Referrals / Follow Up: Mark Duval MD [Primary Care Provider] - Within 2 Weeks Disposition Disposition (needs filled in before D/C Order can be placed): Home, Self Care
--- NOTE | 2023-12-03 14:33 | PCM.DC.SUM ---
Providers Date of Admission: 11/30/23 Date of Discharge: 12/03/23 Primary Care Physician: Dr. Mark Duval MD Consultations 11/30/23 11:13 Consult: Cardiology Routine Consulting Provider: Jermaine Sidhu Reason for Consult: Chest Pain EMERGENT Consult: No MD Notified: Yes Date Notified: 11/30/23 Time Notified: 08:41 Method of Notification: Text Reason For Visit: NSTEMI Diagnosis Discharge Diagnosis (1) Non-ST elevated myocardial infarction (non-STEMI): Status: Acute Code(s): I21.4 - Non-ST elevation (NSTEMI) myocardial infarction Plan 1. Non-STEMI #2 new onset acute congestive heart failure with preserved ejection fraction #3 chronic anemia-etiology unclear #4 permanent atrial fibrillation #5 type 2 diabetes #6 essential hypertension #7 hypoxia secondary to #2 #8 chronic kidney disease stage IIIb Medications at Discharge Home Medications atorvastatin 40 mg tablet 40 mg PO QHS cholesterol 03/26/19 glimepiride 2 mg tablet 2 mg PO DAILY diabetes 03/26/19 hydroxychloroquine 200 mg tablet 200 mg PO DAILY gout 03/26/19 metoprolol tartrate 25 mg tablet 12.5 mg PO BID bp 03/26/19 pantoprazole 40 mg tablet,delayed release 40 mg PO DAILY gerd 03/26/19 sitagliptin phosphate 50 mg tablet 50 mg PO DAILY diabetes 03/26/19 tamsulosin 0.4 mg capsule 0.4 mg PO DAILY prostate 03/26/19 albuterol sulfate 90 mcg/actuation aerosol inhaler 2 puff inhalation Q4H PRN shortness of breath or wheezing 11/30/23 allopurinol 100 mg tablet 100 mg PO DAILY 11/30/23 allopurinol 300 mg tablet 300 mg PO DAILY 11/30/23 apixaban 2.5 mg tablet (Eliquis) 2.5 mg PO BID 11/30/23 budesonide 160 mcg-glycopyr 9 mcg-formot 4.8 mcg/actuation HFA inhaler (Breztri Aerosphere) 2 inh inhalation BID 11/30/23 colchicine 0.6 mg tablet 0.6 mg PO DAILY GOUT 11/30/23 fluticasone propionate 50 mcg/actuation nasal spray,suspension (24 Hour Allergy Relief) 1 spray intranasal DAILY PRN allergy symptoms 11/30/23 sildenafil 100 mg tablet (Viagra) 100 mg PO PRN PRN sexual activity 11/30/23 amlodipine 5 mg tablet 5 mg PO QHS #30 tabs 12/03/23 losartan 100 mg tablet 50 mg (1/2 x 100 mg) PO DAILY bp #1 TAB 12/03/23 torsemide 40 mg tablet (Soaanz) 20 mg (1/2 x 40 mg) PO BID water pill #1 TAB 12/03/23 Hospital Course Operations None Procedures 2-D Echocardiogram Summary of Care Provided Minutes Spent on Discharge: 33 Hospital Course: This 83-year-old white male was seen in the emergency room at [facility] with complaints of shortness of breath. Workup in the emergency room showed the patient's pulse ox to be below 90 on room air, troponin was elevated at 1156, D-dimer was elevated at 1.8 however CTA was unable to be performed due to chronic kidney disease. Chest x-ray showed pulmonary edema and pleural effusions, initially patient preferred to go to [facility] but Igor felt that the patient was more appropriate for [facility], [facility] did not have any beds available and patient did not want to go to [facility] in [place]. Patient was admitted to the PCU here, given IV Lasix, he was seen in consultation by cardiology and an echocardiogram was performed which showed normal ejection fraction of 60%. Patient's oxygen requirement improved during his hospitalization and he was weaned off oxygen completely at the time of his discharge from the hospital. Cardiology recommended conservative treatment for his non-STEMI. 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 I talked to the patient and his concerning establishing care with a bellman due to his chronic kidney disease, they agreed to see Dr. Shrestha as an outpatient and I contacted Dr. Shrestha who his office will be contacting the patient for an appointment. Patient has a history of anemia, he was given 1 unit of packed red blood cells and an IV iron infusion during his hospitalization. Exact cause of the patient's anemia was unknown and he stated that he had an extensive workup as an outpatient including capsule endoscopy without finding an etiology for his anemia, he stated it was proposed that his anemia could be from his chronic kidney disease. Patient stated that he was instructed to decrease his Eliquis to 2.5 mg twice a day for stroke prevention and had seen an EP physician regarding a Watchman procedure but the physician had not followed up with the patient. Patient stated he contacted the office regarding a decision on the procedure but the office has not contacted the patient back yet. Patient was taken off losartan on admission to the hospital, I decided at the patient's discharge that he should resume his losartan at a lower dosage and follow-up with nephrology as an outpatient. On 12/03/2023, patient was seen and examined: On examination he appeared in good health and spirits. Vital signs as documented. Skin warm and dry and without overt rashes. Neck without JVD, neck was supple, trachea midline, thyroid was normal. Lungs clear bilaterally, normal air movement was noted. Heart exam notable for irregular rhythm, normal sounds and absence of murmurs, rubs or gallops. Abdomen unremarkable and without evidence of organomegaly, masses, or abdominal aortic enlargement. Bowel sounds are present, abdomen is not distended. Extremities nonedematous, no cyanosis was noted, no clubbing was noted. Neuro: Cranial nerves II through XII are grossly intact, no focal motor deficits were noted, sensation to light touch and pinprick intact, motor exam 5/5 throughout. Psych: Patient is alert and oriented x3, he does not appear anxious or depressed, he does not appear agitated. Patient was discharged home in stable condition on 12/03/2023 Weight / BMI Weight Weight: 117.5 kg Body Mass Index (BMI) 34.3 ABG / Lab / Microbiology Data 12/03/23 07:18 12/03/23 07:18 Laboratory: Laboratory Results - last 24 hr 11/30/23 10:35: Crossmatch See Detail 12/02/23 16:06: POC Glucose 220 H 12/03/23 06:30: POC Glucose 161 H 12/03/23 07:18: WBC 5.5, RBC 3.14 L, Hgb 8.7 L, Hct 26.8 L, MCV 85.4, MCH 27.7, MCHC 32.5 D, RDW Std Deviation 56.1 H, RDW Coeff of Christiano 19.7 H, Plt Count 188, MPV 10.9, Immature Gran % (Auto) 0.400, Neut % (Auto) 63.5, Lymph % (Auto) 15.2 L, Dare % (Auto) 15.9 H, Eos % (Auto) 4.6, Baso % (Auto) 0.4, Absolute Neuts (auto) 3.5, Absolute Lymphs (auto) 0.83, Nucleated RBC % 0, Sodium 137, Potassium 3.5, Chloride 107, Carbon Dioxide 22.0, Anion Gap 8, BUN 37 H, Creatinine 2.23 H, Estim Creat Clear Calc 34.30, Est GFR (MDRD) Af Amer 36 L, Est GFR (MDRD) Non-Af 30 L, BUN/Creatinine Ratio 16.6, Glucose 176 H, Calcium 8.6 12/03/23 11:22: POC Glucose 232 H Microbiology: Microbiology 11/30/23 05:12 Mucosa - Nose SARS-CoV-2, Influenza & RSV (PCR) - Final D/C Instructions Discharge Diet: No restrictions Meaningful Use Info Meaningful Use Meaningful Use Diagnoses (Choose all that apply): CHF CHF KENDALL/ARB ordered at discharge?: Yes Documented LVEF (%): 60 Ischemic Stroke Statin Dosing Therapy Reference: STATIN DOSE THERAPY REFERENCE: * Patients > 75 years receive moderate or high dose statin therapy. * Patients 75 years or YOUNGER should receive HIGH intensity statin dose unless contraindicated. You will be required to document reason for non-treatment if statin daily dose does not meet guidelines. HIGH DOSE STATIN THERAPY DAILY Atorvastatin > than or = to 40 mg Rosuvastatin > than or = to 20 mg Amlodipine + Atorvastatin > than or = to 2.5/40 mg Ezetimibe + Simvastatin 10/80 mg Simvastatin 80mg Discharge Plan Admission Admit Date/Time: 11/30/23 08:32 Primary Reason for Your Visit: congestive heart failure Attending Provider: Timoteo Valle Primary Care Provider: Mark Duval Consulting Providers: Jermaine Sidhu; Juan Chen Instructions Additional Instructions / Restrictions: You will need a repeat BMP next week-get Dr. Daniel to order this Dr. Shrestha will contact you for an appointment Discharge Orders/Prescriptions Prescriptions: New amlodipine 5 mg Tablet 5 mg PO QHS Qty: 30 0RF Continued atorvastatin 40 MG tablet 40 mg PO QHS glimepiride 2 MG tablet 2 mg PO DAILY tamsulosin 0.4 MG capsule 0.4 mg PO DAILY hydroxychloroquine 200 MG tablet 200 mg PO DAILY metoprolol tartrate 25 MG tablet 12.5 mg PO BID pantoprazole 40 MG tablet,delayed release (DR/EC) 40 mg PO DAILY sitagliptin phosphate 50 MG tablet 50 mg PO DAILY albuterol sulfate 90 mcg/actuation HFA aerosol inhaler 2 puff INHALATION Q4H PRN (Reason: shortness of breath or wheezing) Eliquis 2.5 mg tablet 2.5 mg PO BID allopurinol 300 mg tablet 300 mg PO DAILY Patient Comments: PT TAKES 300MG AND 100MG AT THE SAME TIME TO EQUAL TOTAL DOSE OF 400MG allopurinol 100 mg tablet 100 mg PO DAILY Patient Comments: PT TAKES 300MG AND 100MG AT THE SAME TIME TO EQUAL TOTAL DOSE OF 400MG colchicine 0.6 mg tablet 0.6 mg PO DAILY Breztri Aerosphere 160-9-4.8 mcg/actuation HFA aerosol inhaler 2 inh inhalation BID fluticasone propionate [24 Hour Allergy Relief] 50 mcg/actuation spray,suspension 1 spray intranasal DAILY PRN (Reason: allergy symptoms) sildenafil [Viagra] 100 mg tablet 100 mg PO PRN PRN (Reason: sexual activity) Patient Comments: PT TAKES ONLY IF NEEDED Rx Instructions: administer 30 minutes to 4 hours before activity Changed losartan 100 MG tablet 50 mg PO DAILY Qty: 1 0RF Soaanz 40 mg tablet 20 mg PO BID Qty: 1 0RF Discontinued amlodipine 5 MG tablet 10 mg PO QHS Referrals / Follow Up: Mark Duval MD [Primary Care Provider] - Within 2 Weeks Disposition Disposition (needs filled in before D/C Order can be placed): Home, Self Care Charges/Coding Visit Charges Inpatient E&M: 98022 Disch Hosp >30min
== END 2023-12-03 15:15 | disposition home or self-care (01) | DRG 811 ==
LOC: ED 08:36 → PCU 10:42
PROVIDERS: Emergency Provider Emergency Medicine; PCP Family Medicine; Visit Provider Internal Medicine
DX: D64.9 Anemia, unspecified (principal); I21.A1 Myocardial infarction type 2; I50.31 Acute diastolic (congestive) heart failure; I13.0 Hypertensive heart and chronic kidney disease with heart failure and stage 1 through stage 4 chronic kidney disease, or unspecified chronic kidney disease; I48.21 Permanent atrial fibrillation; E11.22 Type 2 diabetes mellitus with diabetic chronic kidney disease; N18.32 Chronic kidney disease, stage 3b; I35.0 Nonrheumatic aortic (valve) stenosis; M10.9 Gout, unspecified; I25.10 Atherosclerotic heart disease of native coronary artery without angina pectoris; R09.02 Hypoxemia; Z11.52 Encounter for screening for COVID-19; Z79.84 Long term (current) use of oral hypoglycemic drugs; Z79.02 Long term (current) use of antithrombotics/antiplatelets; Z79.899 Other long term (current) drug therapy; Z87.891 Personal history of nicotine dependence
CPT/HCPCS: 36415; 71046; 80048; 80061; 81001; 82962; 83880; 84484; 85025; 85379; 85610; 85730; 86644; 86850; 86900; 86901; 86920; 86922; 87631; 93005; 93306; 94640; 99285; J7040; P9016; A4216; J1940; J2916

== ENCOUNTER 2024-09-04 09:29 | Outpatient (CLI) | payer MEDICARE, OTHER, SELFPAY ==
[2024-09-04 09:51] VITALS: BP 150/68; PULSE 67; RESP 18; TEMP 36.2; O2SAT 99; BMI 32.5
[2024-09-04 10:32] VITALS: BP 137/70; PULSE 74; RESP 16; TEMP 36.3; O2SAT 98
[2024-09-04 11:32] VITALS: BP 146/62; PULSE 65; RESP 16; TEMP 35.9; O2SAT 97
[2024-09-04 12:31] VITALS: BP 148/58; PULSE 66; RESP 14; TEMP 36.3; O2SAT 97
== END 2024-09-04 23:59 | disposition home or self-care (01) ==
LOC: MEDOUTP 09:31
PROVIDERS: PCP Family Medicine; Referring Provider Internal Medicine Hematology & Oncology; Visit Provider Internal Medicine Hematology & Oncology
DX: D50.0 Iron deficiency anemia secondary to blood loss (chronic) (principal)
CPT/HCPCS: 36430; 86850; 86900; 86901; P9016; A4216